=== PATIENT | female | born 1960 | race Caucasian/White ===

== ENCOUNTER 2016-12-01 13:00 | Emergency (ER) | payer OTHER ==
--- NOTE | 2016-12-01 13:24 | PDOC ---
History of Present Illness - General Chief Complaint: Injury Stated Complaint: RT KNEE PAIN Time Seen by Provider: 12/01/16 13:12 History Source: Patient Exam Limitations: No Limitations - History of Present Illness Initial Comments: 12/01/16 13:28 This is a 56-year-old female with a significant medical history of CKD Stage 5 ( no HD), Iron Deficiency, Severe Anemia (Recurrent visits for anemia), CAD (s/p CABG) who presents to the ER s/p knee injury Pt was walking on the street, lifted her right leg to go up a curb, slipped and fell backwards Pt fell backwards onto her buttocks No head trauma No LOC No amnesia Pt was able to get up and states she had difficulty walking Pain is 6/10 Describes pain as tightness Patient denies fever, chills, cough, dizziness, SOB, CP, AP, N/V/D, hematochezia , melena, hematuria, dysuria. PCP: Dr. Kay Mclaughlin Nephrology: Dr. Simone Pringle PMH: CAD, HTN, HLD, COPD, GERD, Renal Insufficiency, ANemia, Anxiety PSH: CABG Meds: please see MAR ALL: Amoxicillin, Erythromycin, PCN Social GENERAL/CONSTITUTIONAL: No: fever, chills, weakness, loss of appetite. HEAD, EYES, EARS, NOSE AND THROAT: No: change in vision, ear pain, discharge, sore throat, throat swelling. CARDIOVASCULAR: No: chest pain, lightheadedness, palpitations, syncope RESPIRATORY: No: cough, shortness of breath, wheezing, hemoptysis, stridor. GASTROINTESTINAL: No: nausea, vomiting, diarrhea, abdominal pain GENITOURINARY: No: dysuria, hematuria, frequency, urgency, flank pain. MUSCULOSKELETAL: Yes: right knee pain No: back pain SKIN AND BREASTS: No: lesions, pallor, rash or easy bruising. NEUROLOGIC: No: headache, vertigo, paresthesias, weakness ENDOCRINE: No: unexplained weight gain or loss HEMATOLOGIC/LYMPHATIC: No: anemia, easy bleeding, swelling nodes. GENERAL: The patient is in no acute distress, overall ill appearing HEAD: Normal with no signs of trauma. EYES: PERRLA, EOMI, sclera anicteric, conjunctiva clear. ENT: Ears normal, nares patent, oropharynx clear without exudates. Moist mucous membranes. NECK: Normal range of motion, supple without lymphadenopathy, JVD, or masses. LUNGS: Breath sounds equal, clear to auscultation bilaterally. No wheezes, and no crackles. HEART:Regular rate and rhythm, normal S1 and S2 without murmur, rub or gallop. ABDOMEN: Soft, nontender, normoactive bowel sounds. EXTREMITIES: (+) Right knee pain and swelling. No tenderness of the tibial area , stable anterior drawer and posterior drawer. Range of motion limited due to pain. NEUROLOGICAL: Cranial nerves II through XII grossly intact. Normal speech. No focal neurological deficits. MUSCULOSKELETAL: Back non-tender to palpation, no CVA tenderness SKIN: Warm, Dry, normal turgor, no rashes or lesions noted. Past History - Past Medical History Allergies/Adverse Reactions: Allergies Allergy/AdvReac Type Severity Reaction Status Date / Time amoxicillin Allergy Itching Verified 12/01/16 13:12 erythromycin base Allergy Itching Verified 12/01/16 13:12 [Erythromycin Base] Penicillins Allergy Itching Verified 12/01/16 13:12 Home Medications: Ambulatory Orders Metoprolol Succinate [Toprol XL -] 25 mg PO HS 04/22/13 Sodium Bicarbonate - 1,300 mg PO BID #20 tablet 01/15/15 Rosuvastatin [Crestor -] 20 mg PO HS 06/16/15 Ferrous Sulfate 325 mg PO BID 09/02/15 Pantoprazole Sodium [Protonix] 40 mg PO DAILY 11/16/15 Calcium Acetate [Phoslo -] 667 mg PO TIDCM 09/13/16 Darbepoetin Eulalio in Polysorbat [Aranesp] 60 mcg SQ WEEKLY 09/13/16 Acetaminophen W/ Codeine #3 [Tylenol # 3 -] 1 tab PO TID PRN #15 tablet MDD 3 Anemia: Yes Asthma: No Cancer: No Cardiac Disorders: Yes (TRIPLE BYPASS 2005,[place]) CVA: No COPD: No CHF: No Dementia: No Diabetes: No GI Disorders: No Disorders: Yes (NEPHROSIS. Kidney disease, not on dialysis) HTN: Yes Hypercholesterolemia: Yes Liver Disease: No Seizures: No Thyroid Disease: No - Surgical History Abdominal Surgery: No Appendectomy: No Cardiac Surgery: Yes (triple by pass 2005) Cholecystectomy: Yes (CABG) Lung Surgery: No Neurologic Surgery: No Orthopedic Surgery: No - Psycho/Social/Smoking Cessation Hx Anxiety: Yes Suicidal Ideation: No Smoking Status: No Smoking History: Never smoked Have you smoked in the past 12 months: No Number of Cigarettes Smoked Daily: 0 Cigars Per Day: 0 'Breaking Loose' booklet given: 02/14/16 Hx Alcohol Use: Yes (occasionally) Drug/Substance Use Hx: No Substance Use Type: None Hx Substance Use Treatment: No ED Treatment Course - RADIOLOGY Radiology Studies Ordered: Category Date Time Status KNEE 3 POS-RIGHT [RAD] Stat Radiology 12/01/16 13:23 Ordered Medical Decision Making - Medical Decision Making 12/01/16 14:00 Will do xray knee Pt refusing lab tests (I would like to do lab tests because pt BP slightly low, she has a history of severe anemia, and her last set of labs were done 1 month ago) Pt refusing to stay in the hospital (I have explained that I am not sure that she would even need to stay in the hospital) Pt would like to hold on getting pain meds until her xray is done Will re assess 12/01/16 16:06 Xray negative for acute fracture or dislocation Knee israel wrapped Follow up with orthopedics return to the ER with any other concerns or complaints Clinical Impression: knee pain *DC/Admit/Observation/Transfer Diagnosis at time of Disposition: Knee pain, right Qualifiers: Chronicity: acute Qualified Code(s): M25.561 - Pain in right knee - Discharge Dispostion Disposition: HOME Condition at time of disposition: Stable Admit: No - Prescriptions Prescriptions: Acetaminophen W/ Codeine #3 [Tylenol # 3 -] 1 tab PO TID PRN #15 tablet MDD 3 PRN Reason: knee pain - Referrals Referrals: Mayank Garcia MD [Staff Physician] - - Patient Instructions Printed Discharge Instructions: DI for Knee Sprain, DI for Knee Pain Additional Instructions: Jeny Please avoid any more trauma to your knee Please ice elevate and wrap your knee Please use a cane as needed to help you get around Please use medications as needed for pain Please follow up with the orthopedic doctors Return to the ER for any new complaints
[2016-12-01 13:34] VITALS: BP 98/50; PULSE 87; TEMP 98.1; BMI 21.9
== END 2016-12-01 16:15 | disposition home or self-care (01) ==
LOC: FER 13:00
DX: M25.561 Pain in right knee (principal); W10.1XXA Fall (on)(from) sidewalk curb, initial encounter; Y93.89 Activity, other specified; Y92.410 Unspecified street and highway as the place of occurrence of the external cause; I13.11 Hypertensive heart and chronic kidney disease without heart failure, with stage 5 chronic kidney disease, or end stage renal disease; N18.5 Chronic kidney disease, stage 5; Z95.1 Presence of aortocoronary bypass graft; E78.00 Pure hypercholesterolemia, unspecified
CPT/HCPCS: 73562-TC-RT; 99282-25

== ENCOUNTER 2016-12-22 10:28 | Observation (INO) | payer OTHER ==
[2016-12-22 11:11] LABS: MCH 25.1 pg (25.7-33.7); MCHC 30.3 g/dl (32.0-36.0); MEAN CELL VOLUME 82.8 fl (80-96); MEAN PLT VOLUME 7.1 fl (7.5-11.1); PLATELET COUNT 457 K/MM3 (134-434); RDW 17.7 % (11.6-15.6); WHITE BLOOD COUNT 9.9 K/mm3 (4.0-10.0)
--- NOTE | 2016-12-22 11:22 | PDOC ---
History of Present Illness - General Chief Complaint: Revisit, Lab Variance Stated Complaint: LOW H/H Time Seen by Provider: 12/22/16 10:35 - History of Present Illness Initial Comments: 12/22/16 11:23 56-year-old female with a past medical history of stage 4 to 5 CKD, anemia, requiring transfusions every 6-8 weeks, CABG, hypertension, hyperlipidemia, Her anemia is a mixed picture of CKD anemia, and iron deficiency anemia from chronic low-grade GI blood loss She has refused colonoscopy, and although dialysis has been discussed with her, at this time she has not wanted to start dialysis either Patient has been in her usual state of health, and had blood work done She was called today that her hemoglobin was 5.8, and told to come to the emergency department because she needs a transfusion She denies any chest pain or dyspnea on exertion She denies any change in her chronic lower extremity edema She is complaining of some knee pain after a fall, but she was seen in the emergency department for this, and did have x-rays She denies any bright red blood in her stool, or black tarry stool She denies any recent intercurrent illnesses-she denies any fevers or chills, vomiting or diarrhea, chest pain or abdominal pain She states that clinically, she would not have known that her blood counts were quite so low, but she does not feel any differently than she did 2-3 weeks ago She denies any other complaints at this time, and the remainder of the review of systems is negative Past History - Past Medical History Allergies/Adverse Reactions: Allergies Allergy/AdvReac Type Severity Reaction Status Date / Time amoxicillin Allergy Itching Verified 12/22/16 10:31 erythromycin base Allergy Itching Verified 12/22/16 10:31 [Erythromycin Base] Penicillins Allergy Itching Verified 12/22/16 10:31 Home Medications: Ambulatory Orders Metoprolol Succinate [Toprol XL -] 25 mg PO HS 04/22/13 Sodium Bicarbonate - 1,300 mg PO BID #20 tablet 01/15/15 Rosuvastatin [Crestor -] 20 mg PO HS 06/16/15 Ferrous Sulfate 325 mg PO BID 09/02/15 Pantoprazole Sodium [Protonix] 40 mg PO DAILY 11/16/15 Calcium Acetate [Phoslo -] 667 mg PO TIDCM 09/13/16 Darbepoetin Eulalio in Polysorbat [Aranesp] 60 mcg SQ WEEKLY 09/13/16 Acetaminophen W/ Codeine #3 [Tylenol # 3 -] 1 tab PO TID PRN #15 tablet MDD 3 Anemia: Yes Asthma: No Cancer: No Cardiac Disorders: Yes (TRIPLE BYPASS 2005,[place]) CVA: No COPD: No CHF: No Dementia: No Diabetes: No GI Disorders: No Disorders: Yes (NEPHROSIS. Kidney disease, not on dialysis) HTN: Yes Hypercholesterolemia: Yes Liver Disease: No Psychiatric Problems: Yes (ANXIETY) Seizures: No Thyroid Disease: No - Surgical History Abdominal Surgery: No Appendectomy: No Cardiac Surgery: Yes (triple by pass 2005) Cholecystectomy: Yes (CABG) Lung Surgery: No Neurologic Surgery: No Orthopedic Surgery: No - Psycho/Social/Smoking Cessation Hx Anxiety: Yes Suicidal Ideation: No Smoking Status: No Smoking History: Never smoked Have you smoked in the past 12 months: No Number of Cigarettes Smoked Daily: 0 Cigars Per Day: 0 Information on smoking cessation initiated: No 'Breaking Loose' booklet given: 02/14/16 Hx Alcohol Use: No Drug/Substance Use Hx: No Substance Use Type: None Hx Substance Use Treatment: No Review of Systems - Review of Systems Able to Perform ROS?: Yes Comments:: 12/22/16 11:25 . *Physical Exam - Vital Signs Last Vital Signs Temp Pulse Resp BP Pulse Ox 98 F 63 18 153/87 98 12/22/16 10:32 12/22/16 10:32 12/22/16 10:32 12/22/16 10:32 12/22/16 10:47 - Physical Exam Comments: 12/22/16 11:32 Physical exam Last Vital Signs Temp Pulse Resp BP Pulse Ox 98 F 63 18 153/87 98 12/22/16 10:32 12/22/16 10:32 12/22/16 10:32 12/22/16 10:32 12/22/16 10:47 GENERAL: The patient is awake, alert, and fully oriented, and in no apparent distress. HEAD: Normal with no signs of trauma. EYES: Conjunctiva pale ENT: Moist mucous membranes. NECK: Normal range of motion, supple LUNGS: Breath sounds equal, clear to auscultation bilaterally. No wheezes, and no crackles. HEART: Regular rate and rhythm, normal S1 and S2 without murmur, rub or gallop. ABDOMEN: Soft, nontender, normoactive bowel sounds. No guarding, no rebound. No masses appreciated. EXTREMITIES: 2+ pitting pedal edema, which patient states is chronic and unchanged NEUROLOGICAL: Cranial nerves II through XII grossly intact. Normal speech, normal gait. Grossly nonfocal neurologic exam PSYCH: Normal mood, normal affect. SKIN: Warm, Dry, ED Treatment Course - LABORATORY CBC & Chemistry Diagram: 12/22/16 11:00 12/22/16 11:00 - ADDITIONAL ORDERS Additional order review: 12/22/16 11:00 RBC 2.35 L MCV 82.8 MCHC 30.3 L RDW 17.7 H D MPV 7.1 L Medical Decision Making - Medical Decision Making 12/22/16 11:33 Patient with 2 potential sources of severe recurrent anemia-stage V CK D, and slow GI bleed, for which she has not had a colonoscopy or workup per her emissions testing and repair technician She has been requiring transfusions every 6-8 weeks, but is not had a transfusion for 12 weeks She was called today by her emissions testing and repair technician, and told that her hemoglobin was 5.8 and she needed to go to the hospital and have her transfusion 12/22/16 12:31 Laboratory Results - last 24 hr 12/22/16 12/22/16 12/22/16 11:00 11:00 11:31 WBC 9.9 RBC 2.35 L Hgb 5.9 L* Hct 19.4 L MCV 82.8 MCHC 30.3 L RDW 17.7 H D Plt Count 457 H D MPV 7.1 L Stool Occult Blood Trace Crossmatch See Detail 2Uof PRBCs ordered Will place in observation and transfuse 12/22/16 12:[address] Kay Mclaughlin-wants the patient admitted to the hospitalist service case discussed with hospitalist-Will place in observation for transfusion 12/22/16 12:52 EKG Sinus tachycardia 110 0 axis Normal AV and IV conduction time Normal QTC Nonspecific ST-T wave abnormality Chemistry machine down-CMP sent to [facility]-results still pending ADMITTING Case discussed in detail with admitting physician including history, physical exam and ancillary studies. Admitting physician has assumed care for the patient, will follow all pending diagnostics and will complete the evaluation and treatment. *DC/Admit/Observation/Transfer Diagnosis at time of Disposition: Severe anemia, ESRD (end stage renal disease) - Discharge Dispostion Disposition: AGAINST MEDICAL ADVICE Condition at time of disposition: Fair Admit: Yes
[2016-12-22] MEDS ORDERED: ONDANSETRON 4 MG/2 ML VIAL IVPB ONE (12:12)
[2016-12-22] MEDS ORDERED: ONDANSETRON 4 MG/2 ML VIAL ONE (12:15)
--- NOTE | 2016-12-22 12:49 | EKG ---
Test Reason : Blood Pressure : / mmHG Vent. Rate : 110 BPM Atrial Rate : 110 BPM P-R Int : 118 ms QRS Dur : 086 ms QT Int : 342 ms P-R-T Axes : 007 -06 060 degrees QTc Int : 462 ms POOR DATA QUALITY, INTERPRETATION MAY BE ADVERSELY AFFECTED SINUS TACHYCARDIA NONSPECIFIC T WAVE ABNORMALITY ABNORMAL ECG Confirmed by SISSY SINGLETON MD ([id number]) on 12/22/2016 12:48:31 PM Referred By: LISA Confirmed By:SISSY SINGLETON MD
[2016-12-22 13:30] LABS: TROPONIN I (DFP) 0.09 ng/ml (0.03-0.50)
[2016-12-22] MEDS ORDERED: ACETAMINOPHEN WITH CODEINE 300MG/30MG TABLET PO PRN (13:48)
--- NOTE | 2016-12-22 13:54 | HP ---
CHIEF COMPLAINT: fatigiue PCP: Eleazar carton machine operator: Dr Nichols HISTORY OF PRESENT ILLNESS: patient is a 56 -year-old female with a past medical history of stage V CK D, anemia ( multiple blood transfusions), CABG, hypertension, hyperlipidemia. Patient reports ongoing fatigue for the past week. was evaluated by her carton machine operator, Dr Nichols, blood work was completed and was referred to the emergency department for blood transfusion. ER course was notable for: (1)hgb 5.9 (2) creatine 7.7 BUN 80 (3) EKG sinus tachycardia, normal axis Recent Travel: none Social History: resides with Smoking:none Alcohol:one Drugs: none Family History: Allergies amoxicillin Allergy (Verified 12/22/16 10:31) Itching erythromycin base [Erythromycin Base] Allergy (Verified 12/22/16 10:31) Itching BECOMES VERY DIZZY Penicillins Allergy (Verified 12/22/16 10:31) Itching itchy HOME MEDICATIONS: Medication Instructions Recorded Metoprolol Succinate [Toprol XL -] 25 mg PO HS 04/22/13 Sodium Bicarbonate - 1,300 mg PO BID #20 tablet 01/15/15 Rosuvastatin [Crestor -] 20 mg PO HS 06/16/15 Ferrous Sulfate 325 mg PO BID 09/02/15 Pantoprazole Sodium [Protonix] 40 mg PO DAILY 11/16/15 Calcium Acetate [Phoslo -] 667 mg PO TIDCM 09/13/16 Darbepoetin Eulalio in Polysorbat 60 mcg SQ WEEKLY 09/13/16 [Aranesp] Acetaminophen W/ Codeine #3 1 tab PO TID PRN #15 tablet MDD 3 12/01/16 [Tylenol # 3 -] REVIEW OF SYSTEMS CONSTITUTIONAL: present: Generalized weakness, fatigue Absent: fever, chills, diaphoresis, , malaise, loss of appetite, weight change HEENT: Absent: rhinorrhea, nasal congestion, throat pain, throat swelling, difficulty swallowing, mouth swelling, ear pain, eye pain, visual changes CARDIOVASCULAR: Absent: chest pain, syncope, palpitations, irregular heart rate, lightheadedness , peripheral edema RESPIRATORY: Absent: cough, shortness of breath, dyspnea with exertion, orthopnea, wheezing, stridor, hemoptysis GASTROINTESTINAL: Absent: abdominal pain, abdominal distension, nausea, vomiting, diarrhea, constipation, melena, hematochezia GENITOURINARY: Absent: dysuria, frequency, urgency, hesitancy, hematuria, flank pain, genital pain MUSCULOSKELETAL: Absent: myalgia, arthralgia, joint swelling, back pain, neck pain SKIN: Absent: rash, itching, pallor HEMATOLOGIC/IMMUNOLOGIC: Absent: easy bleeding, easy bruising, lymphadenopathy, frequent infections ENDOCRINE: Absent: unexplained weight gain, unexplained weight loss, heat intolerance, cold intolerance NEUROLOGIC: Absent: headache, focal weakness or paresthesias, dizziness, unsteady gait, seizure, mental status changes, bladder or bowel incontinence PSYCHIATRIC: Absent: anxiety, depression, suicidal or homicidal ideation, hallucinations. PHYSICAL EXAMINATION GENERAL: Awake, alert, and fully oriented, in no acute distress. HEAD: Normal with no signs of trauma. EYES: Pupils equal, round and reactive to light, extraocular movements intact, sclera anicteric, pale conjunctiva, No lid lag. EARS, NOSE, THROAT: Ears normal, nares patent, oropharynx clear without exudates. pale mucous membranes. NECK: Normal range of motion, supple without lymphadenopathy, JVD, or masses. LUNGS: Breath sounds equal, clear to auscultation bilaterally. No wheezes, and no crackles. No accessory muscle use. HEART: Regular rate and rhythm, normal S1 and S2 without murmur, rub or gallop. ABDOMEN: Soft, nontender, not distended, normoactive bowel sounds, no guarding, no rebound, no masses. No hepatomegaly or splenomegaly. MUSCULOSKELETAL: Normal range of motion at all joints. No bony deformities or tenderness. No CVA tenderness. UPPER EXTREMITIES: 2+ pulses, warm, well-perfused. No cyanosis. No clubbing. Cap refill <2 seconds. No peripheral edema. LOWER EXTREMITIES: 2+ pulses, warm, well-perfused. No calf tenderness. No peripheral edema. NEUROLOGICAL: Cranial nerves II-XII intact. Normal speech. Normal gait. PSYCHIATRIC: Cooperative. Good eye contact. Appropriate mood and affect. SKIN: Warm, dry, normal turgor, no rashes or lesions noted. ASSESSMENT/PLAN: 1) heme: normocytic anemia - Hemoglobin 5.9, baseline 9,no active bleeding noted - known to be stool guaiac positive in the past has declined colonoscopy/EGD, continue to decline GI consult - transfuse 2 unit PRBC repeat in a.m. would prefer hgb 9 due to pmh of CAD and cardiomegly noted on past xray, lasix 40mg ordered between units 2)nephrology CKD V - Continues to decline hemodialysis - Continue PhosLo and sodium bicarbonate - case discussed with Dr Nichols (nephrology) creatine is at baseline 3) card Hypertension - continue Toprol B/P at goal CAD - continue Crestor 4) ms - Reports twisting right knee walking on ice last year, currently under the treatment of Dr. Garcia orthopedist - Continue Tylenol with Codeine when necessary for for pain - Scheduled outpatient MRI of right knee for 12/25/2016 at 11:30 AM F/E/N - Renal diet ppx - protonix - scd/lakeisha dispo: requires 24-hour observation Visit type - Emergency Visit Emergency Visit: Yes ED Registration Date: 12/22/16 Care time: The patient presented to the Emergency Department on the above date and was hospitalized for further evaluation of their emergent condition. - New Patient This patient is new to me today: Yes Date on this admission: 12/22/16 - Critical Care Critical Care patient: No
[2016-12-22 13:56] LABS: ALBUMIN 2.9 g/dl (3.4-5.0); BILIRUBIN,TOTAL 0.3 mg/dL (0.2-1.0); CALCIUM 9.5 mg/dL (8.5-10.1); TOT PROT 5.8 g/dl (6.4-8.2)
[2016-12-22 14:04] LABS: CREATININE 7.7 mg/dL (0.55-1.02)
[2016-12-22 14:10] VITALS: BMI 21.4
[2016-12-22] MEDS ORDERED: FUROSEMIDE 40 MG/4 ML INJECTABLE VIAL IVPUSH ONE (14:26)
[2016-12-22] MEDS ORDERED: MAG HYDROX/AL HYDROX/SIMETH 30 ML UNIT-DOSE CUP PO PRN (16:53)
[2016-12-22] MEDS ORDERED: CALCIUM ACETATE 667 MG CAPSULE (FP) PO SCH (17:30)
[2016-12-22] MEDS ORDERED: ROSUVASTATIN CA 20 MG TABLET (FP) PO ONE (22:00)
[2016-12-22] MEDS ORDERED: FERROUS SO4 325 MG TABLET (FP) PO SCH (22:00)
[2016-12-22] MEDS ORDERED: SODIUM BICARBONATE 650 MG TABLET PO SCH (22:00)
[2016-12-22 22:36] VITALS: BP 133/75; PULSE 113; TEMP 98.8
[2016-12-23] MEDS ORDERED: ROSUVASTATIN CA 10 MG TABLET (FP) PO SCH (22:00)
== END 2016-12-22 22:00 | disposition left against medical advice (07) ==
LOC: FER 10:28 → UNDOADMOB 12:56 → JERBED 12:56 → FM/S 13:24
PROVIDERS: ADMIT Internal Medicine; ATTEND Nurse Practitioner Acute Care
PROC: 30233N1 Transfusion of Nonautologous Red Blood Cells into Peripheral Vein, Percutaneous Approach (ICD-10-PCS; principal; 2016-12-22)
DX: D63.1 Anemia in chronic kidney disease (principal); I12.0 Hypertensive chronic kidney disease with stage 5 chronic kidney disease or end stage renal disease; N18.5 Chronic kidney disease, stage 5; I25.10 Atherosclerotic heart disease of native coronary artery without angina pectoris
CPT/HCPCS: 36430; P9021; 36415; 71010-TC; 80053; 82272; 82550; 84484; 85027; 86850; 86900; 86901; 86922; 93005; 99285-25; G0378; P9038; P9058

== ENCOUNTER 2017-05-26 11:07 | Day surgery (SDC) | payer OTHER ==
[2017-05-26] MEDS ORDERED: IRON SUCROSE INJECTION 100 MG in SODIUM CHLORIDE 100 ML IVPB ONE (12:00)
[2017-05-26 12:43] VITALS: TEMP 98.9
--- NOTE | 2017-05-26 13:13 | CONSULT ---
Consult Consult Specialty:: Nephrology ( Drs. Curtis/ Simone) Reason for Consultation:: Advanced CKD - History of Present Illness Chief Complaint: The patient is 56 y/o WF, admitted with profound Anemia for Iron infusion. The patient has ESRD, and had been refusing dialysis for a long time. Her last documented Hgb was 5.9 gm/dL., and her lasr dicumented GFR was 5 ml/min/1.73m2. H/o HTN, Coronary artery disease, anemia History of Present Illness: Patient with ESRD, CAD, s/p CABG, s/p Multiple transfusions for refractory Anemia, admitted for IV Iron Infusion. The patient had been refusing Renal replacement therapy, even at this low renal function. The patient is weak, tired, uremic. Reports making some urine. with her. - History Source History Provided By: Patient, Family Member Limitations to Obtaining History: No Limitations - Past Medical History Cardio/Vascular: Yes: CAD, HTN, Hyperlipdemia Pulmonary: Yes: COPD Gastrointestinal: Yes: GERD (on a PPI ) Renal/: Yes: Renal Failure, Renal Inusuff (Nephrotic syndrome as a child, Ischemic nephropathy). 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 History of Recent Travel: No Home Medications - Allergies Allergies/Adverse Reactions: Allergies Allergy/AdvReac Type Severity Reaction Status Date / Time amoxicillin Allergy Itching Verified 12/22/16 10:31 erythromycin base Allergy Itching Verified 12/22/16 10:31 [Erythromycin Base] Penicillins Allergy Itching Verified 12/22/16 10:31 - Home Medications Home Medications: Ambulatory Orders Metoprolol Succinate [Toprol XL -] 25 mg PO HS 04/22/13 Sodium Bicarbonate - 1,300 mg PO BID #20 tablet 01/15/15 Rosuvastatin [Crestor -] 20 mg PO HS 06/16/15 Ferrous Sulfate 325 mg PO BID 09/02/15 Pantoprazole Sodium [Protonix] 40 mg PO DAILY 11/16/15 Calcium Acetate [Phoslo -] 667 mg PO TIDCM 09/13/16 Darbepoetin Eulalio in Polysorbat [Aranesp] 60 mcg SQ WEEKLY 09/13/16 Acetaminophen W/ Codeine #3 [Tylenol # 3 -] 1 tab PO TID PRN #15 tablet MDD 3 Review of Systems - Review of Systems Constitutional: reports: Chills, Lethargy, Loss of Appetite, Weakness Cardiovascular: reports: Shortness of Breath. denies: Chest Pain Genitourinary: denies: Burning Musculoskeletal: reports: No Symptoms Neurological: reports: Confusion Physical Exam Vital Signs: Vital Signs Temperature 98.9 F 05/26/17 12:53 Pulse Rate 105 H 05/26/17 12:53 Respiratory Rate 22 05/26/17 12:53 Blood Pressure 131/76 05/26/17 12:53 O2 Sat by Pulse Oximetry (%) Constitutional: Yes: Anxious, Mild Distress, Pallor HENT: Yes: Atraumatic Neck: Yes: Trachea Midline Cardiovascular: Yes: S1, S2 Respiratory: Yes: CTA Bilaterally, Poor Air Entry. No: Rales, Rhonchi Gastrointestinal: Yes: Normal Bowel Sounds, Soft Edema: Yes Edema: LLE: Trace, RLE: Trace Neurological: Yes: Alert Problem List - Problems (1) CAD (coronary artery disease) Code(s): I25.10 - ATHSCL HEART DISEASE OF [place] CORONARY ARTERY W/O ANG PCTRS (2) Anemia Code(s): D64.9 - ANEMIA, UNSPECIFIED Qualifiers: Anemia type: unspecified type Qualified Code(s): D64.9 - Anemia, unspecified (3) Chronic kidney disease (CKD) Code(s): N18.9 - CHRONIC KIDNEY DISEASE, UNSPECIFIED (4) ESRD (end stage renal disease) Code(s): N18.6 - END STAGE RENAL DISEASE (5) Hypertension Code(s): I10 - ESSENTIAL (PRIMARY) HYPERTENSION (6) Uremia Code(s): N19 - UNSPECIFIED KIDNEY FAILURE Assessment/Plan 56 y/o female with advanced Renal failure, admitted for IV Iron infusion. Denies any chest pain.Has advanced ESRD, with uremic symptoms The patient should be started on some form of DRIVING TEACHER nu. Had lengthey discussion with her and her husbnd. The patient's clinical status might deteriorate to a point of imcompatibility with if, if she continues to decline DRIVING TEACHER. They are going to "think about it over the weekend". Will call me next week about their decision. Thanks again. Ursula Curtis MD
[2017-05-26 14:13] VITALS: BP 133/76; PULSE 95
== END 2017-05-26 14:11 | disposition home or self-care (01) ==
LOC: J7W 11:07 → JINFUSION 11:07
PROVIDERS: ATTEND Internal Medicine Nephrology
PROC: 3E033GC Introduction of Other Therapeutic Substance into Peripheral Vein, Percutaneous Approach (ICD-10-PCS; principal; 2017-05-26)
DX: D50.9 Iron deficiency anemia, unspecified (principal)
CPT/HCPCS: 96365; J1756

== ENCOUNTER 2018-07-24 12:05 | Day surgery (SDC) | payer OTHER ==
[2018-07-23 14:58] VITALS: BMI 22.2
[~2018-07-24 12:05] MED LIST: HEPARIN NA (PORCINE) 5,000 UNITS/ML 1ML VIAL SQ ONE
[2018-07-24] MEDS ORDERED: BUPIVACAINE HCL/PF 0.5% (5MG/ML) 10 ML VIAL ONE (12:44)
[2018-07-24] MEDS ORDERED: DEXAMETHASONE SOD PHOSPHATE/PF 10 MG/ML SDV ONE (12:44)
[2018-07-24] MEDS ORDERED: MIDAZOLAM HCL 2 MG/2 ML SINGLE DOSE VIAL ONE ×3 (12:46→13:50)
[2018-07-24] MEDS ORDERED: ONDANSETRON 4 MG/2 ML VIAL IVPUSH PRN (12:55)
--- NOTE | 2018-07-24 13:06 | HP ---
History & Physical Update - History History: No Change - Physical Physical: No Change - Assessment Assessment: No Change - Plan Plan: No Change (no change since visit on 07/09/18)
[2018-07-24] MEDS ORDERED: LIDOCAINE HCL 2% (20ML MULTI-DOSE VIAL) NR ONE (13:17)
[2018-07-24] MEDS ORDERED: HEPARIN NA (PORCINE) 5,000 UNITS/ML 1ML VIAL ONE (13:17)
[2018-07-24] MEDS ORDERED: PAPAVERINE HCL 30 MG/1 ML 10 ML VIAL NR ONE (13:17)
[2018-07-24] MEDS ORDERED: POVIDONE-IODINE OINTMENT 10% - 28.4 GM TUBE ONE (13:29)
[2018-07-24] MEDS ORDERED: HEPARIN NA (PORCINE) 5,000 UNITS/ML 1ML VIAL SQ ONE (14:02)
--- NOTE | 2018-07-24 15:09 | OP ---
Operative Note - Note: Operative Date: 07/24/18 Pre-Operative Diagnosis: ESRD Operation: Creation AV fistula left arm Findings: Small patent cephalic vein and brachial artery Post-Operative Diagnosis: Same as Pre-op Surgeon: Santos Woody [employer] Mgr: Galilea Melgar Anesthesiologist/GIS TECHNICIAN: Kelvin Weber Anesthesia: MAC
[2018-07-24 15:34] VITALS: TEMP 98.1
--- NOTE | 2018-07-24 16:29 | SURG ---
Surgery Prefitter Doors Note Prefitter Doors: Galilea Melgar PA-C Date of Service: 07/24/18 Diagnosis: ESRD Procedure: Creation AV fistula left arm I was present for the entirety of the operative procedure. For further detail, please refer to operative report. Visit type - Case Type Case Type: Scheduled - Emergency Emergency Visit: No - New patient This patient is new to me today: Yes Date on this admission: 07/24/18
[2018-07-24 18:17] VITALS: BP 136/80; PULSE 80
--- NOTE | 2018-08-07 13:55 | OP ---
DATE OF OPERATION: 07/24/2018 SURGEON: Santos Woody MD PROCEDURE: Creation of arteriovenous fistula, left arm. PREOPERATIVE DIAGNOSIS: Renal failure. POSTOPERATIVE DIAGNOSIS: Renal failure. ANESTHESIA: MAC. ANESTHESIOLOGIST: Kelvin Weber MD INSULATION WORKER APPRENTICE: ANATOLY Melgar OPERATIVE FINDINGS: The brachial artery and cephalic vein were patent, with diameters of approximately 2.5 mm. OPERATIVE PROCEDURE: Following routine patient identification with side and site verification, IV sedation was established. The left arm was prepped with ChloraPrep. Timeout was performed. Lidocaine 1% was infiltrated over the cephalic vein in the antecubital space. Skin incision was made and was carried down through subcutaneous tissues using cautery for hemostasis. The vein was mobilized and ligated distally. It was incised and distended with heparin and papaverine solution. No. 5 and No. 8 feeding tubes were passed proximally without resistance, and the vein was filled with heparin solution, was reoccluded. The artery was then exposed above the elbow using a separate incision. The artery was encircled proximally and distally with Vesseloops, and any side branches were ligated with silk ties and divided. The vein was exposed further proximally by extension of the incision and freed. The vein was then passed through a short subcutaneous tunnel to lie next to the artery. The artery was occluded with Vesseloops and opened on the exposed surface with a 6- mm arteriotomy. The end of the vein was spatulated and anastomosed to the side of the artery with running suture of 6-0 Prolene. Prior to completion of the suture line, the artery was allowed to backbleed and flush. The vein was flushed with heparin and was reoccluded. The suture line was completed and all vessels were released. There was flow through the anastomosis with a thrill in the vein. Bleeding from the suture line was controlled with Surgicel. When hemostasis was achieved, the wounds were irrigated and closed with interrupted suture of 3-0 Vicryl in subcutaneous tissues and skin cornelia. Sterile dressings were applied, and the patient was taken to recovery room in stable condition. Iva [id number] MTDD
== END 2018-07-24 17:10 | disposition home or self-care (01) ==
LOC: JASU-SURG 12:05
PROVIDERS: ATTEND Surgery
PROC: 03180ZD Bypass Left Brachial Artery to Upper Arm Vein, Open Approach (ICD-10-PCS; principal; 2018-07-24 13:00)
DX: I12.0 Hypertensive chronic kidney disease with stage 5 chronic kidney disease or end stage renal disease (principal)
CPT/HCPCS: 36415; 84132; 94760; J1644

== ENCOUNTER 2019-07-16 15:46 | Emergency (ER) | payer OTHER ==
[2019-07-16 15:53] VITALS: BP 153/89; PULSE 76; TEMP 98.7; BMI 21.4
== END 2019-07-16 16:51 | disposition left against medical advice (07) ==
LOC: JER 15:46
DX: Z53.21 Procedure and treatment not carried out due to patient leaving prior to being seen by health care provider (principal)
CPT/HCPCS: 99281-25

== ENCOUNTER 2019-07-22 21:50 | Inpatient (IN) | payer OTHER ==
--- NOTE | 2019-07-22 22:11 | PDOC ---
History of Present Illness - History of Present Illness Initial Comments: 59 year old female with PMH of HTN and ESRD presenting with tachycardia and fever to 100.8 during dialysis earlier today 10 hours after portacath placement. Dr. Torres called us and informed us that the patient's portacath on the left upper chest was placed a few days prior for a clotted left AVF and is also now non-functioning so a right chest portacath was placed. She dos have nausea/ vomitign ater every dialysis session and admits to that this time as well. Denies diarrhea, abdominal pain, or other symptoms. 07/23/19 05:21 <Herb Gill - Last Filed: 07/23/19 05:21> <Navdeep Lea - Last Filed: 07/23/19 06:18> - General Chief Complaint: Tachycardia Stated Complaint: HYPERTENTION Time Seen by Provider: 07/22/19 22:11 Past History - Past Medical History Anemia: Yes Asthma: No Cancer: No Cardiac Disorders: Yes (TRIPLE [place]PASS 2005,[place]) CVA: No COPD: No CHF: No Dementia: No Diabetes: No Dialysis: Yes GI Disorders: Yes (acid reflux) Disorders: Yes (NEPHROSIS. Kidney disease, not on dialysis) HTN: Yes Hypercholesterolemia: Yes Liver Disease: No Psychiatric Problems: Yes (ANXIETY) Seizures: No Thyroid Disease: No - Surgical History Abdominal Surgery: No Appendectomy: No Cardiac Surgery: Yes (triple by pass 2005) Cholecystectomy: Yes (CABG) Lung Surgery: No Neurologic Surgery: No Orthopedic Surgery: No - Suicide/Smoking/Psychosocial Hx Smoking Status: No Smoking History: Never smoked Have you smoked in the past 12 months: No Number of Cigarettes Smoked Daily: 0 Cigars Per Day: 0 'Breaking Loose' booklet given: 02/14/16 Hx Alcohol Use: No Drug/Substance Use Hx: No Substance Use Type: Alcohol Hx Substance Use Treatment: No <Herb Gill - Last Filed: 07/23/19 05:21> <Navdeep Lea - Last Filed: 07/23/19 06:18> - Past Medical History Allergies/Adverse Reactions: Allergies Allergy/AdvReac Type Severity Reaction Status Date / Time amoxicillin Allergy Itching Verified 07/22/19 22:00 erythromycin base Allergy Itching Verified 07/22/19 22:00 [Erythromycin Base] Penicillins Allergy Itching Verified 07/22/19 22:00 Home Medications: Ambulatory Orders Metoprolol Succinate [Toprol XL -] 25 mg PO DAILY 04/22/13 Albuterol Sulfate Inhaler - [Ventolin HFA Inhaler -] 2 inh PO PRN PRN 06/06/18 Cinacalcet HCl [Sensipar] 60 mg PO DAILY 06/06/18 Calcitriol 0.5 mcg PO DAILY 07/23/19 Ketorolac 0.5% Eye Drop 1 drop OP QID 07/23/19 Prednisolone 1% Ophthalmic [Pred Forte 1% -] 1 drop OP BID 07/23/19 Ranitidine [Zantac -] 150 mg PO DAILY 07/23/19 Rosuvastatin Calcium [Crestor] 20 mg PO DAILY 07/23/19 Review of Systems - Review of Systems Constitutional: No: Chills, Diaphoresis, Fever, Loss of Appetite HEENTM: No: Eye Pain, Blurred Vision, Tearing Respiratory: No: Cough, Orthopnea, Shortness of Breath Cardiac (ROS): No: Chest Pain, Edema, Irregular Heart Rate ABD/GI: Yes: Nausea, Vomiting. No: Diarrhea : No: Burning, Dysuria, Discharge Musculoskeletal: No: Back Pain, Joint Pain Integumentary: No: Lesions, Lumps, Pallor Neurological: No: Headache, Numbness, Paresthesia, Tingling Psychiatric: Yes: Anxiety. No: Depression Hematologic/Lymphatic: No: Anemia, Blood Clots, Easy Bleeding <Herb Gill - Last Filed: 07/23/19 05:21> *Physical Exam - Vital Signs Last Vital Signs Temp Pulse Resp BP Pulse Ox 98.3 F 135 H 20 147/94 96 07/22/19 22:00 07/22/19 22:00 07/22/19 22:00 07/22/19 22:00 07/22/19 22:00 - Physical Exam General Appearance: Yes: Nourished, Appropriately Dressed, Apparent Distress, Mild Distress (occasionally becomign very anxious and worried) HEENT: positive: EOMI, CURTIS, Normal ENT Inspection, Normal Voice Neck: positive: Trachea midline, Normal Thyroid, Supple. negative: Tender, Rigid Respiratory/Chest: positive: Lungs Clear, Normal Breath Sounds, Respiratory Distress, Other (left sided portacath entry site CDI (portacath removed) and right sided portacath site (portacath in pklce) CDI. left bidcep AVF CDI. ). negative: Chest Tender, Accessory Muscle Use Cardiovascular: positive: Regular Rhythm, Tachycardia. negative: Regular Rate Gastrointestinal/Abdominal: positive: Normal Bowel Sounds, Flat, Soft. negative : Tender Lymphatic: negative: Tenderness Musculoskeletal: positive: Normal Inspection. negative: Decreased Range of Motion Extremity: positive: Normal Capillary Refill, Normal Inspection, Normal Range of Motion. negative: Tender Integumentary: positive: Normal Color, Dry, Warm Neurologic: positive: Fully Oriented, Alert, Motor Strength 5/5. negative: Normal Mood/Affect (very easily bursts into tears and very anxious in gerneral) , Normal Response <Herb Gill - Last Filed: 07/23/19 05:21> - Vital Signs Last Vital Signs Temp Pulse Resp BP Pulse Ox 98.3 F 135 H 20 147/94 96 07/22/19 22:00 07/22/19 22:00 07/22/19 22:00 07/22/19 22:00 07/22/19 22:00 <Navdeep Lea - Last Filed: 07/23/19 06:18> ED Treatment Course - LABORATORY CBC & Chemistry Diagram: 07/23/19 00:00 07/23/19 00:00 <Herb Gill - Last Filed: 07/23/19 05:21> - LABORATORY CBC & Chemistry Diagram: 07/23/19 00:00 07/23/19 00:00 - ADDITIONAL ORDERS Additional order review: Laboratory Results 07/23/19 07/23/19 07/23/19 00:00 00:00 00:00 PT with INR 14.30 H INR 1.21 H PTT (Actin FS) VBG pH 7.39 POC VBG pCO2 40.0 POC VBG pO2 < 49 H VBG HCO3 23.6 VBG O2 Sat (Brian) 76.8 VBG Base Excess -0.8 Sodium Potassium Chloride Carbon Dioxide Anion Gap BUN Creatinine Est GFR (CKD-EPI)AfAm Est GFR (CKD-EPI)NonAf Random Glucose Lactic Acid 0.8 Calcium Total Bilirubin AST ALT Alkaline Phosphatase Total Protein Albumin 07/23/19 07/23/19 00:00 00:00 PT with INR INR PTT (Actin FS) 29.4 VBG pH POC VBG pCO2 POC VBG pO2 VBG HCO3 VBG O2 Sat (Brian) VBG Base Excess Sodium 137 Potassium 5.1 Chloride 102 Carbon Dioxide 23 Anion Gap 12 BUN 57.9 H Creatinine 7.0 H Est GFR (CKD-EPI)AfAm 6.84 Est GFR (CKD-EPI)NonAf 5.90 Random Glucose 95 Lactic Acid Calcium 9.4 Total Bilirubin 0.6 AST 8 L ALT 8 L Alkaline Phosphatase 180 H Total Protein 6.4 Albumin 3.3 L 07/23/19 00:00 RBC 3.62 MCV 90.2 MCHC 32.0 RDW 15.2 MPV 8.7 Neutrophils % 76.2 Lymphocytes % 13.8 Monocytes % 9.5 Eosinophils % 0.0 Basophils % 0.5 - Medications Given in the ED: ED Medications Discontinued Medications Generic Name Dose Route Start Last Admin Trade Name Freq PRN Reason Stop Dose Admin Vancomycin HCl 1,500 mg/ 500 mls @ 250 mls/hr 07/23/19 02:24 07/23/19 04:07 Dextrose IVPB 07/23/19 04:23 250 mls/hr ONCE ONE Administration <Navdeep Lea - Last Filed: 07/23/19 06:18> Medical Decision Making - Medical Decision Making 59 year old female with PMH of HTN, anxiety, and ESRD presenting to the ED after a fever and tachycardia noticed at dialysis 10 hours s/p right sided portacath placement. Patient afebrile here but remained tachcyardic throughout stay. LAbs WNL. Discussed patient with Dr. Torres and he will evaluate and dialyze tomorrow AM. Unclear reason for her tachycardia but patient does appear very anxious, However, given her immunocompromised ESRD status, patient will be admitted for further infectious workup with blood cultures pending and s/p one dose of vancomycin. 07/23/19 05:42 <Herb Gill - Last Filed: 07/23/19 05:21> *DC/Admit/Observation/Transfer - Discharge Dispostion Decision to Admit order: Yes <Herb Gill - Last Filed: 07/23/19 05:21> - Attestations Physician Attestion: 07/23/19 06:18 I have reviewed the plan as documented and agree with current plan as documented. Electronically co-signed by Navdeep Lea MD <Navdeep Lea - Last Filed: 07/23/19 06:18> Diagnosis at time of Disposition: Tachycardia - Discharge Dispostion Condition at time of disposition: Stable
--- NOTE | 2019-07-22 23:23 | PDOC ---
Documentation entered by Jim Espinoza SCRIBE, acting as scribe for Navdeep Lea MD. Navdeep Lea MD: This documentation has been prepared by the Alexis louise Daniel, SCRIBE, under my direction and personally reviewed by me in its entirety. I confirm that the documentation accurately reflects all work, treatment, procedures, and medical decision making performed by me. Attending Attestation - Resident Resident Name: Herb Gill - ED Attending Attestation I have performed the following: I have examined & evaluated the patient, The case was reviewed & discussed with the resident, I agree w/resident's findings & plan, Exceptions are as noted - HPI HPI: 07/22/19 22:50 The patient is a 59 year old female with a past medical history of CKD here today for evaluation of tachycardia and fever. The patient reports that she had a permacath placed today by Dr. Woody after her fistula clotted. She reports that she became very anxious today while at dialysis and was told that her heart rate was 138 and her temperature was 100.5. She also notes some nausea and vomiting but states that this is normal for her when she gets anxious. She was given tylenol at the dialysis center. Patient denies headache, lightheadedness. Denies chills. Denies chest pain, shortness of breath. Denies diarrhea, abdominal pain. Denies vision changes, weakness. Allergies: amoxicillin, erythromycin base, penicillins PCP: Marry Gan Wrap Yarn Sorter: Vanessa Torres 07/22/19 23:14 - Physicial Exam PE: 07/22/19 22:50 Pt anxious appearing but speaking in full sentences, comfortable when observed from a distance. rrr s1 s2 no mrg ctab Permacath site in R chest wall appears clean with no appreciable fluctuance or induration, no expressible purulence, no surrounding erythema, and clean gauze. Prior permacath site in L chest wall visible clean, no appreciable flutuance or induration, no expressible purulence, no surrounding erythema or warmth, clean gauze. 07/22/19 23:14 - Medical Decision Making 07/22/19 23:18 Sent from dialysis for tachycardia , fever concern for infection labs blood cx cxr ua/ucx (makes urine) admit
[2019-07-23 00:45] LABS: INR 1.21 (0.83-1.09); PROTHROMBIN TIME (PATIENT) 14.3 SEC (9.7-13.0)
[2019-07-23 00:49] LABS: VENOUS PH 7.39 (7.31-7.41); VENOUS PO2 < 49 mmHg (28-48)
[2019-07-23 00:51] LABS: ALBUMIN 3.3 g/dl (3.4-5.0); BILIRUBIN,TOTAL 0.6 mg/dL (0.2-1); BLOOD UREA NITROGEN 57.9 mg/dL (7-18); CALCIUM 9.4 mg/dL (8.5-10.1); POTASSIUM 5.1 mmol/L (3.5-5.1); TOT PROT 6.4 g/dl (6.4-8.2)
[2019-07-23 00:56] LABS: BASO % 0.5 % (0-2.0); HEMATOCRIT 32.6 % (32.4-45.2); HEMOGLOBIN 10.4 GM/dL (10.7-15.3); LYMPH % 13.8 % (8-40); MCH 28.8 pg (25.7-33.7); MEAN CELL VOLUME 90.2 fl (80-96); MEAN PLT VOLUME 8.7 fl (7.5-11.1); MONO % 9.5 % (3.8-10.2); NEUT % 76.2 % (42.8-82.8); PLATELET COUNT 140 K/MM3 (134-434); RBC 3.62 M/mm3 (3.60-5.2); RDW 15.2 % (11.6-15.6); WHITE BLOOD COUNT 9.8 K/mm3 (4.0-10.0)
[2019-07-23] MEDS ORDERED: VANCOMYCIN HCL 1,500 MG in DEXTROSE 5%-WATER - 500 ML IVPB ONE (02:24)
[2019-07-23] MEDS ORDERED: ACETAMINOPHEN 325 MG TABLET (FP) PO PRN ×2 (03:21→03:29)
[2019-07-23] MEDS ORDERED: oxyCODONE HCL 5 MG TABLET PO PRN (03:29)
--- NOTE | 2019-07-23 03:34 | HP ---
CHIEF COMPLAINT: Tachycardia PCP: HISTORY OF PRESENT ILLNESS: 59 year old female with a past medical history of Anemia, Triple by pass 2005/[place] , ESRD on HD, Acid reflux, HTN, HLD, Anxiety arrived to ED for evaluation of tachycardia and fever. The patient reports that she had a Permacath placed today by Dr. Woody after her fistula clotted. She reports that she became very anxious today while at dialysis heart rate was 138 and her temperature was 100.5, also complains of nausea, received tylenol at the dialysis center. Permacath site in R chest wall appears clean with no appreciable fluctuance or induration, no surrounding erythema, and clean gauze. Prior permacath site in L chest wall visible clean, no erythema or warmth, clean gauze. Patient denies headache, lightheadedness. Denies chills. Denies chest pain, shortness of breath. Denies diarrhea, abdominal pain. Denies vision changes, weakness. ER course was notable for: member noted tachycardia 135, afebrile--> recent permacath placed given Vanco x1 in ED follow up blood, urine culture Recent Travel:no PAST MEDICAL HISTORY: Anemia, Triple by pass 2005/[place], ESRD on HD, Acid reflux, HTN, HLD, Anxiety PAST SURGICAL HISTORY: CABG, Triple by pass 2005, cataract Social History: Smoking:no Alcohol:no Drugs: no Family History: Mother: DM, Father: colon Ca Allergies: amoxicillin Allergy (Verified 07/22/19 22:00) Itching erythromycin base [Erythromycin Base] Allergy (Verified 07/22/19 22:00) Itching BECOMES VERY DIZZY Penicillins Allergy (Verified 07/22/19 22:00) Itching itchy HOME MEDICATIONS: Home Medications Medication Instructions Recorded Metoprolol Succinate [Toprol XL -] 25 mg PO DAILY 04/22/13 Rosuvastatin [Crestor -] 20 mg PO HS 06/16/15 Albuterol Sulfate Inhaler - 2 inh PO PRN PRN 06/06/18 [Ventolin HFA Inhaler -] Cinacalcet HCl [Sensipar] 30 mg PO DAILY 06/06/18 Febuxostat [Uloric] 40 mg PO UTDICT 06/06/18 Calcium Carbonate/Simethicone 1 each PO PRN PRN 07/23/18 [[place] Heartburn+Gas] Oxycodone HCl/Acetaminophen 1 tab PO Q4H PRN #20 tablet MDD 6 07/24/18 [Percocet 5-325 mg Tablet] REVIEW OF SYSTEMS CONSTITUTIONAL: +fever, anxious HEENT: Absent: rhinorrhea, throat pain, mouth swelling, ear pain, eye pain, visual changes CARDIOVASCULAR: + tachycardia Absent: chest pain, syncope,peripheral edema RESPIRATORY: Absent: cough, shortness of breath, dyspnea with exertion, orthopnea, wheezing GASTROINTESTINAL: + Nausea Absent: abdominal pain, abdominal distension, diarrhea, constipation Absent: dysuria, frequency, urgency, hesitancy, hematuria, flank pain, genital pain MUSCULOSKELETAL: Absent: myalgia, arthralgia, joint swelling, back pain, neck pain SKIN: Absent: rash, itching, pallor NEUROLOGIC: Absent: headache, focal weakness or paresthesias, dizziness, unsteady gait, seizure, mental status changes, bladder or bowel incontinence PSYCHIATRIC: + anxious PHYSICAL EXAMINATION Vital Signs - 24 hr 07/22/19 22:00 Temperature 98.3 F Pulse Rate 135 H Respiratory 20 Rate Blood Pressure 147/94 O2 Sat by Pulse 96 Oximetry (%) GENERAL: Awake, alert, NAD LUNGS: Breath sounds equal, clear to auscultation bilaterally. No wheezes Chest/ HEART: Permacath site in R chest wall appears clean; Regular rate and rhythm, normal S1 and S2 without murmur ABDOMEN: Soft, nontender, not distended, normoactive bowel sounds, no guarding, no rebound, no masses MUSCULOSKELETAL: Normal range of motion at all joints. No bony deformities or tenderness. No CVA tenderness. NEUROLOGICAL: Cranial nerves II-XII intact. Normal speech PSYCHIATRIC: Cooperative. Good eye contact SKIN: Warm, dry, normal turgor Laboratory Results - last 24 hr 07/23/19 07/23/19 07/23/19 00:00 00:00 00:00 WBC 9.8 RBC 3.62 Hgb 10.4 L Hct 32.6 MCV 90.2 MCH 28.8 MCHC 32.0 RDW 15.2 Plt Count 140 D MPV 8.7 Absolute Neuts (auto) 7.5 Neutrophils % 76.2 Lymphocytes % 13.8 Monocytes % 9.5 Eosinophils % 0.0 Basophils % 0.5 Nucleated RBC % 0 PT with INR INR PTT (Actin FS) 29.4 VBG pH POC VBG pCO2 POC VBG pO2 VBG HCO3 VBG O2 Sat (Brian) VBG Base Excess Sodium 137 Potassium 5.1 Chloride 102 Carbon Dioxide 23 Anion Gap 12 BUN 57.9 H Creatinine 7.0 H Est GFR (CKD-EPI)AfAm 6.84 Est GFR (CKD-EPI)NonAf 5.90 Random Glucose 95 Lactic Acid Calcium 9.4 Total Bilirubin 0.6 AST 8 L ALT 8 L Alkaline Phosphatase 180 H Total Protein 6.4 Albumin 3.3 L 07/23/19 07/23/19 07/23/19 00:00 00:00 00:00 WBC RBC Hgb Hct MCV MCH MCHC RDW Plt Count MPV Absolute Neuts (auto) Neutrophils % Lymphocytes % Monocytes % Eosinophils % Basophils % Nucleated RBC % PT with INR 14.30 H INR 1.21 H PTT (Actin FS) VBG pH 7.39 POC VBG pCO2 40.0 POC VBG pO2 < 49 H VBG HCO3 23.6 VBG O2 Sat (Brian) 76.8 VBG Base Excess -0.8 Sodium Potassium Chloride Carbon Dioxide Anion Gap BUN Creatinine Est GFR (CKD-EPI)AfAm Est GFR (CKD-EPI)NonAf Random Glucose Lactic Acid 0.8 Calcium Total Bilirubin AST ALT Alkaline Phosphatase Total Protein Albumin ASSESSMENT/PLAN: 59 year old female with a past medical history of Anemia, Triple by pass 2005/ , ESRD on HD, Acid reflux, HTN, HLD, GOUT, Anxiety arrived to ED for evaluation of tachycardia and fever. The patient reports that she had a Permacath placed today by Dr. Woody after her fistula clotted. She reports that she became very anxious today while at dialysis heart rate was 138 and her temperature was 100.5, also complains of nausea, received tylenol at the dialysis center. # Tachycardia # ESRD on HD # s/p right chest permacath placement - follow up nephro in Am - [facility] dialysis [facility] for acute bleeding/ drainage - conitnue with Cinacalcet HCl30 mg PO DAILY - follow up urine, blood cx - tylenol for fever/pain #HTN/HLD - continue wiht Metoprolol Succinate 25 mg PO DAILY - continue with Rosuvastatin 20 mg PO HS - monitor BP closely # Anemia monitor h/h # GOUT - continue with Febuxostat 40 mg PO Problem List - Problem (1) Sinus tachycardia Code(s): R00.0 - TACHYCARDIA, UNSPECIFIED (2) ESRD (end stage renal disease) Code(s): N18.6 - END STAGE RENAL DISEASE (3) Gout Code(s): M10.9 - GOUT, UNSPECIFIED (4) Anemia Code(s): D64.9 - ANEMIA, UNSPECIFIED Qualifiers: Anemia type: due to chronic kidney disease Chronic kidney disease stage: on chronic dialysis Qualified Code(s): N18.6 - End stage renal disease; D63.1 - Anemia in chronic kidney disease; Z99.2 - Dependence on renal dialysis (5) Hyperlipidemia Code(s): E78.5 - HYPERLIPIDEMIA, UNSPECIFIED Qualifiers: Hyperlipidemia type: pure hypercholesterolemia Qualified Code(s): E78.00 - Pure hypercholesterolemia, unspecified; E78.0 - Pure hypercholesterolemia (6) Hypertension Code(s): I10 - ESSENTIAL (PRIMARY) HYPERTENSION Visit type - Emergency Visit Emergency Visit: Yes ED Registration Date: 07/23/19 Care time: The patient presented to the Emergency Department on the above date and was hospitalized for further evaluation of their emergent condition. - New Patient This patient is new to me today: Yes Date on this admission: 07/23/19 - Critical Care Critical Care patient: No
[2019-07-23 06:46] LABS: HEMATOCRIT 28.8 % (32.4-45.2); HEMOGLOBIN 9.4 GM/dL (10.7-15.3); MCH 29.1 pg (25.7-33.7); MCHC 32.7 g/dl (32.0-36.0); MEAN CELL VOLUME 89.2 fl (80-96); MEAN PLT VOLUME 8.6 fl (7.5-11.1); PLATELET COUNT 131 K/MM3 (134-434); RBC 3.23 M/mm3 (3.60-5.2); RDW 15.4 % (11.6-15.6); WHITE BLOOD COUNT 7.9 K/mm3 (4.0-10.0)
[2019-07-23 07:06] LABS: BLOOD UREA NITROGEN 61.9 mg/dL (7-18); POTASSIUM 5.1 mmol/L (3.5-5.1)
[2019-07-23 08:12] LABS: CREATININE 7.4 mg/dL (0.55-1.3)
[2019-07-23] MEDS ORDERED: PT OWN MED DRAWER 7, Y5N ONE (09:11)
[2019-07-23] MEDS: FEBUXOSTAT 40 MG TAB PO SCH (09:34)
[2019-07-23] MEDS: metoPROLOL SUCCINATE 25 MG TAB.SR.24H (FP) PO SCH (09:34)
[2019-07-23] MEDS ORDERED: CINACALCET HCL 30 MG TAB (FP) PO SCH ×2 (10:00→13:50)
--- NOTE | 2019-07-23 10:12 | PN ---
Progress Note (short form) - Note Progress Note: feeling [facility] SOB Vital Signs - 24 hr 07/22/19 07/23/19 22:00 07:21 Temperature 98.3 F 98.2 F Pulse Rate 135 H Pulse Rate [ 112 H Left Radial] Respiratory 20 18 Rate Blood Pressure 147/94 Blood Pressure 126/81 [Right Arm] O2 Sat by Pulse 96 97 Oximetry (%) Current Medications Generic Name Dose Route Start Last Admin Trade Name Freq PRN Reason Stop Dose Admin Acetaminophen 325 mg 07/23/19 03:29 Tylenol - PO 07/26/19 03:28 Q4H PRN PAIN LEVEL 1-5 Acetaminophen 650 mg 07/23/19 03:21 Tylenol - PO Q6H PRN PAIN OR FEVER Cinacalcet 30 mg 07/23/19 10:00 07/23/19 09:34 Sensipar - PO 30 mg DAILY YOHANA Administration Febuxostat 40 mg 07/23/19 10:00 07/23/19 09:34 Uloric - PO Not Given DAILY YOHANA Metoprolol Succinate 25 mg 07/23/19 10:00 07/23/19 09:34 Toprol Xl - PO 25 mg DAILY YOHANA Administration Oxycodone HCl 5 mg 07/23/19 03:29 Roxicodone - PO Q4H PRN PAIN LEVEL 1-5 Rosuvastatin Calcium 20 mg 07/23/19 22:00 Crestor - PO HS YOHANA Laboratory Results - last 24 hr 07/23/19 07/23/19 07/23/19 00:00 00:00 00:00 WBC 9.8 RBC 3.62 Hgb 10.4 L Hct 32.6 MCV 90.2 MCH 28.8 MCHC 32.0 RDW 15.2 Plt Count 140 D MPV 8.7 Absolute Neuts (auto) 7.5 Neutrophils % 76.2 Lymphocytes % 13.8 Monocytes % 9.5 Eosinophils % 0.0 Basophils % 0.5 Nucleated RBC % 0 PT with INR INR PTT (Actin FS) 29.4 VBG pH POC VBG pCO2 POC VBG pO2 VBG HCO3 VBG O2 Sat (Brian) VBG Base Excess Sodium 137 Potassium 5.1 Chloride 102 Carbon Dioxide 23 Anion Gap 12 BUN 57.9 H Creatinine 7.0 H Est GFR (CKD-EPI)AfAm 6.84 Est GFR (CKD-EPI)NonAf 5.90 Random Glucose 95 Lactic Acid Calcium 9.4 Total Bilirubin 0.6 AST 8 L ALT 8 L Alkaline Phosphatase 180 H Troponin I Total Protein 6.4 Albumin 3.3 L 07/23/19 07/23/19 07/23/19 00:00 00:00 00:00 WBC RBC Hgb Hct MCV MCH MCHC RDW Plt Count MPV Absolute Neuts (auto) Neutrophils % Lymphocytes % Monocytes % Eosinophils % Basophils % Nucleated RBC % PT with INR 14.30 H INR 1.21 H PTT (Actin FS) VBG pH 7.39 POC VBG pCO2 40.0 POC VBG pO2 < 49 H VBG HCO3 23.6 VBG O2 Sat (Brian) 76.8 VBG Base Excess -0.8 Sodium Potassium Chloride Carbon Dioxide Anion Gap BUN Creatinine Est GFR (CKD-EPI)AfAm Est GFR (CKD-EPI)NonAf Random Glucose Lactic Acid 0.8 Calcium Total Bilirubin AST ALT Alkaline Phosphatase Troponin I Total Protein Albumin 07/23/19 07/23/19 06:05 06:05 WBC 7.9 RBC 3.23 L Hgb 9.4 L Hct 28.8 L MCV 89.2 MCH 29.1 MCHC 32.7 RDW 15.4 Plt Count 131 L MPV 8.6 Absolute Neuts (auto) Neutrophils % Lymphocytes % Monocytes % Eosinophils % Basophils % Nucleated RBC % PT with INR INR PTT (Actin FS) VBG pH POC VBG pCO2 POC VBG pO2 VBG HCO3 VBG O2 Sat (Brian) VBG Base Excess Sodium 138 Potassium 5.1 Chloride 104 Carbon Dioxide 24 Anion Gap 10 BUN 61.9 H Creatinine 7.4 H* Est GFR (CKD-EPI)AfAm 6.40 Est GFR (CKD-EPI)NonAf 5.52 Random Glucose 107 H Lactic Acid Calcium 9.0 Total Bilirubin AST ALT Alkaline Phosphatase Troponin I 0.03 Total Protein Albumin S1` S2 RRR Lungs clear Abd-soft, NT no edema rt chest wall permcath+-- no signs of infection PLAN Psych eval continue with meds OOB Cardiology eval for tachycardia Renal and vascular eval Problem List - Problems (1) Tachycardia Code(s): R00.0 - TACHYCARDIA, UNSPECIFIED (2) Anemia Code(s): D64.9 - ANEMIA, UNSPECIFIED Qualifiers: Anemia type: due to chronic kidney disease Chronic kidney disease stage: on chronic dialysis Qualified Code(s): N18.6 - End stage renal disease; D63.1 - Anemia in chronic kidney disease; Z99.2 - Dependence on renal dialysis (3) CAD (coronary artery disease) Code(s): I25.10 - ATHSCL HEART DISEASE OF [place] CORONARY ARTERY W/O ANG PCTRS Qualifiers: Coronary Disease-Associated Artery/Lesion type: [place] artery [place] vs. transplanted heart: [place] heart Associated angina: without angina Qualified Code(s): I25.10 - Atherosclerotic heart disease of [place] coronary artery without angina pectoris (4) Dialysis catheter clot or failure Code(s): [id number] - (5) ESRD (end stage renal disease) Code(s): N18.6 - END STAGE RENAL DISEASE
--- NOTE | 2019-07-23 10:55 | EKG ---
Test Reason : Blood Pressure : / mmHG Vent. Rate : 123 BPM Atrial Rate : 123 BPM P-R Int : 150 ms QRS Dur : 088 ms QT Int : 324 ms P-R-T Axes : 022 -26 051 degrees QTc Int : 463 ms SINUS TACHYCARDIA OTHERWISE NORMAL ECG WHEN COMPARED WITH ECG OF 07-JUN-2018 14:32, MINIMAL CRITERIA FOR INFERIOR INFARCT ARE NO LONGER PRESENT Confirmed by AGUEDA ENCINAS, DIOR ([id number] on 07/23/2019 10:54:36 AM Referred By: Confirmed By:DIOR ROMEO MD
[2019-07-23] MEDS ORDERED: SODIUM CHLORIDE 250 ML IV PRN (13:39)
--- NOTE | 2019-07-23 13:39 | CONSULT ---
Consult Consult Specialty:: Nephrology Reason for Consultation:: ESRD - History of Present Illness Chief Complaint: sent in for fever History of Present Illness: Pt is a 59 year old female with pmhx of esrd, cad, anxiety and anemia who was sent in for fever and tachycardia. She had a permacath placed yesterday morning. She went to HD later in the day and was found to be tachycardic. She also had a fever of 100.8. She was sent in for evaluation. She is awake and alert. She denies chills. She says that she feels normal but is anxious. She has blood culutres done for low grad fever in HD that are negative to date. She denies dysuria. She denies cough. She denies shortness of breath. Her access recently clotted and she is on her second permacath in the last week. - History Source History Provided By: Patient, Medical Record - Past Medical History Cardio/Vascular: Yes: CAD, HTN, Hyperlipdemia Pulmonary: Yes: COPD Gastrointestinal: Yes: GERD (on a PPI ) Renal/: Yes: Renal Failure, Renal Inusuff (Nephrotic syndrome as a child, Ischemic nephropathy), Hemodialysis. 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 History of Recent Travel: No Home Medications - Allergies Allergies/Adverse Reactions: Allergies Allergy/AdvReac Type Severity Reaction Status Date / Time amoxicillin Allergy Itching Verified 07/22/19 22:00 erythromycin base Allergy Itching Verified 07/22/19 22:00 [Erythromycin Base] Penicillins Allergy Itching Verified 07/22/19 22:00 - Home Medications Home Medications: Ambulatory Orders Metoprolol Succinate [Toprol XL -] 25 mg PO DAILY 04/22/13 Albuterol Sulfate Inhaler - [Ventolin HFA Inhaler -] 2 inh PO PRN PRN 06/06/18 Cinacalcet HCl [Sensipar] 60 mg PO DAILY 07/12/18 Calcitriol 0.5 mcg PO DAILY 07/23/19 Ketorolac 0.5% Eye Drop 1 drop OP QID 07/23/19 Prednisolone 1% Ophthalmic [Pred Forte 1% -] 1 drop OP BID 07/23/19 Ranitidine [Zantac -] 150 mg PO DAILY 07/23/19 Rosuvastatin Calcium [Crestor] 20 mg PO DAILY 07/23/19 Family Disease History - Family Disease History Family History: Denies Review of Systems - Review of Systems Constitutional: reports: No Symptoms. denies: Chills Eyes: reports: No Symptoms HENT: reports: No Symptoms Neck: reports: No Symptoms Cardiovascular: denies: Chest Pain, Edema, Palpitations, Shortness of Breath Respiratory: reports: No Symptoms. denies: Cough, SOB Gastrointestinal: reports: No Symptoms Genitourinary: reports: No Symptoms Musculoskeletal: reports: No Symptoms Neurological: reports: No Symptoms Endocrine: reports: No Symptoms Psychiatric: reports: Anxiety Physical Exam Vital Signs: Vital Signs Temperature 98.2 F 07/23/19 07:21 Pulse Rate 112 H 07/23/19 07:21 Respiratory Rate 18 07/23/19 07:21 Blood Pressure 126/81 07/23/19 07:21 O2 Sat by Pulse Oximetry (%) 97 07/23/19 11:37 Constitutional: Yes: Calm Eyes: Yes: Conjunctiva Clear HENT: Yes: Atraumatic Neck: Yes: Supple Cardiovascular: Yes: S1, S2 Respiratory: Yes: CTA Bilaterally Gastrointestinal: Yes: Soft Musculoskeletal: Yes: WNL Edema: Yes Edema: LLE: Trace, RLE: Trace Neurological: Yes: Oriented Psychiatric: Yes: Oriented Labs: CBC, BMP 07/23/19 06:05 07/23/19 06:05 Imaging - Results Chest X-ray: Report Reviewed Problem List - Problems (1) Tachycardia Code(s): R00.0 - TACHYCARDIA, UNSPECIFIED (2) ESRD (end stage renal disease) Code(s): N18.6 - END STAGE RENAL DISEASE Assessment/Plan Current Medications Generic Name Dose Route Start Last Admin Trade Name Freq PRN Reason Stop Dose Admin Acetaminophen 325 mg 07/23/19 03:29 Tylenol - PO 07/26/19 03:28 Q4H PRN PAIN LEVEL 1-5 Acetaminophen 650 mg 07/23/19 03:21 Tylenol - PO Q6H PRN PAIN OR FEVER Cinacalcet 30 mg 07/23/19 10:00 07/23/19 09:34 Sensipar - PO 30 mg DAILY YOHANA Administration Febuxostat 40 mg 07/23/19 10:00 07/23/19 09:34 Uloric - PO Not Given DAILY YOHANA Metoprolol Succinate 25 mg 07/23/19 10:00 07/23/19 09:34 Toprol Xl - PO 25 mg DAILY YOHANA Administration Oxycodone HCl 5 mg 07/23/19 03:29 Roxicodone - PO Q4H PRN PAIN LEVEL 1-5 Rosuvastatin Calcium 20 mg 07/23/19 22:00 Crestor - PO HS YOHANA Impression 1. ESRD 2. tachycardia 3. htn 4. cad 5. anxiety 6. tertiary hyperpara 7. fever Plan - HD today - follow cultures - cultures from HD negative - unclear if she has infection - cardiology evaluation for tachycardia - pulse and bp are improved - pt on 60 of sensipar - permacath 3 hrs, 2 k bath, 300 abf, weight 51, no heparin, hectorol 5 mcg
[2019-07-23 14:51] VITALS: BMI 22.0
[2019-07-23] MEDS ORDERED: ROSUVASTATIN CA 20 MG TABLET (FP) PO SCH (22:00)
--- NOTE | 2019-07-24 08:43 | CONSULT ---
Consult - text type - Consultation Consultation Note: Mrs. Atkinson has ESRD on HD. She had a new Permacath placed via right IJV on Sunday and went to dialysis. She was found to be tachycardic and was sent to ER. She remains with a mild tachycardia but other dsouza feels well. She had dialysis yesterday without incident. She has severe anxiety disorder but appears relaxed at this time. The catheter site is clean and dry. EKG shows sinus tachycardia. She will need new AV access creation when medically stable. I will follow in my office.
[2019-07-24] MEDS ORDERED: BACITRACIN 15 GM TUBE TOPICAL OINTMENT TP SCH (10:00)
--- NOTE | 2019-07-24 10:04 | DS ---
Physical Examination Vital Signs: Vital Signs Temperature 98.8 F 07/24/19 06:00 Pulse Rate 116 H 07/24/19 06:00 Respiratory Rate 22 H 07/24/19 06:00 Blood Pressure 120/94 07/24/19 06:00 O2 Sat by Pulse Oximetry (%) 95 07/23/19 21:00 Labs: CBC, BMP 07/23/19 06:05 07/23/19 06:05 Discharge Summary Reason For Visit: TACHYCARDIA Current Active Problems Gout (Acute) Tachycardia (Acute) Condition: Stable - Instructions - Home Medications Comprehensive Discharge Medication List: Ambulatory Orders Metoprolol Succinate [Toprol XL -] 25 mg PO DAILY 04/22/13 Albuterol Sulfate Inhaler - [Ventolin HFA Inhaler -] 2 inh PO PRN PRN 06/06/18 Cinacalcet HCl [Sensipar] 60 mg PO DAILY 06/06/18 Calcitriol 0.5 mcg PO DAILY 07/23/19 Ketorolac 0.5% Eye Drop 1 drop OP QID 07/23/19 Prednisolone 1% Ophthalmic [Pred Forte 1% -] 1 drop OP BID 07/23/19 Ranitidine [Zantac -] 150 mg PO DAILY 07/23/19 Rosuvastatin Calcium [Crestor] 20 mg PO DAILY 07/23/19
[2019-07-24] MEDS ORDERED: clonazePAM 0.5 MG TABLET PO PRN (10:07)
[2019-07-24] MEDS ORDERED: PT OWN MED DRAWER 7, Y5N ONE (10:28)
[2019-07-24] MEDS ORDERED: PANTOPRAZOLE 40 MG TABLET (FP) PO SCH (10:45)
[2019-07-24] MEDS: FEBUXOSTAT 40 MG TAB PO SCH (11:21)
[2019-07-24] MEDS: metoPROLOL SUCCINATE 25 MG TAB.SR.24H (FP) PO SCH (11:21)
--- NOTE | 2019-07-24 12:51 | PN ---
Progress Note, Physician History of Present Illness: Pt seen and examined at bedside. She is much calmer today. She is eager to go home. - Current Medication List Current Medications: Active Medications Acetaminophen (Tylenol -) 325 mg PO Q4H PRN PRN Reason: PAIN LEVEL 1-5 Stop: 07/26/19 03:28 Acetaminophen (Tylenol -) 650 mg PO Q6H PRN PRN Reason: PAIN OR FEVER Bacitracin (Bacitracin -) 1 applic TP DAILY [facility] Last Admin: 07/24/19 11:20 Dose: 1 applic Cinacalcet (Sensipar -) 60 mg PO DAILY [facility] Last Admin: 07/24/19 11:22 Dose: 60 mg Clonazepam (Klonopin -) 0.25 mg PO Q8H PRN PRN Reason: ANXIETY Last Admin: 07/24/19 11:19 Dose: 0.25 mg Febuxostat (Uloric -) 40 mg PO DAILY [facility] Last Admin: 07/24/19 11:21 Dose: Not Given Sodium Chloride (Normal Saline -) 250 mls @ 3,000 mls/hr IV PRN PRN PRN Reason: Hypotension during Dialysis Stop: 07/24/19 13:40 Metoprolol Succinate (Toprol Xl -) 25 mg PO DAILY [facility] Last Admin: 07/24/19 11:21 Dose: 25 mg Oxycodone HCl (Roxicodone -) 5 mg PO Q4H PRN PRN Reason: PAIN LEVEL 1-5 Pantoprazole Sodium (Protonix -) 40 mg PO DAILY [facility] Last Admin: 07/24/19 11:25 Dose: 40 mg Rosuvastatin Calcium (Crestor -) 20 mg PO HS [facility] Last Admin: 07/23/19 22:13 Dose: 20 mg - Objective Vital Signs: Vital Signs Temperature 98.8 F 07/24/19 06:00 Pulse Rate 116 H 07/24/19 06:00 Respiratory Rate 22 H 07/24/19 06:00 Blood Pressure 120/94 07/24/19 06:00 O2 Sat by Pulse Oximetry (%) 95 07/23/19 21:00 Constitutional: Yes: Calm Eyes: Yes: Conjunctiva Clear HENT: Yes: Atraumatic Neck: Yes: Supple Cardiovascular: Yes: S1, S2 Respiratory: Yes: CTA Bilaterally Gastrointestinal: Yes: Soft Genitourinary: Yes: WNL Musculoskeletal: Yes: WNL Edema: No Neurological: Yes: Oriented Psychiatric: Yes: Oriented Labs: CBC, BMP 07/23/19 06:05 07/23/19 06:05 INR, PTT INR 1.21 (0.83-1.09) H 07/23/19 00:00 Problem List - Problems (1) Tachycardia Code(s): R00.0 - TACHYCARDIA, UNSPECIFIED (2) ESRD (end stage renal disease) Code(s): N18.6 - END STAGE RENAL DISEASE Assessment/Plan Current Medications Generic Name Dose Route Start Last Admin Trade Name Freq PRN Reason Stop Dose Admin Acetaminophen 325 mg 07/23/19 03:29 Tylenol - PO 07/26/19 03:28 Q4H PRN PAIN LEVEL 1-5 Acetaminophen 650 mg 07/23/19 03:21 Tylenol - PO Q6H PRN PAIN OR FEVER Bacitracin 1 applic 07/24/19 10:00 07/24/19 11:20 Bacitracin - TP 1 applic DAILY YOHANA Administration Cinacalcet 60 mg 07/23/19 13:50 07/24/19 11:22 Sensipar - PO 60 mg DAILY YOHANA Administration Clonazepam 0.25 mg 07/24/19 10:07 07/24/19 11:19 Klonopin - PO 0.25 mg Q8H PRN Administration ANXIETY Febuxostat 40 mg 07/23/19 10:00 07/24/19 11:21 Uloric - PO Not Given DAILY YOHANA Sodium Chloride 250 mls @ 3,000 mls/hr 07/23/19 13:39 Normal Saline - IV 07/24/19 13:40 PRN PRN Hypotension during Dialysis Metoprolol Succinate 25 mg 07/23/19 10:00 07/24/19 11:21 Toprol Xl - PO 25 mg DAILY YOHANA Administration Oxycodone HCl 5 mg 07/23/19 03:29 Roxicodone - PO Q4H PRN PAIN LEVEL 1-5 Pantoprazole Sodium 40 mg 07/24/19 10:45 07/24/19 11:25 Protonix - PO 40 mg DAILY YOHANA Administration Rosuvastatin Calcium 20 mg 07/23/19 22:00 07/23/19 22:13 Crestor - PO 20 mg HS YOHANA Administration Microbiology 07/23/19 00:00 Blood - Peripheral Venous Blood Culture - Preliminary NO GROWTH OBTAINED AFTER 24 HOURS, INCUBATION TO CONTINUE FOR 4 DAYS. 07/23/19 00:00 Blood - Peripheral Venous Blood Culture - Preliminary NO GROWTH OBTAINED AFTER 24 HOURS, INCUBATION TO CONTINUE FOR 4 DAYS. Impression 1. ESRD 2. tachycardia 3. htn 4. cad 5. anxiety 6. tertiary hyperpara 7. fever Plan - pt tolerated HD yesterday - she does get very anxious at times - vascular input appreciated - cardio input pending - pt does not have fevers or chills, cultures negative so far - permacath 3 hrs, 2 k bath, 300 abf, weight 51, no heparin, hectorol 5 mcg
--- NOTE | 2019-07-24 13:41 | CON.PSY ---
Psychiatry Consult Chief Complaint: 59 Dhara old female wirh ESRD and on Dialysis seen for Psych eval for anxiety frpom chronic medical conditions. Symptoms: reports: Anxiety - Previous Psychiatric Treatment Outpatient: None Inpatient: None - Previous Substance Abuse Treatment Outpatient: None Inpatient: None - Current Medications Current Medications: Active Medications Acetaminophen (Tylenol -) 325 mg PO Q4H PRN PRN Reason: PAIN LEVEL 1-5 Stop: 07/26/19 03:28 Acetaminophen (Tylenol -) 650 mg PO Q6H PRN PRN Reason: PAIN OR FEVER Bacitracin (Bacitracin -) 1 applic TP DAILY [facility] Last Admin: 07/24/19 11:20 Dose: 1 applic Cinacalcet (Sensipar -) 60 mg PO DAILY [facility] Last Admin: 07/24/19 11:22 Dose: 60 mg Clonazepam (Klonopin -) 0.25 mg PO Q8H PRN PRN Reason: ANXIETY Last Admin: 07/24/19 11:19 Dose: 0.25 mg Febuxostat (Uloric -) 40 mg PO DAILY [facility] Last Admin: 07/24/19 11:21 Dose: Not Given Sodium Chloride (Normal Saline -) 250 mls @ 3,000 mls/hr IV PRN PRN PRN Reason: Hypotension during Dialysis Stop: 07/24/19 13:40 Metoprolol Succinate (Toprol Xl -) 25 mg PO DAILY [facility] Last Admin: 07/24/19 11:21 Dose: 25 mg Oxycodone HCl (Roxicodone -) 5 mg PO Q4H PRN PRN Reason: PAIN LEVEL 1-5 Pantoprazole Sodium (Protonix -) 40 mg PO DAILY [facility] Last Admin: 07/24/19 11:25 Dose: 40 mg Rosuvastatin Calcium (Crestor -) 20 mg PO HS [facility] Last Admin: 07/23/19 22:13 Dose: 20 mg - Allergies Allergies: Allergies Allergy/AdvReac Type Severity Reaction Status Date / Time amoxicillin Allergy Itching Verified 07/22/19 22:00 erythromycin base Allergy Itching Verified 07/22/19 22:00 [Erythromycin Base] Penicillins Allergy Itching Verified 07/22/19 22:00 - Current Living Status Usual Living Arrangement: Alone - Current Mental Status Evaluation Appearance: Well Groomed Attitude: Cooperative - Affect Affect: Constrictive Appropriateness: Appropriate to Content - Mood Mood: Anxious - Speech/Language Expressive: Coherent - Psychomotor Activity Psychomotor Activity: Slowed - Thought Process Thought Process: Intact - Thought Content Hallucinations: Absent Delusions: Absent - Self Perception Self Perception: No Impairment - Cognition Attention: Alert Orientation: Time Memory, Immediate Recall: Intact Memory, Short Term: 3/3 Memory, Remote with Promptin/3 - Concentration Serial Sevens Intact: Yes Simple Calculations Intact: Yes - Abstraction Proverb Interpretation: Intact Judgement: Intact - Insight Insight: Intact - Impulse Control Impulse Control: Good Control - Suicidal Ideation Suicidal Ideation: No - Homicidal Ideation Homicidal Ideation: No Assessment/Plan 1) Buspar 10 mg po0 bid for anxiety
[2019-07-24 14:45] VITALS: BP 118/76; PULSE 106; TEMP 97.9
[2019-07-24] MEDS ORDERED: busPIRone HCL 10 MG TABLET (FP) PO SCH (22:00)
== END 2019-07-24 15:12 | disposition home or self-care (01) | DRG 308 ==
LOC: JER 21:50 → JERBED 07-23 02:10 → J4W 07-23 14:14
PROVIDERS: ADMIT Internal Medicine; ATTEND Internal Medicine
PROC: 5A1D70Z Performance of Urinary Filtration, Intermittent, Less than 6 Hours Per Day (ICD-10-PCS; principal; 2019-07-23)
DX: R00.0 Tachycardia, unspecified (principal); N18.6 End stage renal disease; I12.0 Hypertensive chronic kidney disease with stage 5 chronic kidney disease or end stage renal disease; Z99.2 Dependence on renal dialysis; R50.9 Fever, unspecified; F41.9 Anxiety disorder, unspecified; Z88.0 Allergy status to penicillin; D64.9 Anemia, unspecified; I25.2 Old myocardial infarction; E78.5 Hyperlipidemia, unspecified; K21.9 Gastro-esophageal reflux disease without esophagitis; M10.9 Gout, unspecified; I25.10 Atherosclerotic heart disease of native coronary artery without angina pectoris; Z95.1 Presence of aortocoronary bypass graft
CPT/HCPCS: 36415; 71045-TC-FY; 80048; 80053; 82803; 83605; 84484; 85025; 85027; 85610; 85730; 86803; 87040; 87340; 93005; 93010; 99285-25

== ENCOUNTER 2019-09-17 11:28 | Inpatient (IN) | payer OTHER ==
[2019-09-17 13:40] LABS: BASO % 0.9 % (0-2.0); EOS % 0.1 % (0-4.5); HEMATOCRIT 37.3 % (32.4-45.2); HEMOGLOBIN 11.7 GM/dL (10.7-15.3); LYMPH % 5.9 % (8-40); MCHC 31.4 g/dl (32.0-36.0); MEAN CELL VOLUME 92.5 fl (80-96); MEAN PLT VOLUME 7.5 fl (7.5-11.1); MONO % 3.4 % (3.8-10.2); NEUT % 89.7 % (42.8-82.8); PLATELET COUNT 153 K/MM3 (134-434); RBC 4.03 M/mm3 (3.60-5.2); RDW 18.7 % (11.6-15.6); WHITE BLOOD COUNT 12.4 K/mm3 (4.0-10.0)
[2019-09-17 14:41] LABS: ALBUMIN 3.5 g/dl (3.4-5.0); BILIRUBIN,TOTAL 0.5 mg/dL (0.2-1); BLOOD UREA NITROGEN 31.9 mg/dL (7-18); CALCIUM 9.7 mg/dL (8.5-10.1); CREATININE 5.9 mg/dL (0.55-1.3); MAGNESIUM 2.1 mg/dL (1.8-2.4); PHOSPHOROUS 4.5 mg/dL (2.5-4.9); POTASSIUM 5.7 mmol/L (3.5-5.1); TOT PROT 6.4 g/dl (6.4-8.2)
--- NOTE | 2019-09-17 15:14 | EKG ---
Test Reason : Blood Pressure : / mmHG Vent. Rate : 091 BPM Atrial Rate : 091 BPM P-R Int : 166 ms QRS Dur : 092 ms QT Int : 368 ms P-R-T Axes : 034 007 066 degrees QTc Int : 452 ms NORMAL SINUS RHYTHM NORMAL ECG WHEN COMPARED WITH ECG OF 22-JUL-2019 22:43, NO SIGNIFICANT CHANGE WAS FOUND Confirmed by DIOR ROMEO MD ([id number]) on 09/17/2019 3:13:35 PM Referred By: Confirmed By:DIOR ROMEO MD
--- NOTE | 2019-09-17 15:35 | PDOC ---
Documentation entered by Krystal Feliciano SCRIBE, acting as scribe for Terry Sandy MD. Terry Sandy MD: This documentation has been prepared by the Braden louise Sammi, SCRIBE, under my direction and personally reviewed by me in its entirety. I confirm that the documentation accurately reflects all work, treatment, procedures, and medical decision making performed by me. History of Present Illness - General Chief Complaint: Altered Mental Status Stated Complaint: AMS Time Seen by Provider: 09/17/19 12:14 - History of Present Illness Initial Comments: 09/17/19 13:07 The patient is a 59 year old female who presents to the emergency department for evaluation of altered mental status. The patient states she can not recall the events leading to her arrival to the ED. at bedside states he was picking up his from the hair salon and noticed she wasn't responding appropriately. He notes while he was driving the patient was making a grimase, moaning, and urinated on herself. reports he started "pumping her chest " while driving to the local FD where the patient came out of the episode and was transported to the ED. notes mild blood to the patient's mouth during episode. PMH: HTN, high cholesterol, cabg (~12 yrs), nephrosis (dialysis MWF) PCP: Jovanny Gan Nephro: Melissa 09/17/19 15:26 Past History - Past Medical History Allergies/Adverse Reactions: Allergies Allergy/AdvReac Type Severity Reaction Status Date / Time amoxicillin Allergy Itching Verified 07/22/19 22:00 erythromycin base Allergy Itching Verified 07/22/19 22:00 [Erythromycin Base] Penicillins Allergy Itching Verified 07/22/19 22:00 Home Medications: Ambulatory Orders Metoprolol Succinate [Toprol XL -] 25 mg PO DAILY 04/22/13 Albuterol Sulfate Inhaler - [Ventolin HFA Inhaler -] 2 inh PO PRN PRN 06/06/18 Cinacalcet HCl [Sensipar] 60 mg PO DAILY 06/06/18 Calcitriol 0.5 mcg PO DAILY 07/23/19 Ketorolac 0.5% Eye Drop 1 drop OP QID 07/23/19 Prednisolone 1% Ophthalmic [Pred Forte 1% -] 1 drop OP BID 07/23/19 Rosuvastatin Calcium [Crestor] 20 mg PO DAILY 07/23/19 Buspirone HCl [Buspar -] 10 mg PO BID #60 tablet 07/24/19 Pantoprazole Sodium [Protonix -] 40 mg PO DAILY #30 tablet.ec 07/24/19 Anemia: Yes Asthma: No Cancer: No Cardiac Disorders: Yes (TRIPLE BYPASS 2005,[place],CAD) CVA: No COPD: No CHF: No Dementia: No Diabetes: No Dialysis: Yes GI Disorders: Yes (acid reflux) Disorders: Yes (ESRD,HD) HTN: Yes Hypercholesterolemia: Yes Liver Disease: No Psychiatric Problems: Yes (Anxiety) Seizures: No Thyroid Disease: No - Surgical History Abdominal Surgery: No Appendectomy: No Cardiac Surgery: Yes (triple by pass 2005) Cholecystectomy: Yes (CABG) Lung Surgery: No Neurologic Surgery: No Orthopedic Surgery: No - Psycho Social/Smoking Cessation Hx Smoking Status: No Smoking History: Never smoked Have you smoked in the past 12 months: No Number of Cigarettes Smoked Daily: 0 Cigars Per Day: 0 'Breaking Loose' booklet given: 02/14/16 Hx Alcohol Use: No Drug/Substance Use Hx: No Substance Use Type: None Hx Substance Use Treatment: No Review of Systems - Review of Systems Able to Perform ROS?: No (altered mental status) *Physical Exam - Vital Signs Last Vital Signs Temp Pulse Resp BP Pulse Ox 97 F L 83 20 166/100 94 L 09/17/19 11:58 09/17/19 11:58 09/17/19 11:58 09/17/19 11:58 09/17/19 12:00 - Physical Exam Comments: 09/17/19 13:18 CONSTITUTIONAL: Well-appearing; well-nourished; in no apparent distress HEAD: Normocephalic; atraumatic EYES: PERRL; EOM intact ENMT: +mild bruising left tongue +some coagulative blood in the mouth NECK: +right tunnel subclavian catheter. Supple; non-tender; no cervical lymphadenopathy CARD: Normal S1, S2; no murmurs, rubs, or gallops RESP: Normal chest excursion with respiration; breath sounds clear and equal bilaterally; no wheezes, rhonchi, or rales ABD: Soft, non-distended; non-tender; no palpable organomegaly, no palpable hernias EXT: Normal ROM in all four extremities; non-tender to palpation; distal pulses intact SKIN: Warm, dry, no rash NEURO: +bilateral lower extremity drift. Normal speech, cranial nerves II-XII intact, negative pronator drift, 5/5 motor x4, normal sensation to light touch in all 4 extremities, normal cerebellar exam , normal reflexes and tone ED Treatment Course - LABORATORY CBC & Chemistry Diagram: 09/17/19 13:00 09/17/19 13:00 - ADDITIONAL ORDERS Additional order review: Laboratory Results 09/17/19 13:00 Sodium 140 Potassium 5.7 H Chloride 108 H Carbon Dioxide 24 Anion Gap 8 BUN 31.9 H Creatinine 5.9 H Est GFR (CKD-EPI)AfAm 8.41 Est GFR (CKD-EPI)NonAf 7.26 Random Glucose 111 H Calcium 9.7 Phosphorus 4.5 Magnesium 2.1 Total Bilirubin 0.5 AST 20 ALT 12 L Alkaline Phosphatase 152 H Total Protein 6.4 Albumin 3.5 09/17/19 13:00 RBC 4.03 MCV 92.5 MCHC 31.4 L RDW 18.7 H MPV 7.5 D Neutrophils % 89.7 H Lymphocytes % 5.9 L D Monocytes % 3.4 L Eosinophils % 0.1 D Basophils % 0.9 - RADIOLOGY Radiology Studies Ordered: Category Date Time Status HEAD CT WITHOUT CONTRAST [CT] Stat CT Scan 09/17/19 13:07 Completed CHEST X-RAY PORTABLE* [RAD] Stat Radiology 09/17/19 13:07 Completed Medical Decision Making - Medical Decision Making 09/17/19 15:33 Patient is a frail-appearing 59-year-old female with multiple comorbidities who presents with signs and symptoms of a focal complex seizure with loss of bladder control and a postictal period. Upon evaluation, patient was noted to be awake and alert, oriented to self, place, year and month. Deformity of the left pupil is noted consistent with previous cataract surgery. No nystagmus is noted. Several ecchymoses are noted to the left side of the tongue with coagulated blood within the oropharynx. No other focal neurological deficits are identified. CT of head shows no evidence of acute intracranial pathology. EKG reveals hyperacute T waves consistent with potassium of 5.7. Dr. vasquez of renal has been consulted and evaluated the patient. Will admit patient for further evaluation of suspected seizure. Will place on seizure precautions. Discharge - Discharge Information Problems reviewed: Yes Clinical Impression/Diagnosis: Seizure, Hyperkalemia Chronic kidney disease (CKD) Qualifiers: Chronic kidney disease stage: stage 4 (severe) Qualified Code(s): N18.4 - Chronic kidney disease, stage 4 (severe) Condition: Fair - Admission Yes - Follow up/Referral Referrals: Marry Gan MD [Primary Care Provider] - - Patient Discharge Instructions - Post Discharge Activity
[2019-09-17] MEDS ORDERED: SODIUM CHLORIDE 250 ML IV PRN (17:31)
--- NOTE | 2019-09-17 17:33 | CONSULT ---
Consult Consult Specialty:: Nephrology Reason for Consultation:: ESRD - History of Present Illness Chief Complaint: seizure History of Present Illness: Pt is a 59 year old female with pmhx of esrd, htn, hld, cad and anxiety who presents to the ER after having seizure. She said she was very upset yesterday after her meeting with the state department and did not sleep last night. Her also says that she was very worked up since yesterday. She was not responding appropriately in the hair salon when he went to pick her up. In the car she began to make grimaces and urinated on herself. She is now awake and alert. She did bite her tongue. - History Source History Provided By: Patient, Medical Record - Past Medical History Cardio/Vascular: Yes: CAD, HTN, Hyperlipdemia Pulmonary: Yes: COPD Gastrointestinal: Yes: GERD (on a PPI ) Renal/: Yes: Renal Failure, Renal Inusuff (Nephrotic syndrome as a child, Ischemic nephropathy), Hemodialysis ...LMP: 01/07/09 Psych: Yes: Anxiety - Past Surgical History Past Surgical History: Yes: AV Fistula/Graft, CABG - Alcohol/Substance Use Hx Alcohol Use: No History of Substance Use: reports: None - Smoking History Smoking history: Never smoked Have you smoked in the past 12 months: No Aproximately how many cigarettes per day: 0 - Social History Usual Living Arrangement: Alone ADL: Independent 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 History of Recent Travel: No Home Medications - Allergies Allergies/Adverse Reactions: Allergies Allergy/AdvReac Type Severity Reaction Status Date / Time amoxicillin Allergy Itching Verified 07/22/19 22:00 erythromycin base Allergy Itching Verified 07/22/19 22:00 [Erythromycin Base] Penicillins Allergy Itching Verified 07/22/19 22:00 - Home Medications Home Medications: Ambulatory Orders Metoprolol Succinate [Toprol XL -] 25 mg PO DAILY 04/22/13 Albuterol Sulfate Inhaler - [Ventolin HFA Inhaler -] 2 inh PO PRN PRN 06/06/18 Cinacalcet HCl [Sensipar] 60 mg PO DAILY 06/06/18 Calcitriol 0.5 mcg PO DAILY 07/23/19 Ketorolac 0.5% Eye Drop 1 drop OP QID 07/23/19 Prednisolone 1% Ophthalmic [Pred Forte 1% -] 1 drop OP BID 07/23/19 Rosuvastatin Calcium [Crestor] 20 mg PO DAILY 07/23/19 Buspirone HCl [Buspar -] 10 mg PO BID #60 tablet 07/24/19 Pantoprazole Sodium [Protonix -] 40 mg PO DAILY #30 tablet.ec 07/24/19 Family Medical History Family History: Denies Review of Systems - Review of Systems Constitutional: reports: Malaise Eyes: reports: No Symptoms HENT: reports: No Symptoms Neck: reports: No Symptoms Cardiovascular: reports: No Symptoms Respiratory: reports: No Symptoms Gastrointestinal: reports: No Symptoms Genitourinary: reports: No Symptoms Musculoskeletal: reports: No Symptoms Integumentary: reports: No Symptoms Neurological: reports: Seizure Endocrine: reports: No Symptoms Hematology/Lymphatic: reports: No Symptoms Psychiatric: reports: No Symptoms Physical Exam Vital Signs: Vital Signs Temperature 98.2 F 09/17/19 15:02 Pulse Rate 95 H 09/17/19 15:02 Respiratory Rate 20 09/17/19 15:02 Blood Pressure 154/92 09/17/19 15:02 O2 Sat by Pulse Oximetry (%) 98 09/17/19 15:02 Constitutional: Yes: Calm Eyes: Yes: Conjunctiva Clear HENT: Yes: Atraumatic Neck: Yes: Supple Cardiovascular: Yes: S1, S2 Respiratory: Yes: CTA Bilaterally Gastrointestinal: Yes: Soft Renal/: Yes: WNL Musculoskeletal: Yes: WNL Edema: LLE: Trace, RLE: Trace Integumentary: Yes: Tattoos Neurological: Yes: Oriented Psychiatric: Yes: Oriented Labs: CBC, BMP 09/17/19 13:00 09/17/19 13:00 Imaging - Results Chest X-ray: Report Reviewed Cat Scan: Report Reviewed Problem List - Problems (1) Hyperkalemia Code(s): E87.5 - HYPERKALEMIA (2) Seizure Code(s): R56.9 - UNSPECIFIED CONVULSIONS (3) ESRD (end stage renal disease) Code(s): N18.6 - END STAGE RENAL DISEASE Assessment/Plan Current Medications Generic Name Dose Route Start Last Admin Trade Name Freq PRN Reason Stop Dose Admin Sodium Chloride 250 mls @ 3,000 mls/hr 09/17/19 17:31 Normal Saline - IV 09/18/19 17:31 PRN PRN Hypotension during Dialysis Laboratory Tests 09/17/19 13:00 Calcium 9.7 Phosphorus 4.5 Magnesium 2.1 Albumin 3.5 Impression 1. ESRD 2. seizure 3. htn 4. cad 5. anxiety 6. tertiary hyperpara 7. hyperkalemia Plan - will arrange for HD today - will treat potassium with HD - calcium phos and mag are within normal range - saw pt in Er earlier today when she presented - recommend psych follow up as she stopped her anxiety meds - recommend neuro evaluation - permacath 3 hrs, 2 k bath, 300 abf, weight 51, no heparin, hectorol 5 mcg
[2019-09-17] MEDS ORDERED: LORazepam 2 MG/ML SDV VIAL IVPUSH PRN (21:16)
[2019-09-17] MEDS: busPIRone HCL 10 MG TABLET (FP) PO SCH (23:29)
[2019-09-17] MEDS: levETIRAcetam 500 MG TABLET (FP) PO SCH (23:29)
[2019-09-18 08:04] LABS: BASO % 1.3 % (0-2.0); HEMATOCRIT 35.2 % (32.4-45.2); HEMOGLOBIN 11.3 GM/dL (10.7-15.3); LYMPH % 21.3 % (8-40); MCH 28.8 pg (25.7-33.7); MEAN CELL VOLUME 89.9 fl (80-96); MEAN PLT VOLUME 7.7 fl (7.5-11.1); MONO % 8.2 % (3.8-10.2); NEUT % 69.2 % (42.8-82.8); PLATELET COUNT 140 K/MM3 (134-434); RBC 3.91 M/mm3 (3.60-5.2); RDW 18.1 % (11.6-15.6); WHITE BLOOD COUNT 6.5 K/mm3 (4.0-10.0)
[2019-09-18 08:35] VITALS: BMI 20.7
[2019-09-18 08:49] LABS: ALBUMIN 3.3 g/dl (3.4-5.0); BILIRUBIN,TOTAL 0.5 mg/dL (0.2-1); BLOOD UREA NITROGEN 12.9 mg/dL (7-18); CALCIUM 9.5 mg/dL (8.5-10.1); CREATININE 3.3 mg/dL (0.55-1.3); POTASSIUM 3.3 mmol/L (3.5-5.1); TOT PROT 5.7 g/dl (6.4-8.2)
--- NOTE | 2019-09-18 09:09 | CON.NEURO ---
Consult - Past Medical History Cardio/Vascular: Yes: CAD, HTN, Hyperlipdemia Pulmonary: Yes: COPD Gastrointestinal: Yes: GERD (on a PPI ) Renal/: Yes: Renal Failure, Renal Inusuff (Nephrotic syndrome as a child, Ischemic nephropathy), Hemodialysis ...LMP: 01/07/09 Psych: Yes: Anxiety - Past Surgical History Past Surgical History: Yes: AV Fistula/Graft, CABG - Alcohol/Substance Use Hx Alcohol Use: No History of Substance Use: reports: None - Smoking History Smoking history: Never smoked Have you smoked in the past 12 months: No Aproximately how many cigarettes per day: 0 - Social History Usual Living Arrangement: Alone ADL: Independent 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 History of Recent Travel: No Home Medications - Allergies Allergies/Adverse Reactions: Allergies Allergy/AdvReac Type Severity Reaction Status Date / Time amoxicillin Allergy Itching Verified 07/22/19 22:00 erythromycin base Allergy Itching Verified 07/22/19 22:00 [Erythromycin Base] Penicillins Allergy Itching Verified 07/22/19 22:00 - Home Medications Home Medications: Ambulatory Orders Metoprolol Succinate [Toprol XL -] 25 mg PO DAILY 04/22/13 Albuterol Sulfate Inhaler - [Ventolin HFA Inhaler -] 2 inh PO PRN PRN 06/06/18 Cinacalcet HCl [Sensipar] 60 mg PO DAILY 06/06/18 Calcitriol 0.5 mcg PO DAILY 07/23/19 Ketorolac 0.5% Eye Drop 1 drop OP QID 07/23/19 Prednisolone 1% Ophthalmic [Pred Forte 1% -] 1 drop OP BID 07/23/19 Rosuvastatin Calcium [Crestor] 20 mg PO DAILY 07/23/19 Buspirone HCl [Buspar -] 10 mg PO BID #60 tablet 07/24/19 Pantoprazole Sodium [Protonix -] 40 mg PO DAILY #30 tablet.ec 07/24/19 Physical Exam-Neuro Vital Signs: Vital Signs Temperature 97.5 F L 09/18/19 06:00 Pulse Rate 47 L 09/18/19 06:00 Respiratory Rate 18 09/18/19 06:00 Blood Pressure 142/97 09/18/19 06:00 O2 Sat by Pulse Oximetry (%) 100 09/17/19 22:00 Labs: CBC, BMP 09/18/19 06:25 09/18/19 06:25 Assessment/Plan cc New onset seizure HPI 59 year old female came to hospital for Newe onset seizure and tongue bite. Jeff has never had seizure in past. She was on aixiolytic medication and she has generalized tonic clonic seizure with tongue bite. There was no incontinence, his ct head was normal. She do have ESRD and getting HD. She was very upset with something yesterday and did not sleep the night before. PMH: HTN, high cholesterol, cabg (~12 yrs), nephrosis (dialysis MWF) Allergies/Adverse Reactions: Allergies Allergy/AdvReac Type Severity Reaction Status Date / Time amoxicillin Allergy Itching Verified 07/22/19 22:00 erythromycin base Allergy Itching Verified 07/22/19 22:00 [Erythromycin Base] Penicillins Allergy Itching Verified 07/22/19 22:00 Home Medications: Metoprolol Succinate [Toprol XL -] 25 mg PO DAILY 04/22/13 Albuterol Sulfate Inhaler - [Ventolin HFA Inhaler -] 2 inh PO PRN PRN 06/06/18 Cinacalcet HCl [Sensipar] 60 mg PO DAILY 06/06/18 Calcitriol 0.5 mcg PO DAILY 07/23/19 Ketorolac 0.5% Eye Drop 1 drop OP QID 07/23/19 Prednisolone 1% Ophthalmic [Pred Forte 1% -] 1 drop OP BID 07/23/19 Rosuvastatin Calcium [Crestor] 20 mg PO DAILY 07/23/19 Buspirone HCl [Buspar -] 10 mg PO BID #60 tablet 07/24/19 Pantoprazole Sodium [Protonix -] 40 mg PO DAILY #30 tablet.ec 07/24/19 ROS,FH,SH unreamrkable NEUROLOGICAL EXAMINATION Alert oriented x 3 neck is supple and febrile eomi, pupils reactive no face asymmetry, facial sensation is normal moving all ext reflex are generalized diminished sensation is normal gait testing deferred ct head no acute findings Assessment/Plan 59 year old female history of ESRD ,cad,htn,hld. Patient has new onseizure, she was under lot of stress , Seizure seems to be induced and now she is back to baseline. She was loaded with keppra and ct head unremarkable. PLan: She would need mri of brain and eeg, she is claustrophobic , if mri cant be done at hospital . It can be done outpatinet -EEG - Continue tanner for now, and over the intermodal dispatcher, she would not require medication and would be stopped - seizure precautions were discussed, she is not driving Thankign you so much Harsh Szymanski MD
[2019-09-18] MEDS ORDERED: CALCITRIOL 0.25 MCG CAPSULE (FP) PO SCH (10:00)
[2019-09-18] MEDS ORDERED: metoPROLOL SUCCINATE 25 MG TAB.SR.24H (FP) PO SCH (10:00)
[2019-09-18] MEDS ORDERED: CINACALCET HCL 30 MG TAB (FP) PO SCH (10:00)
--- NOTE | 2019-09-18 11:42 | HP ---
Admitting History and Physical - Past Medical History Cardiovascular: Yes: CAD, HTN, Hyperlipdemia Pulmonary: Yes: COPD Gastrointestinal: Yes: GERD (on a PPI ) Renal/: Yes: Renal Failure, Renal Inusuff (Nephrotic syndrome as a child, Ischemic nephropathy), Hemodialysis ...LMP: 01/07/09 Heme/Onc: Yes: Anemia Psych: Yes: Anxiety - Past Surgical History Past Surgical History: Yes: AV Fistula/Graft, CABG - Smoking History Smoking history: Never smoked Have you smoked in the past 12 months: No Aproximately how many cigarettes per day: 0 - Alcohol/Substance Use Hx Alcohol Use: No History of Substance Use: reports: None - Social History ADL: Independent 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 History of Recent Travel: No Home Medications - Allergies Allergies/Adverse Reactions: Allergies Allergy/AdvReac Type Severity Reaction Status Date / Time amoxicillin Allergy Itching Verified 07/22/19 22:00 erythromycin base Allergy Itching Verified 07/22/19 22:00 [Erythromycin Base] Penicillins Allergy Itching Verified 07/22/19 22:00 - Home Medications Home Medications: Ambulatory Orders Metoprolol Succinate [Toprol XL -] 25 mg PO DAILY 04/22/13 Albuterol Sulfate Inhaler - [Ventolin HFA Inhaler -] 2 inh PO PRN PRN 06/06/18 Cinacalcet HCl [Sensipar] 60 mg PO DAILY 06/06/18 Calcitriol 0.5 mcg PO DAILY 07/23/19 Ketorolac 0.5% Eye Drop 1 drop OP QID 07/23/19 Prednisolone 1% Ophthalmic [Pred Forte 1% -] 1 drop OP BID 07/23/19 Rosuvastatin Calcium [Crestor] 20 mg PO DAILY 07/23/19 Buspirone HCl [Buspar -] 10 mg PO BID #60 tablet 07/24/19 Pantoprazole Sodium [Protonix -] 40 mg PO DAILY #30 tablet.ec 07/24/19 Physical Examination Vital Signs: Vital Signs Temperature 97.5 F L 09/18/19 06:00 Pulse Rate 47 L 09/18/19 06:00 Respiratory Rate 18 09/18/19 06:00 Blood Pressure 142/97 09/18/19 06:00 O2 Sat by Pulse Oximetry (%) 100 09/17/19 22:00 Labs: CBC, BMP 09/18/19 06:25 09/18/19 06:25
--- NOTE | 2019-09-18 11:42 | DS ---
Physical Examination Vital Signs: Vital Signs Temperature 97.5 F L 09/18/19 06:00 Pulse Rate 47 L 09/18/19 06:00 Respiratory Rate 18 09/18/19 06:00 Blood Pressure 142/97 09/18/19 06:00 O2 Sat by Pulse Oximetry (%) 100 09/17/19 22:00 Labs: CBC, BMP 09/18/19 06:25 09/18/19 06:25 Discharge Summary Problems reviewed: Yes Reason For Visit: SEIZURE Current Active Problems Chronic kidney disease (CKD) (Acute) Hyperkalemia (Acute) Seizure (Acute) Condition: Fair - Instructions Referrals: Marry Gan MD [Primary Care Provider] - - Home Medications Comprehensive Discharge Medication List: Ambulatory Orders Metoprolol Succinate [Toprol XL -] 25 mg PO DAILY 04/22/13 Albuterol Sulfate Inhaler - [Ventolin HFA Inhaler -] 2 inh PO PRN PRN 06/06/18 Cinacalcet HCl [Sensipar] 60 mg PO DAILY 06/06/18 Calcitriol 0.5 mcg PO DAILY 07/23/19 Ketorolac 0.5% Eye Drop 1 drop OP QID 07/23/19 Prednisolone 1% Ophthalmic [Pred Forte 1% -] 1 drop OP BID 07/23/19 Rosuvastatin Calcium [Crestor] 20 mg PO DAILY 07/23/19 Buspirone HCl [Buspar -] 10 mg PO BID #60 tablet 07/24/19 Pantoprazole Sodium [Protonix -] 40 mg PO DAILY #30 tablet.ec 07/24/19
[2019-09-18] MEDS ORDERED: PT OWN MED DRAWER 7, Y5N ONE (11:55)
[2019-09-18] MEDS: busPIRone HCL 10 MG TABLET (FP) PO SCH ×2 (12:11→12:17)
[2019-09-18] MEDS: levETIRAcetam 500 MG TABLET (FP) PO SCH (12:11)
[2019-09-18 13:21] LABS: INR 1.1 (0.83-1.09)
[2019-09-18 13:23] LABS: ACTIVATED PTT 32.7 SECONDS (25.2-36.5)
[2019-09-18 14:07] VITALS: BP 110/76; PULSE 80; TEMP 97.4
[2019-09-18] MEDS ORDERED: ROSUVASTATIN CA 20 MG TABLET (FP) PO SCH (22:00)
== END 2019-09-18 13:37 | disposition home or self-care (01) | DRG 100 ==
LOC: JER 11:28 → JERBED 15:35 → J5S 21:13
PROVIDERS: ADMIT Internal Medicine; ATTEND Internal Medicine
PROC: 5A1D70Z Performance of Urinary Filtration, Intermittent, Less than 6 Hours Per Day (ICD-10-PCS; principal; 2019-09-17)
DX: R56.9 Unspecified convulsions (principal); N18.6 End stage renal disease; I12.0 Hypertensive chronic kidney disease with stage 5 chronic kidney disease or end stage renal disease; F41.9 Anxiety disorder, unspecified; E78.5 Hyperlipidemia, unspecified; E87.5 Hyperkalemia; I25.10 Atherosclerotic heart disease of native coronary artery without angina pectoris; I25.2 Old myocardial infarction; F40.240 Claustrophobia; D64.9 Anemia, unspecified; K21.9 Gastro-esophageal reflux disease without esophagitis; Z95.1 Presence of aortocoronary bypass graft; J44.9 Chronic obstructive pulmonary disease, unspecified; Z99.2 Dependence on renal dialysis
CPT/HCPCS: 36415; 70450-TC; 71045-TC-FY; 80053; 83735; 84100; 84146; 85025; 85610; 85730; 86803; 87340; 93005; 93010; 95816; 99285-25

== ENCOUNTER 2019-12-03 06:06 | Day surgery (SDC) | payer OTHER ==
[2019-11-27 16:50] VITALS: BMI 21.8
[2019-12-03] MEDS ORDERED: LIDOCAINE HCL 1%, 10 MG/ML (20ML VIAL) ONE (07:27)
[2019-12-03] MEDS ORDERED: HEPARIN NA (PORCINE) 5,000 UNITS/ML 1ML VIAL ONE ×2 (07:27→08:46)
[2019-12-03] MEDS ORDERED: PAPAVERINE HCL 30 MG/1 ML 10 ML VIAL NR ONE (07:27)
--- NOTE | 2019-12-03 07:51 | HP ---
History & Physical Update - History History: No Change - Physical Physical: No Change - Assessment Assessment: No Change - Plan Plan: No Change
[2019-12-03] MEDS ORDERED: LIDOCAINE HCL/PF 2% SDV 5ML VIAL ONE (08:07)
[2019-12-03] MEDS ORDERED: MIDAZOLAM HCL 2 MG/2 ML SINGLE DOSE VIAL ONE (08:07)
[2019-12-03] MEDS ORDERED: PROPOFOL 20 ML ONE (08:07)
[2019-12-03] MEDS ORDERED: THROMBIN (BOVINE) 5,000 UNIT VIAL TP ONE (08:16)
[2019-12-03] MEDS ORDERED: ACETAMINOPHEN 325 MG TABLET (FP) PO PRN (08:18)
[2019-12-03] MEDS ORDERED: oxyCODONE HCL 5 MG TABLET PO PRN (08:18)
[2019-12-03] MEDS ORDERED: ONDANSETRON 4 MG/2 ML VIAL IVPUSH PRN (08:18)
[2019-12-03] MEDS ORDERED: SODIUM CHLORIDE 1,000 ML IV SCH (08:30)
[2019-12-03] MEDS ORDERED: CLINDAMYCIN PHOSPHATE 600 MG/4 ML VIAL IVPB ONE (08:49)
[2019-12-03] MEDS ORDERED: CLINDAMYCIN PHOSPHATE 600 MG/4 ML VIAL ONE (08:49)
[2019-12-03] MEDS ORDERED: LIDOCAINE HCL 1%, 10 MG/ML (20ML VIAL) NR ONE (09:00)
--- NOTE | 2019-12-03 10:47 | OP ---
Operative Note - Note: Operative Date: 12/03/19 Pre-Operative Diagnosis: ESRD on HD Operation: Placement AV graft left arm Findings: Patent axillary artery and vein Implants: 4-7 mm Propaten graft Post-Operative Diagnosis: Same as Pre-op Surgeon: Santos Woody Inspector Water Pollution Control: Marissa Garcia Anesthesiologist/ABSTRACT CHECKER: Snow Cox Anesthesia: Fractional Estimated Blood Loss (mls): 30
[2019-12-03 12:56] VITALS: TEMP 98.2
[2019-12-03 13:06] VITALS: BP 105/70; PULSE 97
--- NOTE | 2019-12-03 13:55 | SURG ---
Surgery Loan Associate Note Loan Associate: Marissa Garcia PA-C Date of Service: 12/03/19 Diagnosis: ESRD on HD Procedure: Placement AV graft left arm I was present for the entirety of the operative procedure. For further detail, please refer to operative report. Visit type - Case Type Case Type: Scheduled - Emergency Emergency Visit: No - New patient This patient is new to me today: Yes Date on this admission: 12/03/19
--- NOTE | 2019-12-03 17:04 | OP ---
DATE OF OPERATION: 12/03/2019 SURGEON: Santos Kelly MD WHEELCHAIR VAN DRIVER: ANATOLY Joseph PROCEDURE: Placement of arteriovenous graft, left arm. PREOPERATIVE DIAGNOSIS: Renal failure. POSTOPERATIVE DIAGNOSIS: Renal failure. ANESTHESIA: Fractional. ANESTHESIOLOGIST: Snow Cox M.D. OPERATIVE FINDINGS: The left axillary vein and artery were patent, with adequate diameter for anastomosis. OPERATIVE PROCEDURE: Following routine patient identification, with site and side verification, intravenous sedation was established. The left arm was prepped with ChloraPrep. A time-out was performed. Lidocaine 1% was infiltrated in the axilla, and a longitudinal incision was made. The subcutaneous tissues were divided using cautery for hemostasis. The axillary vein was identified and mobilized with sharp dissection. Side branches were ligated with ties and divided. The vein was encircled with a vessel loop. The adjacent axillary artery was then mobilized and secured with vessel loops. Side branches were ligated with ties and divided. A curved metal tunneler was then passed along the anterior aspect of the arm, using a counterincision proximal to the elbow crease. A 4-7 mm PTFE graft was passed through the tunneler, with care not to twist it. The tunneler was then placed between the 2 incisions along the medial aspect of the arm and the graft passed back to create a loop configuration. The artery was occluded with a vascular clamp and vessel loop, and opened on exposed surface with a 6-mm arteriotomy. The small end of the graft was beveled and anastomosed to the side of the artery with running suture of 6-0 Prolene. Prior to completion of the suture line the graft was occluded and the artery was allowed to back bleed and flushed. The suture line was completed and the artery was released. Bleeding from the suture line was controlled with Surgicel. The vein was then occluded with a bulldog clamp and vessel loop. A longitudinal venotomy measuring approximately 15 mm was made. The large end of the graft was beveled and anastomosed to the side of the artery with a running suture of 6-0 Prolene. Prior to completion of the suture line, the vein was allowed to back bleed and was flushed with heparin and the graft was allowed to flush. The suture line was completed. Clamps were removed. There was good flow through the graft with a palpable pulse present. Surgicel was applied to control bleeding. When hemostasis was adequate, the wounds were closed with interrupted suture of 3-0 Vicryl on the subcutaneous tissues and skin cornelia. Sterile dressings were applied. The patient was taken to the recovery area in stable condition. SANTOS KELLY M.D. [id number]
== END 2019-12-03 12:30 | disposition home or self-care (01) ==
LOC: JASU-SURG 06:06
PROVIDERS: ATTEND Surgery
PROC: 03150JD Bypass Right Axillary Artery to Upper Arm Vein with Synthetic Substitute, Open Approach (ICD-10-PCS; principal; 2019-12-03 08:00)
DX: I12.0 Hypertensive chronic kidney disease with stage 5 chronic kidney disease or end stage renal disease (principal); N18.6 End stage renal disease; Z99.2 Dependence on renal dialysis
CPT/HCPCS: 36415; 84132; 94760; J1644

== ENCOUNTER 2019-12-19 17:11 | Inpatient (IN) | payer OTHER ==
--- NOTE | 2019-12-19 17:20 | PDOC ---
Rapid Medical Evaluation Time Seen by Provider: 12/19/19 17:14 Medical Evaluation: Allergies Allergy/AdvReac Type Severity Reaction Status Date / Time amoxicillin Allergy Itching Verified 11/27/19 16:31 erythromycin base Allergy Itching Verified 11/27/19 16:31 [Erythromycin Base] Penicillins Allergy Itching Verified 11/27/19 16:31 12/19/19 17:15 Pt c/o: feels anxious, no other complaints Pt on brief exam: anxious appearing, hr 142 Pt ordered for: ekg, labs pt to proceed to the ED 12/19/19 17:19 Discharge Disposition - Diagnosis Anxiety, Tachycardia - Discharge Dispostion Disposition: AGAINST MEDICAL ADVICE Condition at time of disposition: Stable - Referrals - Patient Instructions - Post Discharge Activity
[2019-12-19] MEDS ORDERED: LORazepam 1 MG TABLET PO ONE (18:09)
[2019-12-19] MEDS ORDERED: LORazepam 0.5 MG TABLET ONE (18:13)
--- NOTE | 2019-12-19 18:26 | CONSULT ---
Consult Consult Specialty:: Nephrology Reason for Consultation:: ESRD - History of Present Illness Chief Complaint: tachycardia History of Present Illness: Pt is a 59 year old female with pmhx of esrd, anxiety and anemia who I sent in from HD for tachycardia. She had a pulse in the 130s. She feels very anxious. She did have caffeine. Her pulse was in the 140 range in er. She denies chest pain or shortness of breath. Her last HD was on Sunday. She is awake and alert. Her is at bedside. - History Source History Provided By: Patient - Past Medical History Cardio/Vascular: Yes: CAD, HTN, Hyperlipdemia Pulmonary: Yes: COPD Gastrointestinal: Yes: GERD (on a PPI ) Renal/: Yes: Renal Failure, Renal Inusuff (Nephrotic syndrome as a child, Ischemic nephropathy), Hemodialysis ...LMP: 01/07/09 Psych: Yes: Anxiety - Past Surgical History Past Surgical History: Yes: AV Fistula/Graft, CABG - Alcohol/Substance Use Hx Alcohol Use: No History of Substance Use: reports: None - Smoking History Smoking history: Unknown if ever smoked Have you smoked in the past 12 months: No Aproximately how many cigarettes per day: 0 - Social History Usual Living Arrangement: Alone ADL: Independent 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 History of Recent Travel: No Home Medications - Allergies Allergies/Adverse Reactions: Allergies Allergy/AdvReac Type Severity Reaction Status Date / Time amoxicillin Allergy Itching Verified 12/19/19 17:20 erythromycin base Allergy Itching Verified 12/19/19 17:20 [Erythromycin Base] Penicillins Allergy Itching Verified 12/19/19 17:20 - Home Medications Home Medications: Ambulatory Orders Metoprolol Succinate [Toprol XL -] 25 mg PO DAILY 04/22/13 Albuterol Sulfate Inhaler - [Ventolin HFA Inhaler -] 2 inh PO PRN PRN 06/06/18 Cinacalcet HCl [Sensipar] 60 mg PO DAILY 06/06/18 Prednisolone 1% Ophthalmic [Pred Forte 1% -] 1 drop OP PRN 07/23/19 Rosuvastatin Calcium [Crestor] 20 mg PO DAILY 07/23/19 Pantoprazole Sodium [Protonix -] 40 mg PO DAILY #30 tablet.ec 07/24/19 Oxycodone HCl/Acetaminophen [Percocet 5-325 mg Tablet] 1 tab PO Q8H PRN #12 tablet MDD 3 12/03/19 Family Medical History Family History: Denies Review of Systems - Review of Systems Constitutional: reports: Malaise Eyes: reports: No Symptoms HENT: reports: No Symptoms Neck: reports: No Symptoms Cardiovascular: reports: Palpitations. denies: Shortness of Breath Respiratory: reports: No Symptoms Gastrointestinal: reports: No Symptoms Genitourinary: reports: No Symptoms Musculoskeletal: reports: No Symptoms Integumentary: reports: No Symptoms Neurological: reports: No Symptoms Psychiatric: reports: Anxiety Physical Exam Vital Signs: Vital Signs Temperature 98.2 F 12/19/19 17:15 Pulse Rate 142 H 12/19/19 17:15 Respiratory Rate 24 H 12/19/19 17:15 Blood Pressure 137/86 12/19/19 17:15 O2 Sat by Pulse Oximetry (%) 99 12/19/19 17:15 Constitutional: Yes: Anxious Eyes: Yes: Conjunctiva Clear HENT: Yes: Atraumatic Neck: Yes: Supple Cardiovascular: Yes: S1, S2 Respiratory: Yes: CTA Bilaterally Gastrointestinal: Yes: Soft Renal/: Yes: WNL Extremities: Yes: Other (left arm edema, graft with thrill and bruit) Neurological: Yes: Oriented Psychiatric: Yes: Oriented, Agitated Problem List - Problems (1) Anxiety Code(s): F41.9 - ANXIETY DISORDER, UNSPECIFIED Assessment/Plan Impression 1. ESRD 2. anxiety 3. htn 4. cad 5. anemia 6. tertiary hyperpara Plan - check ecg - check labs - discussed with er - r/o anxiety vs cardiac arrhythmia - pt has HD set up as outpt - permacath 3 hrs, 2 k bath, 300 abf, weight 51, no heparin, hectorol 5 mcg
--- NOTE | 2019-12-19 18:30 | PDOC ---
History of Present Illness - General Chief Complaint: Psychiatric Stated Complaint: SENT BY DOCTOR FOR EKG Time Seen by Provider: 12/19/19 17:14 - History of Present Illness Initial Comments: Jeny Atkinson is a 59yo woman with a PMH of CAD s/p CABG, HTN, HLD, GERD, ESRD on HD (MWF) who presents with anxiety and tachycardia. She reports that she " did something she wasn't supposed to do" and went to [employer] for lunch and had a soda. Afterwards, she started to feel jittery and then anxious. She attempted to go to dialysis in the afternoon, but she was unable to complete her session. She contacted Dr Torres, who told her to present to the ED for additional evaluation. Ms Atkinson denies any chest pain, difficulty breathing, lightheadedness, or papitations. She does endorse feeling nervous. Dr Torres, present in the ED during initial evaluation, reports that the pt has had similar episodes of anxiety/panic in the past. He sent her to the ED to evaluate for arrhythmias. He additionally reports that Ms Atkinson has known swelling in her LUE secondary to stenosis following a recent graft placement. The pt reports that she had an ultrasound completed in Dr Woody's office 3 days after the graft was placed, and she was told that she needs a balloon angioplasty. The procedure is scheduled for next week. According to the pt's , she has had tachycardia along with anxiety for as long as he has known her. He feels that she is very worried about her swollen arm. Past History - Past Medical History Allergies/Adverse Reactions: Allergies Allergy/AdvReac Type Severity Reaction Status Date / Time amoxicillin Allergy Itching Verified 12/19/19 17:20 erythromycin base Allergy Itching Verified 12/19/19 17:20 [Erythromycin Base] Penicillins Allergy Itching Verified 12/19/19 17:20 Home Medications: Ambulatory Orders Metoprolol Succinate [Toprol XL -] 25 mg PO DAILY 04/22/13 Albuterol Sulfate Inhaler - [Ventolin HFA Inhaler -] 2 inh PO TID PRN 06/06/18 Cinacalcet HCl [Sensipar] 60 mg PO DAILY 06/06/18 Prednisolone 1% Ophthalmic [Pred Forte 1% -] 1 drop OP PRN 07/23/19 Rosuvastatin Calcium [Crestor] 20 mg PO DAILY 07/23/19 Pantoprazole Sodium [Protonix -] 40 mg PO DAILY #30 tablet.ec 07/24/19 Oxycodone HCl/Acetaminophen [Percocet 5-325 mg Tablet] 1 tab PO Q8H PRN #12 tablet MDD 3 12/03/19 Anemia: Yes Asthma: No Cancer: No Cardiac Disorders: Yes (TRIPLE BYPASS 2006,[place],CAD) CVA: No COPD: No CHF: No Dementia: No Diabetes: No Dialysis: Yes GI Disorders: Yes (acid reflux) Disorders: Yes (ESRD,HD) HTN: Yes Hypercholesterolemia: Yes Liver Disease: No Psychiatric Problems: Yes (Anxiety) Seizures: Yes (1 episode 10/2019. Neuro, EEG workup negative) Thyroid Disease: No - Surgical History Abdominal Surgery: No Appendectomy: No Cardiac Surgery: Yes (triple by pass 2005) Cholecystectomy: Yes (CABG) Lung Surgery: No Neurologic Surgery: No Orthopedic Surgery: No - Psycho Social/Smoking Cessation Hx Smoking Status: No Smoking History: Unknown if ever smoked Have you smoked in the past 12 months: No Number of Cigarettes Smoked Daily: 0 Cigars Per Day: 0 'Breaking Loose' booklet given: 02/14/16 Hx Alcohol Use: No Drug/Substance Use Hx: No Substance Use Type: None Hx Substance Use Treatment: No Review of Systems - Review of Systems Comments:: General: No fevers, no chills, no weight or appetite change, no malaise HEENT: No changes in vision, no changes in hearing, no congestion, no sore throat CV: No chest pain, no palpitations, no LE edema Pulm: No SOB, no cough, no wheezing GI: No nausea or vomiting, no change in bowel habits, no melena : ESRD on HD Musc: No back pain, no joint swelling, no recent injury Skin: No rash, no lesions, no erythema Endo: No excessive thirst, no heat/cold intolerance Heme: No unusual bruising or bleeding, no swollen glands Neuro: No syncope, no numbness/tingling, no focal weakness Vasc: No claudication. +Recent LUE AVG w/ marked edema Psych: +anxiety *Physical Exam - Vital Signs Last Vital Signs Temp Pulse Resp BP Pulse Ox 98.2 F 142 H 24 H 137/86 99 12/19/19 17:15 12/19/19 17:15 12/19/19 17:15 12/19/19 17:15 12/19/19 17:15 - Physical Exam General: Uncomfortable. In mild distress HEENT: Atraumatic, PERRL, EOMI, MMM, voice normal, normal neck ROM Cards: Tachycardic, regular, no murmur appreciated Pulm: Comfortable on room air, clear to auscultation bilaterally Abd: Soft, nontender, nondistended Ext: Atraumatic. No LE edema. LUE w/ well-healed surgical scar c/w AVG placement. Marked swelling to distal LUE, hand movements intact, sensation intact, nontender. Vasc: Extremities WWP. Palpable radial pulses bilaterally Skin: Normal color, no rashes or lesions Neuro: A&Ox3, CN grossly intact, normal speech, motor/sensory grossly intact and symmetric Psych: Appears anxious ED Treatment Course - LABORATORY CBC & Chemistry Diagram: 12/19/19 18:55 12/19/19 18:55 Medical Decision Making - Medical Decision Making 12/19/19 18:15 Jeny Atkinson is a 59yo woman with a PMH of CAD s/p CABG, HTN, HLD, GERD, ESRD on HD (MWF) who was sent to the ED by Dr Torres with anxiety and tachycardia. She reportedly has had similar episodes secondary to anxiety in the past. Today , she had a soda, which has previously lead to the anxiety episodes. - EKG completed. Sinus tachycardia w/ HR 137, normal intervals. No concerning ST changes - PO ativan for anxiety - CBC, CMP, trop to evaluate for end-organ effects or electrolyte abnormalities causing tachycarda. Pt agrees to allow labs once she feels calmer - LUE swelling likely secondary to recent AVG placement. Per pt and Dr Torres , has been evaluated by vascular surgery. Unlikely to be related as swelling has been present and unchanged since the graft placement. 12/19/19 19:56 - Labs notable for hgb 8.1. Per the pt, it was 10.6 on 12/12/19. She denies any bleeding. Also notable for leukocytosis to 13. - HR now 120 following 2mg ativan PO. Still feels slightly anxious - Call placed to Dr Torres to discuss lab results 12/19/19 20:26 - On additional discussion with Ms Atkinson, she states that she had declined the recommended dose of erythropoeitin for the past two weeks because she was afraid it was going to be "too much for [her] body." She was only accepting half the prescribed dose. She states that following labs today at the dialysis center with hgb in the 8's, she agreed to the full dose in the future. - Requesting to be d/c home. Advised to wait until conversation w/ regular doctors 12/19/19 21:05 - Continued tachycardia to 130. Pt is asymptomatic - Advised that pt be admitted to the hospital for observation as no cause of continued tachycardia has been identified. - Discussed w/ Dr Torres. Reports that pt always has persistent tachcyardia w / anxiety attacks. However, agrees that pt should be admitted for additional evaluation of HR. Reports that pt's Hgb has been slowly decreasing over several weeks; recommending trending in the morning. Can get blood products tomorrow if needed. Will order dialysis. 12/19/19 21:46 - Pt reluctant to be admitted but agrees after discussion w/ Dr Salomon and pt's . - CXR ordered for admission - Duplex LUE. Pt had prior w/ Dr Woody, but results not available. - Sign out given to EDE Jay. Will admit to telemetry for additional management and workup 12/19/19 23:09 - Pt requesting something to help her sleep. D/w Melba Jay. 5mg melatonin ordered - Duplex US completed, to be followed by primary team. Discussed with Dr Umm Cortez PGY2 Discharge - Discharge Information Problems reviewed: Yes Clinical Impression/Diagnosis: Anxiety, Tachycardia Condition: Stable - Admission Yes - Follow up/Referral - Patient Discharge Instructions - Post Discharge Activity
[2019-12-19 19:11] LABS: BASO % 0.8 % (0-2.0); HEMATOCRIT 25.8 % (32.4-45.2); HEMOGLOBIN 8.1 GM/dL (10.7-15.3); LYMPH % 11.5 % (8-40); MCHC 31.2 g/dl (32.0-36.0); MONO % 6.5 % (3.8-10.2); NEUT % 81.2 % (42.8-82.8); PLATELET COUNT 208 K/MM3 (134-434); RBC 2.78 M/mm3 (3.60-5.2); WHITE BLOOD COUNT 11.8 K/mm3 (4.0-10.0)
[2019-12-19 19:41] LABS: ALBUMIN 2.8 g/dl (3.4-5.0); BILIRUBIN,TOTAL 0.2 mg/dL (0.2-1); BLOOD UREA NITROGEN 50.8 mg/dL (7-18); CALCIUM 9.4 mg/dL (8.5-10.1); CREATININE 5.9 mg/dL (0.55-1.3); POTASSIUM 4.2 mmol/L (3.5-5.1); TOT PROT 5.6 g/dl (6.4-8.2)
--- NOTE | 2019-12-19 19:46 | PDOC ---
Attending Attestation - Resident Resident Name: Sarah Cortez - ED Attending Attestation I have performed the following: I have examined & evaluated the patient, The case was reviewed & discussed with the resident, I agree w/resident's findings & plan - HPI HPI: 12/19/19 21:19 Pt comes with SOB, tachycardia, swollen left arm, coarse BS at the left base ESRD and AV graft procedure x 2 in bilat arms and a shiley in the past couple weeks, all with unfavorable outcomes. She is going back to vascular surg this Thurs. Pt has a hx of anxiety. Pt has elevated heart rate regularly. - Physicial Exam PE: 12/19/19 21:21 Agree with resident exam Afebrile Left arm is swollen; last week normal DVT study. We will repeat it, as a 2nd study within a week takes the sensitivity of the test up to the 90s% range Left lower lobe coarse BS Pt has severe kyphosis Pt has swollen lower extremities. A+Ox3 - Medical Decision Making 12/19/19 23:23 Pt's HB/HCT dropped 2 points in 2 days. She is tachy. Denies red or black stools Pt has no chest pain. 12/20/19 19:51 Pt will be admitted
[2019-12-19] MEDS ORDERED: morphine CARPU-JECT 2 MG/1 ML DISP.SYRIN IVPUSH ONE (21:22)
--- NOTE | 2019-12-19 21:38 | HP ---
Admitting History and Physical - Admission History of Present Illness: This is a 59 y/o woman with a PMHx of CAD s/p CABG, HTN, HLD, GERD, ESRD on HD ( MWF). Who presents to the ED with anxiety and tachycardia. She reports that she "did something she wasn't supposed to do" and went to [employer] for lunch and had a soda. Afterwards, she started to feel jittery and then anxious. She attempted to go to dialysis in the afternoon, but she was unable to complete her session. She contacted Dr Torres, who told her to come to the ED for for additional evaluation. Patient reports feeling anxious. Patient denies any chest pain, SOB, lightheadedness, or palpitations. Denies fever, chills, cough, ALVAREZ, dizziness, AP, N/V/D. Her is at bedside, reports that she gets this way after consuming caffeine. he reports that she has been drinking soda all week. History Source: Patient, Family Member Limitations to Obtaining History: Clinical Condition - Past Medical History Cardiovascular: Yes: CAD, HTN, Hyperlipdemia Pulmonary: Yes: COPD Gastrointestinal: Yes: GERD (on a PPI ) Renal/: Yes: Renal Failure, Renal Inusuff (Nephrotic syndrome as a child, Ischemic nephropathy), Hemodialysis ...LMP: 01/07/09 Heme/Onc: Yes: Anemia Psych: Yes: Anxiety - Past Surgical History Past Surgical History: Yes: AV Fistula/Graft, CABG - Smoking History Smoking history: Unknown if ever smoked Have you smoked in the past 12 months: No Aproximately how many cigarettes per day: 0 - Alcohol/Substance Use Hx Alcohol Use: No History of Substance Use: reports: None - Social History ADL: Independent 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 [employer] History of Recent Travel: No Home Medications - Allergies Allergies/Adverse Reactions: Allergies Allergy/AdvReac Type Severity Reaction Status Date / Time amoxicillin Allergy Itching Verified 12/19/19 17:20 erythromycin base Allergy Itching Verified 12/19/19 17:20 [Erythromycin Base] Penicillins Allergy Itching Verified 12/19/19 17:20 - Home Medications Home Medications: Ambulatory Orders Metoprolol Succinate [Toprol XL -] 25 mg PO DAILY 04/22/13 Albuterol Sulfate Inhaler - [Ventolin HFA Inhaler -] 2 inh PO TID PRN 06/06/18 Cinacalcet HCl [Sensipar] 60 mg PO DAILY 06/06/18 Prednisolone 1% Ophthalmic [Pred Forte 1% -] 1 drop OP PRN 07/23/19 Rosuvastatin Calcium [Crestor] 20 mg PO DAILY 07/23/19 Pantoprazole Sodium [Protonix -] 40 mg PO DAILY #30 tablet.ec 07/24/19 Oxycodone HCl/Acetaminophen [Percocet 5-325 mg Tablet] 1 tab PO Q8H PRN #12 tablet MDD 3 12/03/19 Family Medical History Family History: Unable to Obtain Review of Systems - Review of Systems Constitutional: reports: No Symptoms Eyes: reports: No Symptoms HENT: reports: No Symptoms Neck: reports: No Symptoms Cardiovascular: reports: Palpitations Respiratory: reports: No Symptoms Gastrointestinal: reports: No Symptoms Genitourinary: reports: No Symptoms Breasts: reports: No Symptoms Reported Musculoskeletal: reports: No Symptoms Integumentary: reports: No Symptoms Neurological: reports: No Symptoms Endocrine: reports: No Symptoms Hematology/Lymphatic: reports: No Symptoms Psychiatric: reports: Anxiety Pain Intensity: 0 Physical Examination Vital Signs: Vital Signs Temperature 98.2 F 12/19/19 17:15 Pulse Rate 128 H 12/19/19 19:50 Respiratory Rate 24 H 12/19/19 17:15 Blood Pressure 137/86 12/19/19 17:15 O2 Sat by Pulse Oximetry (%) 99 12/19/19 17:15 Constitutional: Yes: Well Nourished, Anxious Eyes: Yes: Conjunctiva Clear, EOM Intact, PERRL HENT: Yes: WNL, Atraumatic, Normocephalic Neck: Yes: WNL, Supple, Trachea Midline Cardiovascular: Yes: Tachycardia, S1, S2, Other (Permacath RCW) Respiratory: Yes: WNL, Regular, CTA Bilaterally Gastrointestinal: Yes: WNL, Normal Bowel Sounds, Soft ...Rectal Exam: Yes: Deferred Breast(s): Yes: WNL Musculoskeletal: Yes: WNL Extremities: Yes: WNL Edema: Yes (Face, L- arm, L- hand) Peripheral Pulses WNL: Yes Integumentary: Yes: WNL Neurological: Yes: Alert, Oriented, Cran Nerves II-XII Intact ...Motor Strength: WNL Psychiatric: Yes: WNL, Alert, Oriented Labs: CBC, BMP 12/19/19 18:55 12/19/19 18:55 Laboratory Results - last 24 hr 12/19/19 12/19/19 12/19/19 18:55 18:55 18:55 WBC 11.8 H RBC 2.78 L Hgb 8.1 L Hct 25.8 L D MCV 93.0 MCH 29.0 MCHC 31.2 L RDW 17.0 H Plt Count 208 D MPV 8.0 Absolute Neuts (auto) 9.6 H Neutrophils % 81.2 Lymphocytes % 11.5 D Monocytes % 6.5 Eosinophils % 0.0 Basophils % 0.8 Nucleated RBC % 0 Sodium 141 Potassium 4.2 Chloride 106 Carbon Dioxide 24 Anion Gap 12 BUN 50.8 H Creatinine 5.9 H Est GFR (CKD-EPI)AfAm 8.41 Est GFR (CKD-EPI)NonAf 7.26 Random Glucose 113 H Calcium 9.4 Total Bilirubin 0.2 AST 6 L ALT 9 L Alkaline Phosphatase 79 Creatine Kinase 21 L Troponin I < 0.02 Total Protein 5.6 L Albumin 2.8 L 12/20/19 00:00 WBC RBC Hgb Hct MCV MCH MCHC RDW Plt Count MPV Absolute Neuts (auto) Neutrophils % Lymphocytes % Monocytes % Eosinophils % Basophils % Nucleated RBC % Sodium Potassium Chloride Carbon Dioxide Anion Gap BUN Creatinine Est GFR (CKD-EPI)AfAm Est GFR (CKD-EPI)NonAf Random Glucose Calcium Total Bilirubin AST ALT Alkaline Phosphatase Creatine Kinase Troponin I 0.02 Total Protein Albumin Intake & Output 12/17/19 12/18/19 12/19/19 12/20/19 23:59 23:59 23:59 23:59 Weight 64.864 kg 51.936 kg Current Medications Generic Name Dose Route Start Last Admin Trade Name Freq PRN Reason Stop Dose Admin Epoetin Eulalio 4,000 unit 12/20/19 18:26 Epogen - IVPUSH 12/20/19 18:27 ONCE ONE Sodium Chloride 250 mls @ 3,000 mls/hr 12/19/19 18:26 Normal Saline - IV 12/20/19 18:26 PRN PRN Hypotension during Dialysis Melatonin 5 mg 12/19/19 22:58 12/19/19 23:55 Melatonin PO 5 mg HS PRN Administration INSOMNIA Imaging - Results Chest X-ray: Pending EKG: Image Reviewed Problem List - Problems (1) Tachycardia Assessment/Plan: Likely due to arrhythmia vs anxiety vs PE Wells Score 1.5- low probability for PE PERC 2 EKG reviewed -sinus tachycardia, septal infarct age undetermined, change compared to prior study of nsr Cardiac monitoring Serial enzymes, neg x1 will trend Appreciate Cardiology consult vascular duplex of LUE r/o dvt- report pending TSH in am Monitor CBC, BMP Code(s): R00.0 - TACHYCARDIA, UNSPECIFIED (2) ESRD (end stage renal disease) Assessment/Plan: HD- M,W,F Nephrology following HD Management Monitor BMP Avoid Nephrotoxic Drugs Code(s): N18.6 - END STAGE RENAL DISEASE (3) Anxiety Assessment/Plan: Likely secondary to Caffeine Ativan given in ED, some improvement Consider Psychological eval Consider starting Paxil Ativan prn Code(s): F41.9 - ANXIETY DISORDER, UNSPECIFIED (4) Hyperkalemia Assessment/Plan: Likely secondary to ESRD with missed dialysis EKG reviewed no peaked Ts Monitor BMP Code(s): E87.5 - HYPERKALEMIA (5) Anemia in chronic kidney disease Assessment/Plan: stable At baseline Will transfuse if HGB < 7.0 Monitor CBC Code(s): N18.9 - CHRONIC KIDNEY DISEASE, UNSPECIFIED; D63.1 - ANEMIA IN CHRONIC KIDNEY DISEASE (6) CAD (coronary artery disease) Assessment/Plan: Continue home meds EKG reviewed Code(s): I25.10 - ATHSCL HEART DISEASE OF [place] CORONARY ARTERY W/O ANG PCTRS Qualifiers: Coronary Disease-Associated Artery/Lesion type: [place] artery [place] vs. transplanted heart: [place] heart Associated angina: without angina Qualified Code(s): I25.10 - Atherosclerotic heart disease of [place] coronary artery without angina pectoris (7) Hyperlipidemia Assessment/Plan: stable Continue home med Monitor LFTs Code(s): E78.5 - HYPERLIPIDEMIA, UNSPECIFIED Qualifiers: Hyperlipidemia type: pure hypercholesterolemia Qualified Code(s): E78.00 - Pure hypercholesterolemia, unspecified; E78.0 - Pure hypercholesterolemia (8) Hypertension Assessment/Plan: stable Monitor BP Continue home meds Code(s): I10 - ESSENTIAL (PRIMARY) HYPERTENSION Assessment/Plan This is a 59 y/o woman admitted for tachycardia for further evaluation of their emergent condition. Plan: See Problem List FEN Fluid Restriction Replete lytes prn NPO DVT ppx OOB SCDs Hold Xarelto- pending OR Dispo: Requires Inpatient Care Visit type - Emergency Visit Emergency Visit: Yes ED Registration Date: 12/19/19 Care time: The patient presented to the Emergency Department on the above date and was hospitalized for further evaluation of their emergent condition. - New Patient This patient is new to me today: Yes Date on this admission: 12/19/19 - Critical Care Critical Care patient: No
[2019-12-19] MEDS ORDERED: MELATONIN 5 MG TABLETS PO PRN (22:58)
[2019-12-19] MEDS ORDERED: MELATONIN 5 MG TABLETS ONE (23:21)
[2019-12-19] MEDS ORDERED: MORPHINE SULFATE 2 MG/ML VIAL ONE (23:42)
[2019-12-20 03:53] VITALS: BMI 25.7
[2019-12-20 08:03] LABS: BASO % 1.2 % (0-2.0); HEMATOCRIT 22.8 % (32.4-45.2); HEMOGLOBIN 7.5 GM/dL (10.7-15.3); MCHC 32.6 g/dl (32.0-36.0); MEAN PLT VOLUME 7.9 fl (7.5-11.1); MONO % 7.6 % (3.8-10.2); NEUT % 76.2 % (42.8-82.8); PLATELET COUNT 209 K/MM3 (134-434); RBC 2.48 M/mm3 (3.60-5.2); RDW 17.1 % (11.6-15.6)
[2019-12-20 09:10] LABS: BLOOD UREA NITROGEN 56.5 mg/dL (7-18); CALCIUM 9.9 mg/dL (8.5-10.1); CREATININE 6.4 mg/dL (0.55-1.3); MAGNESIUM 1.9 mg/dL (1.8-2.4); PHOSPHOROUS 6.2 mg/dL (2.5-4.9); POTASSIUM 4.4 mmol/L (3.5-5.1)
--- NOTE | 2019-12-20 10:17 | CON.CARD ---
Consult Consult Specialty:: Cardiology Referred by:: Marry Gan MD Reason for Consultation:: Tachycardia - History of Present Illness Chief Complaint: Tachycardia History of Present Illness: 59 year old woman with PMhx of ESRD on HD secondary to chronic reflux nephropathy, hx of nephrotic syndrome as a child, CAD s/p CABG, Hypertension, Chronic Anemia initially referred to hospital for anxiety and tachycardia after drinking caffeinated beverage. No clinical sxs suggestive of pulmonary embolism , but always extremely anxious and reports baseline HR 105-110 at rest, not on ASA due to significant reflux. She denies chest pain, dyspnea, palpitations, near or true syncope, orthopnea, PND or LE edema, reports medication compliance. - History Source History Provided By: Patient Limitations to Obtaining History: No Limitations - Past Medical History Cardio/Vascular: Yes: CAD, HTN, Hyperlipdemia Pulmonary: Yes: COPD Gastrointestinal: Yes: GERD (on a PPI ) Renal/: Yes: Renal Failure, Renal Inusuff (Nephrotic syndrome as a child, Ischemic nephropathy), Hemodialysis ...LMP: 01/07/09 ...: No Psych: Yes: Anxiety - Past Surgical History Past Surgical History: Yes: AV Fistula/Graft, CABG - Alcohol/Substance Use Hx Alcohol Use: No History of Substance Use: reports: None - Smoking History Smoking history: Unknown if ever smoked Have you smoked in the past 12 months: No Aproximately how many cigarettes per day: 0 - Social History Usual Living Arrangement: Alone ADL: Independent 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 Travel: No Home Medications - Allergies Allergies/Adverse Reactions: Allergies Allergy/AdvReac Type Severity Reaction Status Date / Time amoxicillin Allergy Itching Verified 12/19/19 17:20 erythromycin base Allergy Itching Verified 12/19/19 17:20 [Erythromycin Base] Penicillins Allergy Itching Verified 12/19/19 17:20 - Home Medications Home Medications: Ambulatory Orders Metoprolol Succinate [Toprol XL -] 25 mg PO DAILY 04/22/13 Albuterol Sulfate Inhaler - [Ventolin HFA Inhaler -] 2 inh PO TID PRN 06/06/18 Cinacalcet HCl [Sensipar] 60 mg PO DAILY 06/06/18 Prednisolone 1% Ophthalmic [Pred Forte 1% -] 1 drop OP PRN 07/23/19 Rosuvastatin Calcium [Crestor] 20 mg PO DAILY 07/23/19 Pantoprazole Sodium [Protonix -] 40 mg PO DAILY #30 tablet.ec 07/24/19 Oxycodone HCl/Acetaminophen [Percocet 5-325 mg Tablet] 1 tab PO Q8H PRN #12 tablet MDD 3 12/03/19 Review of Systems - Review of Systems Psychiatric: reports: Anxiety Vital Signs: Vital Signs Temperature 97.9 F 12/20/19 09:00 Pulse Rate 113 H 12/20/19 09:00 Respiratory Rate 12/20/19 09:00 Blood Pressure 112/72 12/20/19 09:00 O2 Sat by Pulse Oximetry (%) 97 12/20/19 09:00 Constitutional: Yes: No Distress, Calm, Thin Neck: Yes: Supple Respiratory: Yes: Regular, CTA Bilaterally Gastrointestinal: Yes: Normal Bowel Sounds, Soft Cardiovascular: Yes: Tachycardia JVD: No Carotid Bruit: No Heart Sounds: Yes: S1, S2 Edema: No - Other Data Labs, Other Data: CBC, BMP 12/20/19 05:54 12/20/19 05:54 Troponin, BNP 12/19/19 12/20/19 12/20/19 18:55 00:00 05:54 Troponin I < 0.02 0.02 0.02 Troponin, BNP 12/19/19 12/20/19 12/20/19 18:55 00:00 05:54 Troponin I < 0.[address] @ 137 Ejection Fraction %: LVEF > or = 40 % Problem List - Problems (1) Anxiety Code(s): F41.9 - ANXIETY DISORDER, UNSPECIFIED (2) Anemia in chronic kidney disease Code(s): N18.9 - CHRONIC KIDNEY DISEASE, UNSPECIFIED; D63.1 - ANEMIA IN CHRONIC KIDNEY DISEASE (3) CAD (coronary artery disease) Code(s): I25.10 - ATHSCL HEART DISEASE OF [place] CORONARY ARTERY W/O ANG PCTRS Qualifiers: Coronary Disease-Associated Artery/Lesion type: [place] artery [place] vs. transplanted heart: [place] heart Associated angina: without angina Qualified Code(s): I25.10 - Atherosclerotic heart disease of [place] coronary artery without angina pectoris (4) ESRD (end stage renal disease) Code(s): N18.6 - END STAGE RENAL DISEASE (5) Hyperlipidemia Code(s): E78.5 - HYPERLIPIDEMIA, UNSPECIFIED Qualifiers: Hyperlipidemia type: pure hypercholesterolemia Qualified Code(s): E78.00 - Pure hypercholesterolemia, unspecified; E78.0 - Pure hypercholesterolemia (6) S/P CABG (coronary artery bypass graft) Code(s): Z95.1 - PRESENCE OF AORTOCORONARY BYPASS GRAFT (7) Sinus tachycardia Code(s): R00.0 - TACHYCARDIA, UNSPECIFIED Assessment/Plan 1. Sinus tachycardia referable to anxiety, caffeine and post-HD volume shifts, do not suspect PE 2. ESRD->HD TTHS 3. CAD s/p CABG, angina pectoris 4. Anemia of CKD 5. Hyperlipidemia 6. GERD worsened by ASA P:1. Resume Toprol XL 25 qAM dosing, hesitant for dose uptitration now 2. Resume Crestor 20 qhs, does not tolerate ASA due to severe reflux for which she is on Protonix 3. HD MWF per renal 4. Patient should f/u with Dr. Parrish as outpatient 5. Thank you for consultative opportunity
[2019-12-20] MEDS ORDERED: metoPROLOL SUCCINATE 25 MG TAB.SR.24H (FP) PO SCH (10:45)
--- NOTE | 2019-12-20 10:52 | EKG ---
Test Reason : Blood Pressure : / mmHG Vent. Rate : 137 BPM Atrial Rate : 137 BPM P-R Int : 132 ms QRS Dur : 078 ms QT Int : 298 ms P-R-T Axes : 001 005 044 degrees QTc Int : 449 ms SINUS TACHYCARDIA NONSPECIFIC ST ABNORMALITY ABNORMAL ECG Confirmed by SISSY SINGLETON MD ([id number]) on 12/20/2019 10:52:00 AM Referred By: Confirmed By:SISSY SINGLETON MD
--- NOTE | 2019-12-20 11:27 | CONSULT ---
Consult - text type - Consultation Consultation Note: 59 year old woman ESRD on HD. She is 2 weeks s/p placement AV graft left arm. She developed swelling in arm post-op which has not improved. She is scheduled for a venogram to look for central vein disease on . Currently admitted for tachycardia. No new problems with arm Left arm and hand edema 3+. no erythema. No drainage from stapled wounds. Rec: Arm elevation.
--- NOTE | 2019-12-20 11:40 | PN ---
Progress Note, Physician History of Present Illness: Pt seen/ examined in tele chart is reviewed anxious - Current Medication List Current Medications: Active Medications Epoetin Eulalio (Epogen -) 5,000 unit IVPUSH ONCE ONE Stop: 12/20/19 18:27 Sodium Chloride (Normal Saline -) 250 mls @ 3,000 mls/hr IV PRN PRN PRN Reason: Hypotension during Dialysis Stop: 12/20/19 18:26 Melatonin (Melatonin) 5 mg PO HS PRN PRN Reason: INSOMNIA Last Admin: 12/19/19 23:55 Dose: 5 mg Metoprolol Succinate (Toprol Xl -) 25 mg PO DAILY YOHANA Rosuvastatin Calcium (Crestor -) 20 mg PO HS YOHANA - Objective Vital Signs: Vital Signs Temperature 97.9 F 12/20/19 09:00 Pulse Rate 113 H 12/20/19 09:00 Respiratory Rate 20 12/20/19 09:00 Blood Pressure 112/72 12/20/19 09:00 O2 Sat by Pulse Oximetry (%) 97 12/20/19 09:00 Constitutional: Yes: No Distress, Anxious Eyes: Yes: Conjunctiva Clear Neck: Yes: Supple Cardiovascular: Yes: Regular Rate and Rhythm Respiratory: Yes: CTA Bilaterally Gastrointestinal: Yes: Soft Edema: Yes Edema: LUE: 3+ Neurological: Yes: Alert Labs: CBC, BMP 12/20/19 05:54 12/20/19 05:54 - ....Imaging Chest X-ray: Report Reviewed Problem List - Problems (1) Anxiety Code(s): F41.9 - ANXIETY DISORDER, UNSPECIFIED (2) Tachycardia Code(s): R00.0 - TACHYCARDIA, UNSPECIFIED (3) Anemia in chronic kidney disease Code(s): N18.9 - CHRONIC KIDNEY DISEASE, UNSPECIFIED; D63.1 - ANEMIA IN CHRONIC KIDNEY DISEASE (4) CAD (coronary artery disease) Code(s): I25.10 - ATHSCL HEART DISEASE OF [place] CORONARY ARTERY W/O ANG PCTRS Qualifiers: Coronary Disease-Associated Artery/Lesion type: [place] artery [place] vs. transplanted heart: [place] heart Associated angina: without angina Qualified Code(s): I25.10 - Atherosclerotic heart disease of [place] coronary artery without angina pectoris (5) ESRD (end stage renal disease) Code(s): N18.6 - END STAGE RENAL DISEASE (6) S/P CABG (coronary artery bypass graft) Code(s): Z95.1 - PRESENCE OF AORTOCORONARY BYPASS GRAFT Assessment/Plan Discussed with pt Discussed about compliance Advised to stay calm Dont want any meds for anxiety all consults noted monitor will follow d/w Rn also
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
[2019-12-20] MEDS ORDERED: SODIUM CHLORIDE 250 ML IV PRN (15:08)
[2019-12-20] MEDS ORDERED: EPOETIN ALFA 3,000 UNIT, EPOETIN ALFA 2,000 UNIT IVPUSH ONE (16:00)
[2019-12-20] MEDS ORDERED: EPOETIN ALFA 2,000 UNIT/1 ML VIAL IVPUSH ONE ×2 (18:26)
[2019-12-20 20:11] VITALS: BP 132/62; PULSE 130; TEMP 98.7
[2019-12-20] MEDS ORDERED: ROSUVASTATIN CA 20 MG TABLET (FP) PO SCH (22:00)
--- NOTE | 2019-12-21 11:03 | HOSP ---
Subjective - Review of Symptoms Events since last encounter: Hospitalist Encounter Notified by the RN, that the patient is requesting to sign out AMA. Was asked to assess. Arrived to bedside, patient is awake, alert and oriented, her is at bedside. Patient denies palpitations, CP, SOB. attempted to convince patient to stay, unsuccessful. Risks and dangers explained to patient she and her verbalized understanding. VS taken by the RN. Patient left with her via w/c. Physical Examination Vital Signs: Vital Signs Temperature 98.7 F 12/20/19 19:40 Pulse Rate 130 H 12/20/19 19:40 Respiratory Rate 12/20/19 19:40 Blood Pressure 132/62 12/20/19 19:40 O2 Sat by Pulse Oximetry (%) 97 12/20/19 20:00 Constitutional: Yes: No Distress, Calm Eyes: Yes: WNL, Conjunctiva Clear, EOM Intact, PERRL HENT: Yes: WNL, Atraumatic, Normocephalic Neck: Yes: WNL, Supple, Trachea Midline Cardiovascular: Yes: Tachycardia, S1, S2 Respiratory: Yes: WNL, Regular, CTA Bilaterally Gastrointestinal: Yes: WNL, Normal Bowel Sounds, Soft Renal/: Yes: WNL Breast(s): Yes: WNL Musculoskeletal: Yes: WNL Edema: No Peripheral Pulses WNL: Yes Neurological: Yes: WNL, Alert, Oriented, Cran Nerves II-XII Intact ...Motor Strength: WNL Psychiatric: Yes: WNL, Alert, Oriented Labs: CBC, BMP 12/20/19 05:54 12/20/19 05:54
== END 2019-12-20 21:20 | disposition left against medical advice (07) | DRG 308 ==
LOC: JER 17:11 → JERBED 21:34 → J4W 12-20 01:01
PROVIDERS: ADMIT Internal Medicine; ATTEND Internal Medicine
DX: R00.0 Tachycardia, unspecified (principal); N18.6 End stage renal disease; I12.0 Hypertensive chronic kidney disease with stage 5 chronic kidney disease or end stage renal disease; F41.9 Anxiety disorder, unspecified; I25.10 Atherosclerotic heart disease of native coronary artery without angina pectoris; Z95.1 Presence of aortocoronary bypass graft; K21.9 Gastro-esophageal reflux disease without esophagitis; I10 Essential (primary) hypertension; E78.5 Hyperlipidemia, unspecified; Z99.2 Dependence on renal dialysis; Z88.0 Allergy status to penicillin; M40.209 Unspecified kyphosis, site unspecified; E87.5 Hyperkalemia; D63.1 Anemia in chronic kidney disease
CPT/HCPCS: 36415; 36430; 36511; 71045-TC-FY; 80048; 80053; 82550; 83735; 84100; 84443; 84484; 85025; 86803; 86850; 86900; 86901; 86922; 87340; 93005; 93010; 99285-25; J0885; P9038; P9058

== ENCOUNTER 2019-12-29 11:48 | Emergency (ER) | payer OTHER ==
[2019-12-29] MEDS ORDERED: ALBUTEROL SO4 2.5/IPRATROPIUM 0.5 INH SOL 3 ML VIAL.NEB. NEB ONE ×2 (12:08→16:15)
[2019-12-29 12:48] VITALS: BMI 22.4
--- NOTE | 2019-12-29 14:03 | PDOC ---
History of Present Illness - General Chief Complaint: Psychiatric Stated Complaint: DIFFICULTY BREATHING Time Seen by Provider: 12/29/19 12:51 - History of Present Illness Initial Comments: 12/29/19 13:23 HPI: 59 y/o CAD s/p CABG, HTN, HLD, GERD, ESRD on HD MWF with a recent LUE ?clotted graft requiring intervention, anxiety presenting with panic attack. She reports she is currently taking a Zpack for a respiratory infection with significant wheezing, however, her wheezing makes her SOB and occasionally makes her anxious. She also reports worsening edema of her LUE since a procedure that was performed by Dr Garcia 5 days ago. She says looking at her arm and hearing her wheezes makes her anxious and if she cant calm down then she'll go into a panic attack. She states that her SOB and anxiety hsa improved since ED arrival. She denied any ALVAREZ, LH, chest pain, abd pain, n/v, diaphoresis. She also has HD today this afternoon. PMHx: as noted above ROS: as noted SHx: Denies tobacco use; no alcohol use; no rec drugs Allergies: NKDA ROS: GENERAL/CONSTITUTIONAL: No fever or chills. No weakness. HEAD, EYES, EARS, NOSE AND THROAT: No change in vision. No ear pain or discharge. No sore throat. CARDIOVASCULAR: No chest pain; +shortness of breath RESPIRATORY: +cough, wheezing; no hemoptysis. GASTROINTESTINAL: No nausea, vomiting, diarrhea or constipation. GENITOURINARY: No dysuria, frequency, or change in urination. MUSCULOSKELETAL: No joint or muscle swelling or pain. No neck or back pain. SKIN: No rash NEUROLOGIC: No headache, vertigo, loss of consciousness, or change in strength/ sensation. ENDOCRINE: No increased thirst. No abnormal weight change HEMATOLOGIC/LYMPHATIC: No anemia, easy bleeding, or history of blood clots. ALLERGIC/IMMUNOLOGIC: No hives or skin allergy. PE: GENERAL: Awake, alert, and fully oriented, no acute distress HEAD: No signs of trauma, normocephalic, atraumatic EYES: EOMI, sclera anicteric, conjunctiva clear ENT: Auricles normal inspection, hearing grossly normal, nares patent, oropharynx clear without exudates. Moist mucosa NECK: Normal ROM, no lymphadenopathy LUNGS: No increased work of breathing, symmetrical chest rise, scattered wheezing and rhonchi throughout all lung elizalde HEART: tachycardic, regular rhythm, normal S1 and S2, no murmur, peripheral pulses 2+ and equal bilaterally. 1+ BL pitting edema ABDOMEN: Soft, nondistended, nontender, normoactive bowel sounds. No guarding, no rebound. No masses. No CVAT MUSCULOSKELETAL: FROM, LUE: 2+ pitting edema with erythema on medial proximal portion around a suture site without ttp NEUROLOGICAL: Cranial nerves II through XII grossly intact. Normal speech, normal gait, no focal sensorimotor deficits SKIN: Warm, Dry, normal turgor, no rashes or lesions noted Past History - Past Medical History Allergies/Adverse Reactions: Allergies Allergy/AdvReac Type Severity Reaction Status Date / Time amoxicillin Allergy Itching Verified 12/19/19 17:20 erythromycin base Allergy Itching Verified 12/19/19 17:20 [Erythromycin Base] Penicillins Allergy Itching Verified 12/19/19 17:20 Home Medications: Ambulatory Orders Metoprolol Succinate [Toprol XL -] 25 mg PO DAILY 04/22/13 Albuterol Sulfate Inhaler - [Ventolin HFA Inhaler -] 2 inh PO TID PRN 06/06/18 Cinacalcet HCl [Sensipar] 60 mg PO DAILY 06/06/18 Prednisolone 1% Ophthalmic [Pred Forte 1% -] 1 drop OP PRN 07/23/19 Rosuvastatin Calcium [Crestor] 20 mg PO DAILY 07/23/19 Pantoprazole Sodium [Protonix -] 40 mg PO DAILY #30 tablet.ec 07/24/19 Oxycodone HCl/Acetaminophen [Percocet 5-325 mg Tablet] 1 tab PO Q8H PRN #12 tablet MDD 3 12/03/19 Anemia: Yes Asthma: No Cancer: No Cardiac Disorders: Yes (TRIPLE BYPASS 2006,[place],CAD) CVA: No COPD: No CHF: No Dementia: No Diabetes: No Dialysis: Yes GI Disorders: Yes (acid reflux) Disorders: Yes (ESRD,HD) HTN: Yes Hypercholesterolemia: Yes Liver Disease: No Psychiatric Problems: Yes (Anxiety) Seizures: Yes (1 episode 10/2019. Neuro, EEG workup negative) Thyroid Disease: No - Surgical History Abdominal Surgery: No Appendectomy: No Cardiac Surgery: Yes (triple by pass 2005) Cholecystectomy: Yes (CABG) Lung Surgery: No Neurologic Surgery: No Orthopedic Surgery: No - Psycho Social/Smoking Cessation Hx Smoking Status: No Smoking History: Former smoker Have you smoked in the past 12 months: No Number of Cigarettes Smoked Daily: 0 Cigars Per Day: 0 Information on smoking cessation initiated: No 'Breaking Loose' booklet given: 02/14/16 Hx Alcohol Use: No Drug/Substance Use Hx: No Substance Use Type: None Hx Substance Use Treatment: No *Physical Exam - Vital Signs Last Vital Signs Temp Pulse Resp BP Pulse Ox 98.2 F 110 H 20 118/72 99 12/29/19 12:43 12/29/19 12:43 12/29/19 12:43 12/29/19 12:43 12/29/19 12:43 ED Treatment Course - LABORATORY CBC & Chemistry Diagram: 12/29/19 13:45 12/29/19 13:45 - RADIOLOGY Radiology Studies Ordered: Category Date Time Status CHEST PA & LAT [RAD] Stat Radiology 12/29/19 13:20 Ordered DUPLEX ART. UPPER COMPL US [US] Stat Ultrasound 12/29/19 13:20 Ordered DUPLEX VASCUL US-1 ARM [US] Stat Ultrasound 12/29/19 13:20 Ordered Medical Decision Making - Medical Decision Making 12/29/19 14:03 59 y/o CAD s/p CABG, HTN, HLD, GERD, ESRD on HD MWF with a recent LUE ?clotted graft requiring intervention, anxiety presenting with panic attack in the setting of significantly edematous LUE and SOB/wheezing from current LRI. HR 110 , BP 118/72, AF. PE with scattered wheezing and rhonchi as well as 2+ edema of LUE with bruit present, no thrill, erythema on proximal medial portion of arm. -cbc, cmp, coags, cardiac prof, ekg, cxr, LUE aa/vv US 12/29/19 16:49 bnp 11,000 remainder labs wnl discussed with Dr Torres regarding LUE; patient refusing HD today and admission attempted to contact Dr carlson, but patient still refusing admission will AMA and recommend nebs treatment and HD tomorrow Discharge - Discharge Information Problems reviewed: Yes Clinical Impression/Diagnosis: ESRD (end stage renal disease), Panic attack, Wheezing, Arm edema Condition: Fair Disposition: AGAINST MEDICAL ADVICE - Follow up/Referral Referrals: Vanessa Torres MD [Primary Care Provider] - - Patient Discharge Instructions - Post Discharge Activity
[2019-12-29 14:32] LABS: BASO % 0.7 % (0-2.0); HEMATOCRIT 30.2 % (32.4-45.2); HEMOGLOBIN 9.6 GM/dL (10.7-15.3); LYMPH % 11.2 % (8-40); MCH 29.6 pg (25.7-33.7); MCHC 31.7 g/dl (32.0-36.0); MEAN CELL VOLUME 93.2 fl (80-96); MEAN PLT VOLUME 8.2 fl (7.5-11.1); NEUT % 82.1 % (42.8-82.8); PLATELET COUNT 176 K/MM3 (134-434); RBC 3.24 M/mm3 (3.60-5.2); RDW 17.2 % (11.6-15.6); WHITE BLOOD COUNT 8.6 K/mm3 (4.0-10.0)
[2019-12-29 14:52] LABS: INR 1.08 (0.83-1.09); PROTHROMBIN TIME (PATIENT) 12.7 SEC (9.7-13.0)
[2019-12-29 14:56] LABS: ALBUMIN 2.9 g/dl (3.4-5.0); BILIRUBIN,TOTAL 0.2 mg/dL (0.2-1); BLOOD UREA NITROGEN 39.1 mg/dL (7-18); CALCIUM 8.1 mg/dL (8.5-10.1); CREATININE 6.2 mg/dL (0.55-1.3); MAGNESIUM 1.9 mg/dL (1.8-2.4); POTASSIUM 3.9 mmol/L (3.5-5.1)
[2019-12-29 16:00] LABS: N-TERMINAL BNP 11037.3 pg/ml (5-125)
--- NOTE | 2019-12-29 16:07 | PDOC ---
Documentation entered by Naomi Godfrey SCRIBE, acting as scribe for Neeru Freitas MD. Neeru Freitas MD: This documentation has been prepared by the Bekah louise Nirvannie, SCRIBE, under my direction and personally reviewed by me in its entirety. I confirm that the documentation accurately reflects all work, treatment, procedures, and medical decision making performed by me. Attending Attestation - Resident Resident Name: TomMarianne - ED Attending Attestation I have performed the following: I have examined & evaluated the patient, The case was reviewed & discussed with the resident, I agree w/resident's findings & plan, Exceptions are as noted - HPI HPI: 12/29/19 14:48 The patient is a 59 year old female, with a significant past medical history of CAD (s/p CABG), HTN, HLD, GERD, ESRD (on HD MWF with a recent LUE ?clotted graft requiring intervention), anxiety, who presents to the emergency department with 5 days of worsening LUE edema after a procedure by Dr. Woody. Patient also notes she is currently taking a Z-pack for wheezing and a respiratory infection. She notes whenever she wheezes she becomes increasingly anxious, prompting her arrival to the ED. She denies recent dysuria, frequency, urgency or hematuria. Allergies: PCN, Amoxicillin, erythromycin bases. - Physicial Exam PE: 12/29/19 15:37 GENERAL: +Mildly anxious. Awake, alert, and fully oriented, in no acute distress HEAD: No signs of trauma +LUNGS: Speaking in 3-4 word sentences. Diffuse wheezing. Scattered rhonchi HEART: Regular rate and rhythm, normal S1 and S2, no murmurs, rubs or gallops ABDOMEN: Soft, nontender, normoactive bowel sounds. No guarding, no rebound. No masses +BACK: dowager's hump. - Medical Decision Making 01/03/20 07:40 Pt presents to the ED complaining of shortness of breath. + diffuse rhonchi on exam. XRay is consistent with congestion. Also has worsening upper extremity swelling. Will admit to medicine for continued management.
[2019-12-29 18:43] VITALS: BP 112/70; PULSE 102; TEMP 98.1
--- NOTE | 2019-12-29 19:47 | CONSULT ---
Consult Consult Specialty:: Nephrology Reason for Consultation:: ESRD - History of Present Illness Chief Complaint: panic attack History of Present Illness: Pt is a 59 year old female with pmhx of esrd, htn, hld, gerd, anxiety, cabg who presents with anxiety. She says she was getting into the car to go have lunch when she began to feel anxious and then could not breath. She is on a z-pack for resp infection. She currently says she feels better and is asking to go home. She denies shortness of breath. She does not want to get HD today and wants to reschedule till tomorrow. - History Source History Provided By: Patient, Family Member - Past Medical History Cardio/Vascular: Yes: CAD, HTN, Hyperlipdemia Pulmonary: Yes: COPD Gastrointestinal: Yes: GERD (on a PPI ) Renal/: Yes: Renal Failure, Renal Inusuff (Nephrotic syndrome as a child, Ischemic nephropathy), Hemodialysis ...LMP: 01/07/09 Psych: Yes: Anxiety - Past Surgical History Past Surgical History: Yes: AV Fistula/Graft, CABG - Alcohol/Substance Use Hx Alcohol Use: No History of Substance Use: reports: None - Smoking History Smoking history: Former smoker Have you smoked in the past 12 months: No Aproximately how many cigarettes per day: 0 - Social History Usual Living Arrangement: Alone ADL: Independent 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 History of Recent Travel: No Home Medications - Allergies Allergies/Adverse Reactions: Allergies Allergy/AdvReac Type Severity Reaction Status Date / Time amoxicillin Allergy Itching Verified 12/19/19 17:20 erythromycin base Allergy Itching Verified 12/19/19 17:20 [Erythromycin Base] Penicillins Allergy Itching Verified 12/19/19 17:20 - Home Medications Home Medications: Ambulatory Orders Metoprolol Succinate [Toprol XL -] 25 mg PO DAILY 04/22/13 Albuterol Sulfate Inhaler - [Ventolin HFA Inhaler -] 2 inh PO TID PRN 06/06/18 Cinacalcet HCl [Sensipar] 60 mg PO DAILY 06/06/18 Prednisolone 1% Ophthalmic [Pred Forte 1% -] 1 drop OP PRN 07/23/19 Rosuvastatin Calcium [Crestor] 20 mg PO DAILY 07/23/19 Pantoprazole Sodium [Protonix -] 40 mg PO DAILY #30 tablet.ec 07/24/19 Oxycodone HCl/Acetaminophen [Percocet 5-325 mg Tablet] 1 tab PO Q8H PRN #12 tablet MDD 3 12/03/19 Albuterol 0.083% Nebulizer Adalgisa [Ventolin 0.083% Nebulizer Soln -] 1 neb NEB Q8H #9 vial 12/29/19 levoFLOXacin [Levaquin] 750 mg PO Q2D #4 tab 12/29/19 Family Medical History Family History: Denies Review of Systems - Review of Systems Constitutional: reports: Malaise Eyes: reports: No Symptoms HENT: reports: No Symptoms Neck: reports: No Symptoms Cardiovascular: reports: No Symptoms Respiratory: reports: SOB Gastrointestinal: reports: No Symptoms Genitourinary: reports: No Symptoms Musculoskeletal: reports: Other (left arm edema) Neurological: reports: No Symptoms Psychiatric: reports: Anxiety, Panic Physical Exam Vital Signs: Vital Signs Temperature 98.1 F 12/29/19 17:00 Pulse Rate 102 H 12/29/19 17:00 Respiratory Rate 18 12/29/19 17:00 Blood Pressure 112/70 12/29/19 17:00 O2 Sat by Pulse Oximetry (%) 98 12/29/19 17:00 Constitutional: Yes: Calm Eyes: Yes: Conjunctiva Clear HENT: Yes: Atraumatic Neck: Yes: Supple Cardiovascular: Yes: S1, S2 Respiratory: Yes: Wheezes Gastrointestinal: Yes: Soft Renal/: Yes: WNL Musculoskeletal: Yes: Other (left arm edema) Edema: Yes Edema: LUE: 2+ Neurological: Yes: Oriented Psychiatric: Yes: Oriented, Agitated Labs: CBC, BMP 12/29/19 13:45 12/29/19 13:45 Imaging - Results Chest X-ray: Report Reviewed Problem List - Problems (1) Anxiety Code(s): F41.9 - ANXIETY DISORDER, UNSPECIFIED (2) ESRD (end stage renal disease) Code(s): N18.6 - END STAGE RENAL DISEASE Assessment/Plan Impression 1. ESRD 2. anxiety 3. htn 4. cad 5. anemia 6. tertiary hyperpara Plan - HD in am if she agrees to stay - av graft patent on ultrasound - graft with thrill and bruit - pt has vascular procedure on Sunday - discussed with ER - permacath 3 hrs, 2 k bath, 300 abf, weight 51, no heparin, hectorol 5 mcg
--- NOTE | 2019-12-30 09:28 | EKG ---
Test Reason : Blood Pressure : / mmHG Vent. Rate : 108 BPM Atrial Rate : 108 BPM P-R Int : 148 ms QRS Dur : 082 ms QT Int : 358 ms P-R-T Axes : 007 -08 022 degrees QTc Int : 479 ms SINUS TACHYCARDIA LOW VOLTAGE QRS BORDERLINE ECG WHEN COMPARED WITH ECG OF 19-DEC-2019 17:23, CRITERIA FOR SEPTAL INFARCT ARE NO LONGER PRESENT NONSPECIFIC T WAVE ABNORMALITY NO LONGER EVIDENT IN LATERAL LEADS Confirmed by Killian Salter MD ([id number]) on 12/30/2019 9:27:21 AM Referred By: Confirmed By:Killian Salter MD
== END 2019-12-29 18:00 | disposition left against medical advice (07) ==
LOC: JER 11:48
PROC: 3E0F7GC Introduction of Other Therapeutic Substance into Respiratory Tract, Via Natural or Artificial Opening (ICD-10-PCS; principal; 2019-12-29)
DX: F41.0 Panic disorder [episodic paroxysmal anxiety] (principal); I13.11 Hypertensive heart and chronic kidney disease without heart failure, with stage 5 chronic kidney disease, or end stage renal disease; N18.6 End stage renal disease; N17.8 Other acute kidney failure; Z99.2 Dependence on renal dialysis; Z95.1 Presence of aortocoronary bypass graft; I25.2 Old myocardial infarction; D64.9 Anemia, unspecified; E78.00 Pure hypercholesterolemia, unspecified; K21.9 Gastro-esophageal reflux disease without esophagitis; Z87.891 Personal history of nicotine dependence
CPT/HCPCS: 36415; 71045-TC-FY; 80053; 82550; 83735; 83880; 84484; 85025; 85610; 85730; 93005; 93010; 93930; 94640; 99284-25

== ENCOUNTER 2019-12-31 06:09 | Day surgery (SDC) | payer OTHER ==
[2019-12-30 17:42] VITALS: BMI 25.7
--- NOTE | 2019-12-31 08:22 | HP ---
History & Physical Update - History Currently as noted:: Left arm swelling from AV graft and central vein occlusion. - Physical Currently as noted:: Wheezing - Assessment Currently as noted:: Venous hypertension with arm sweling - Plan Currently as noted:: Ligation AV graft today. Schedule HeRo when respiratory status improves.
[2019-12-31] MEDS ORDERED: LIDOCAINE HCL 1%, 10 MG/ML (50 mL VIAL) INF ONE ×2 (08:45)
--- NOTE | 2019-12-31 09:37 | OP ---
Operative Note - Note: Operative Date: 12/31/19 Pre-Operative Diagnosis: Left arm swelling Operation: Ligation left arm AV graft Post-Operative Diagnosis: Same as Pre-op Surgeon: Santos Woody Anesthesiologist/CABLE ARMORER OPERATOR: Snow Cox Anesthesia: Fractional Estimated Blood Loss (mls): 50
[2019-12-31] MEDS ORDERED: oxyCODONE HCL 5 MG TABLET PO PRN (09:39)
[2019-12-31] MEDS ORDERED: ONDANSETRON 4 MG/2 ML VIAL IVPUSH PRN (09:39)
[2019-12-31] MEDS ORDERED: SODIUM CHLORIDE 1,000 ML IV SCH (09:45)
[2019-12-31] MEDS ORDERED: ACETAMINOPHEN INJECTION 100 ML IVPB ONE (10:08)
[2019-12-31] MEDS ORDERED: ACETAMINOPHEN 1000 MG/100 ML VIAL (NON FORMULARY) IVPB ONE (10:10)
[2019-12-31 11:33] VITALS: TEMP 98
[2019-12-31 12:35] VITALS: BP 112/75; PULSE 90
--- NOTE | 2019-12-31 13:12 | OP ---
DATE OF OPERATION: 12/31/2019 SURGEON: Santos Kelly MD PROCEDURE: Ligation of arteriovenous graft, left arm. PREOPERATIVE DIAGNOSIS: Left arm swelling. POSTOPERATIVE DIAGNOSIS: Left arm swelling. ANESTHESIA: Fractional. ANESTHESIOLOGIST: Snow Cox MD OPERATIVE FINDINGS: This patient with an AV graft in the left upper extremity developed severe swelling, post-implantation, and was found to have occlusion of her central vein. Plan for a HeRO graft was aborted, due to the patient's upper respiratory infection. Ligation of the graft was performed, instead. OPERATIVE PROCEDURE: Following routine patient identification with site and side verification, intravenous sedation was established. The left arm was prepped with ChloraPrep. A timeout was performed. Lidocaine 1% was infiltrated over the AV graft in the proximal left upper arm. A skin incision was made and carried into subcutaneous plane using cautery for hemostasis. The graft was then clamped and divided. Both ends were overseen with running sutures of 6-0 Prolene. The wound was closed with a running suture of 3-0 nylon. A sterile dressing and Donovan wrap was applied and the patient was taken to recovery in stable condition. SANTOS KELLY M.D. [id number]
== END 2019-12-31 11:55 | disposition home or self-care (01) ==
LOC: JASU-SURG 06:09
PROVIDERS: ATTEND Surgery
PROC: 05LY0ZZ Occlusion of Upper Vein, Open Approach (ICD-10-PCS; principal; 2019-12-31 08:00)
DX: R22.32 Localized swelling, mass and lump, left upper limb (principal)
CPT/HCPCS: 36415; 84132; 86850; 86900; 86901; 94760; J0131; J1644

== ENCOUNTER 2020-05-17 09:55 | Day surgery (SDC) | payer OTHER ==
[2020-05-14 09:22] VITALS: BMI 22.7
[2020-05-17] MEDS ORDERED: ONDANSETRON 4 MG/2 ML VIAL IVPUSH PRN (11:55)
[2020-05-17] MEDS ORDERED: PROMETHAZINE HCL 25 MG/1 ML VIAL IVPUSH PRN (11:55)
[2020-05-17] MEDS ORDERED: oxyCODONE HCL 5 MG TABLET PO PRN (11:55)
[2020-05-17] MEDS ORDERED: SODIUM CHLORIDE 1,000 ML IV SCH (12:00)
[2020-05-17] MEDS ORDERED: MIDAZOLAM HCL 2 MG/2 ML SINGLE DOSE VIAL ONE (12:09)
[2020-05-17] MEDS ORDERED: LIDOCAINE HCL 1%, 10 MG/ML (20ML VIAL) ONE (12:16)
[2020-05-17] MEDS ORDERED: LIDOCAINE HCL/PF 2% SDV 5ML VIAL ONE (12:45)
[2020-05-17] MEDS ORDERED: CLINDAMYCIN PHOSPHATE 600 MG/4 ML VIAL ONE (12:51)
[2020-05-17] MEDS ORDERED: CLINDAMYCIN 600 MG PREMIX BAG IVPB ONE (12:52)
[2020-05-17] MEDS ORDERED: DEXAMETHASONE SOD PHOSPHATE 4 MG/1 ML VIAL ONE (12:52)
[2020-05-17] MEDS ORDERED: LIDOCAINE HCL 1%, 10 MG/ML (20ML VIAL) NR ONE (13:03)
[2020-05-17] MEDS ORDERED: BACITRACIN 50,000 UNITS VIAL TP ONE (13:14)
[2020-05-17] MEDS ORDERED: KETOROLAC TROMETHAMINE 30 MG/1 ML VIAL ONE (13:25)
[2020-05-17 15:34] VITALS: BP 129/72; PULSE 86; TEMP 98
== END 2020-05-17 15:35 | disposition home or self-care (01) ==
LOC: JASU-SURG 09:55
PROVIDERS: ATTEND Surgery
PROC: 03PY0JZ Removal of Synthetic Substitute from Upper Artery, Open Approach (ICD-10-PCS; principal; 2020-05-17 12:00)
DX: T82.7XXA Infection and inflammatory reaction due to other cardiac and vascular devices, implants and grafts, initial encounter (principal); I12.0 Hypertensive chronic kidney disease with stage 5 chronic kidney disease or end stage renal disease; N18.6 End stage renal disease; Z99.2 Dependence on renal dialysis
CPT/HCPCS: 36415; 84132; 88300-TC; 94760

== ENCOUNTER 2021-05-04 04:29 | Day surgery (SDC) | payer OTHER ==
[2021-05-03 15:25] VITALS: BMI 22.2
[2021-05-04] MEDS ORDERED: LIDOCAINE HCL 1%, 10 MG/ML (20ML VIAL) ONE (13:15)
[2021-05-04] MEDS ORDERED: HEPARIN NA (PORCINE) 5,000 UNITS/ML 1ML VIAL ONE (13:15)
[2021-05-04 14:20] VITALS: BP 169/105; PULSE 88; TEMP 98.2
== END 2021-05-04 14:30 | disposition home or self-care (01) ==
LOC: JASU-SURG 04:29
PROVIDERS: ATTEND Surgery
DX: Z53.8 Procedure and treatment not carried out for other reasons (principal)
CPT/HCPCS: 36415; 84132; 93005; 93010; J1644

== ENCOUNTER 2021-05-18 04:29 | Day surgery (SDC) | payer OTHER ==
[2021-05-16 18:07] VITALS: BMI 23.2
[2021-05-18 07:03] LABS: CALCIUM 9.8 mg/dL (8.5-10.1)
[2021-05-18 07:07] LABS: CREATININE 6.6 mg/dL (0.55-1.3)
[2021-05-18] MEDS ORDERED: LIDOCAINE HCL 1%, 10 MG/ML (20ML VIAL) ONE (07:18)
[2021-05-18] MEDS ORDERED: PAPAVERINE HCL 30 MG/1 ML 10 ML VIAL NR ONE (07:18)
[2021-05-18] MEDS ORDERED: HEPARIN NA (PORCINE) 5,000 UNITS/ML 1ML VIAL ONE (07:18)
[2021-05-18] MEDS ORDERED: POVIDONE-IODINE OINTMENT 10% - 28.4 GM TUBE ONE (07:24)
[2021-05-18] MEDS ORDERED: PROPOFOL 20 ML ONE (08:11)
[2021-05-18] MEDS ORDERED: MIDAZOLAM HCL 2 MG/2 ML SINGLE DOSE VIAL ONE (08:11)
[2021-05-18] MEDS ORDERED: LIDOCAINE HCL 1%, 10 MG/ML (20ML VIAL) NR ONE (08:38)
[2021-05-18] MEDS ORDERED: HEPARIN NA (PORCINE) 5,000 UNITS/ML 1ML VIAL SQ ONE (08:45)
[2021-05-18] MEDS ORDERED: ONDANSETRON 4 MG/2 ML VIAL ONE (09:35)
[2021-05-18] MEDS ORDERED: DEXAMETHASONE SOD PHOSPHATE 4 MG/1 ML VIAL ONE (09:35)
[2021-05-18] MEDS ORDERED: ONDANSETRON 4 MG/2 ML VIAL IVPUSH PRN (10:13)
[2021-05-18] MEDS ORDERED: ALBUTEROL SO4 0.083% IH SOL 2.5 MG/3 ML VIAL.NEB. NEB PRN (10:14)
[2021-05-18 12:16] VITALS: BP 121/77; PULSE 91; TEMP 97.1
== END 2021-05-18 12:25 | disposition home or self-care (01) ==
LOC: JASU-SURG 04:29
PROVIDERS: ATTEND Surgery
PROC: 03170ZD Bypass Right Brachial Artery to Upper Arm Vein, Open Approach (ICD-10-PCS; principal; 2021-05-18 08:00)
DX: I12.0 Hypertensive chronic kidney disease with stage 5 chronic kidney disease or end stage renal disease (principal); N18.6 End stage renal disease
CPT/HCPCS: 36415; 80048; 94760; J1644

== ENCOUNTER 2021-08-17 04:15 | Day surgery (SDC) | payer OTHER ==
[2021-08-17 06:52] LABS: INR 1.07 (0.83-1.09); PROTHROMBIN TIME (PATIENT) 13.2 SEC (9.7-13.0)
[2021-08-17 06:54] LABS: HEMATOCRIT 33.2 % (32.4-45.2); HEMOGLOBIN 10.6 GM/dL (10.7-15.3); MCH 27.9 pg (25.7-33.7); MCHC 31.9 g/dl (32.0-36.0); MEAN CELL VOLUME 87.4 fl (80-96); MEAN PLT VOLUME 7.8 fl (7.5-11.1); PLATELET COUNT 235 10^3/uL (134-434); RDW 17.2 % (11.6-15.6); WHITE BLOOD COUNT 12.7 K/mm3 (4.0-10.0)
[2021-08-17 07:07] LABS: CALCIUM 10.5 mg/dL (8.5-10.1)
[2021-08-17 07:08] LABS: ALBUMIN 3.3 g/dl (3.4-5.0); BLOOD UREA NITROGEN 38.6 mg/dL (7-18)
[2021-08-17 07:11] LABS: CREATININE 5.6 mg/dL (0.55-1.3)
[2021-08-17 07:12] LABS: BILIRUBIN,TOTAL 0.6 mg/dL (0.2-1)
[2021-08-17 07:13] LABS: TOT PROT 6.8 g/dl (6.4-8.2)
[2021-08-17 07:14] VITALS: BMI 21.8
[2021-08-17] MEDS ORDERED: HEPARIN NA (PORCINE) 5,000 UNITS/ML 1ML VIAL ONE (07:29)
[2021-08-17] MEDS ORDERED: POVIDONE-IODINE OINTMENT 10% - 28.4 GM TUBE ONE (07:29)
[2021-08-17] MEDS ORDERED: PAPAVERINE HCL 30 MG/1 ML 10 ML VIAL NR ONE (07:29)
[2021-08-17] MEDS ORDERED: LIDOCAINE HCL 1%, 10 MG/ML (20ML VIAL) ONE (07:29)
[2021-08-17] MEDS ORDERED: ceFAZolin SODIUM 1 GM VIAL IVPB ONE (08:20)
[2021-08-17] MEDS ORDERED: HEPARIN NA (PORCINE) 5,000 UNITS/ML 1ML VIAL SQ ONE (08:30)
[2021-08-17] MEDS ORDERED: oxyCODONE HCL 5 MG TABLET ONE (09:48)
[2021-08-17 10:15] VITALS: PULSE 89
[2021-08-17] MEDS ORDERED: ONDANSETRON 4 MG/2 ML VIAL IVPUSH PRN (10:37)
[2021-08-17] MEDS ORDERED: oxyCODONE HCL 5 MG TABLET PO PRN (10:37)
[2021-08-17 12:16] VITALS: BP 141/71; TEMP 98
== END 2021-08-17 11:00 | disposition home or self-care (01) ==
LOC: JASU-SURG 04:15
PROVIDERS: ATTEND Surgery
PROC: 05WY03Z Revision of Infusion Device in Upper Vein, Open Approach (ICD-10-PCS; principal; 2021-08-17 08:00)
DX: I12.0 Hypertensive chronic kidney disease with stage 5 chronic kidney disease or end stage renal disease (principal); N18.6 End stage renal disease; Z99.2 Dependence on renal dialysis; I25.10 Atherosclerotic heart disease of native coronary artery without angina pectoris; E78.5 Hyperlipidemia, unspecified; J44.9 Chronic obstructive pulmonary disease, unspecified; K21.9 Gastro-esophageal reflux disease without esophagitis; D64.9 Anemia, unspecified
CPT/HCPCS: 36415; 80053; 85027; 85610; 85730; 94760; J1644

== ENCOUNTER 2022-09-23 17:50 | Inpatient (IN) | payer OTHER ==
[2022-09-23 18:06] VITALS: BMI 19.8
[2022-09-23 19:02] LABS: HEMATOCRIT 39.6 % (32.4-45.2); MCH 29.5 pg (25.7-33.7); MCHC 32.8 g/dl (32.0-36.0); MEAN CELL VOLUME 90.1 fl (80-96); MEAN PLT VOLUME 8.8 fl (7.5-11.1); PLATELET COUNT 285.7 10^3/uL (134-434); RBC 4.39 10^6/uL (3.60-5.2); RDW 19.3 % (11.6-15.6); WHITE BLOOD COUNT 17.6 10^3/uL (4.0-10.8)
[2022-09-23 19:07] LABS: INR 1.34 (0.83-1.09); PROTHROMBIN TIME (PATIENT) 15.5 SEC (9.7-13.0)
[2022-09-23 19:10] LABS: ACTIVATED PTT 30.7 SECONDS (25.2-36.5)
[2022-09-23 19:14] LABS: BILIRUBIN,TOTAL 0.9 mg/dl (0.2-1); CALCIUM 9.8 mg/dl (8.5-10); CREATININE 5.8 mg/dl (0.55-1.3); TOT PROT 5.7 g/dl (6.4-8.2)
[2022-09-23 19:29] LABS: ARTERIAL BLD GAS O2 SATURATION 94.2 % (95-98); ARTERIAL BLOOD GAS BASE EXCESS -0.7 mmol/L (-2-2); ARTERIAL BLOOD GAS pH 7.428 (7.350-7.450)
[2022-09-23] MEDS ORDERED: MAG HYDROX/AL HYDROX/SIMETH -MYLANTA- ORAL SUSPENSION PO ONE (21:11)
[2022-09-23] MEDS ORDERED: MAG HYDROX/AL HYDROX/SIMETH 30 ML UNIT-DOSE CUP ONE (21:13)
[2022-09-23] MEDS ORDERED: DOCUSATE SODIUM 100 MG CAPSULE (FP) PO PRN (21:19)
[2022-09-23] MEDS ORDERED: ACETAMINOPHEN 325 MG TABLET (FP) PO PRN (21:19)
[2022-09-24] MEDS ORDERED: ALPRAZolam 0.25 MG TABLET PO PRN (00:12)
[2022-09-24] MEDS ORDERED: ALBUTEROL SO4 HFA INHALER IH PRN (00:12)
[2022-09-24] MEDS ORDERED: METOPROLOL TARTRATE 5 MG/5 ML VIAL IVPUSH ONE (05:28)
[2022-09-24] MEDS ORDERED: HEPARIN NA (PORCINE) 5,000 UNITS/ML 1ML VIAL SQ SCH (06:00)
[2022-09-24] MEDS ORDERED: PANTOPRAZOLE SODIUM 40 MG VIAL IVPUSH ONE (06:57)
[2022-09-24 09:11] LABS: HEMATOCRIT 38.4 % (32.4-45.2); HEMOGLOBIN 12.3 G/dL (10.7-15.3); MCH 29.6 pg (25.7-33.7); MCHC 32.1 g/dl (32.0-36.0); MEAN CELL VOLUME 92.4 fl (80-96); MEAN PLT VOLUME 9.4 fl (7.5-11.1); PLATELET COUNT 226.3 10^3/uL (134-434); RBC 4.16 10^6/uL (3.60-5.2); RDW 18.8 % (11.6-15.6); WHITE BLOOD COUNT 14.1 10^3/uL (4.0-10.8)
[2022-09-24 09:30] LABS: CALCIUM 9.6 mg/dl (8.5-10); CREATININE 6.2 mg/dl (0.55-1.3); MAGNESIUM 1.9 mg/dL (1.8-2.4); PHOSPHOROUS 7.6 mg/dl (2.5-4.9)
[2022-09-24] MEDS ORDERED: PANTOPRAZOLE 40 MG TABLET PO SCH (10:00)
[2022-09-24 10:37] VITALS: BP 122/63; PULSE 47; RESP 18; TEMP 97.3
[2022-09-24] MEDS ORDERED: ROSUVASTATIN CA 10 MG TABLET PO SCH (22:00)
[2022-09-25] MEDS ORDERED: PANTOPRAZOLE 40 MG TABLET PO SCH (10:00)
== END 2022-09-24 11:57 | disposition short-term general hospital (02) | DRG 308 ==
LOC: FER 17:50 → FM/S 20:16
PROVIDERS: ADMIT Internal Medicine; ATTEND Internal Medicine
DX: I44.2 Atrioventricular block, complete (principal); N18.6 End stage renal disease; I12.0 Hypertensive chronic kidney disease with stage 5 chronic kidney disease or end stage renal disease; S09.90XA Unspecified injury of head, initial encounter; W19.XXXA Unspecified fall, initial encounter; Y93.89 Activity, other specified; Y92.002 Bathroom of unspecified non-institutional (private) residence as the place of occurrence of the external cause; Y99.8 Other external cause status; I10 Essential (primary) hypertension; E78.5 Hyperlipidemia, unspecified; Z99.2 Dependence on renal dialysis; F41.9 Anxiety disorder, unspecified; D63.8 Anemia in other chronic diseases classified elsewhere; J44.9 Chronic obstructive pulmonary disease, unspecified; K21.9 Gastro-esophageal reflux disease without esophagitis; R77.8 Other specified abnormalities of plasma proteins; D72.829 Elevated white blood cell count, unspecified
CPT/HCPCS: 0241U-QW; 36415; 36600; 70450-TC; 70486-TC; 71045-TC-FY; 72125-TC; 80048; 80053; 82803; 83605; 83735; 84100; 84484; 85027; 85610; 85730; 93005; 93010; 99285-25; J1644

== ENCOUNTER 2022-10-20 16:59 | Inpatient (IN) | payer OTHER ==
[2022-10-20] MEDS ORDERED: LACTATED RINGERS SOLUTION 1000 ML INFUS.BAG IV ONE (17:30)
[2022-10-20] MEDS ORDERED: LIDOCAINE 5% TOPICAL PATCH ONE (18:19)
[2022-10-20 19:28] LABS: BASO % 0.6 % (0-2.0); HEMATOCRIT 25.8 % (32.4-45.2); LYMPH % 5.6 % (8-40); MCH 28.5 pg (25.7-33.7); MEAN CELL VOLUME 91.9 fl (80-96); MEAN PLT VOLUME 8.7 fl (7.5-11.1); MONO % 6.2 % (3.8-10.2); NEUT % 87.6 % (42.8-82.8); PLATELET COUNT 209 10^3/uL (134-434); RBC 2.81 M/mm3 (3.60-5.2); RDW 21.5 % (11.6-15.6); WHITE BLOOD COUNT 14.8 K/mm3 (4.0-10.0)
[2022-10-20 19:43] LABS: INR 1.11 (0.83-1.09); PROTHROMBIN TIME (PATIENT) 12.8 SEC (9.7-13.0)
[2022-10-20 19:46] LABS: ACTIVATED PTT 27.4 SECONDS (25.2-36.5)
[2022-10-20 19:49] LABS: ALBUMIN 2.4 g/dl (3.4-5.0)
[2022-10-20 19:53] LABS: CREATININE 4.2 mg/dL (0.55-1.3); PHOSPHOROUS 4.4 mg/dL (2.5-4.9)
[2022-10-20 19:54] LABS: BILIRUBIN,TOTAL 0.4 mg/dL (0.2-1); TOT PROT 4.9 g/dl (6.4-8.2)
[2022-10-20] MEDS ORDERED: VANCOMYCIN 1 GM in D5W (PRE-DOCKED) 1,000 MG/250 ML IVPB ONE (19:54)
[2022-10-20] MEDS ORDERED: PIPERACILLIN/TAZOB 3.375 GM 3.375 GM in DEXTROSE 5%-WATER - 50 ML IVPB ONE (19:54)
[2022-10-20] MEDS ORDERED: ACETAMINOPHEN 1000 MG/100 ML BAG IVPB ONE (19:54)
[2022-10-20] MEDS ORDERED: PANTOPRAZOLE SODIUM 40 MG VIAL IVPUSH ONE (20:35)
[2022-10-20] MEDS ORDERED: PANTOPRAZOLE SODIUM 40 MG VIAL ONE (20:58)
[2022-10-20] MEDS ORDERED: ACETAMINOPHEN INJECTION 100 ML IVPB ONE (20:58)
[2022-10-20] MEDS ORDERED: PIPERACILLIN/TAZOB 3.375 GM 3.375 GM/50 ML BAG IVPB ONE (20:59)
[2022-10-20 23:24] LABS: ANISOCYTOSIS 1+; MACROCYTOSIS 1+; OVALOCYTE 1+; PLATELET ESTIMATE NORMAL
[2022-10-21] MEDS ORDERED: VANCOMYCIN/WATER FOR INJ (PEG) 1,000 MG/200 ML BAG IVPB ONE (00:31)
[2022-10-21 00:47] LABS: HEMATOCRIT 27.7 % (32.4-45.2); HEMOGLOBIN 8.8 GM/dL (10.7-15.3); MCH 29.4 pg (25.7-33.7); MCHC 31.7 g/dl (32.0-36.0); MEAN CELL VOLUME 92.8 fl (80-96); MEAN PLT VOLUME 8.3 fl (7.5-11.1); PLATELET COUNT 166 10^3/uL (134-434); RBC 2.98 M/mm3 (3.60-5.2); RDW 18.7 % (11.6-15.6); WHITE BLOOD COUNT 11.2 K/mm3 (4.0-10.0)
[2022-10-21 02:07] VITALS: BMI 21.8
[2022-10-21] MEDS ORDERED: FLU VACC QS2022-23(6MOS UP)/PF 60 MCG/0.5 ML SYRINGE IM ONE (02:08)
[2022-10-21 03:52] LABS: EPI CELLS 13 /uL (0-25.1); HYALINE CASTS 1 /uL (0-3.1); PH,URINE 7.5 (5.0-8.0); URINE APPEARANCE CLEAR; URINE BACTERIA 6 /uL (0-1359); URINE BILIRUBIN NEGATIVE (NEGATIVE); URINE COLOR YELLOW; URINE GLUCOSE (UA) NEGATIVE (NEGATIVE); URINE KETONE NEGATIVE (NEGATIVE); URINE LEUK ESTERASE NEGATIVE (NEGATIVE); URINE NITRITE NEGATIVE (NEGATIVE); URINE PROTEIN 2+ (NEGATIVE); URINE RBC 5 /uL (0-23.9); URINE UROBILINOGEN 0.2 mg/dL (0.2-1.0); URINE WBC 30 /uL (0-25.8)
[2022-10-21] MEDS: PIPERACILLIN/TAZOB 2.25 GM 2.25 GM in DEXTROSE 5%-WATER - 50 ML IVPB SCH ×4 (06:44→21:19)
[2022-10-21] MEDS ORDERED: DEXMEDETOMIDINE HCL 200 MCG/2 ML IVPB ONE (08:19)
[2022-10-21] MEDS ORDERED: HEPARIN NA (PORCINE) 5,000 UNITS/ML 1ML VIAL ONE ×2 (08:21→08:22)
[2022-10-21] MEDS ORDERED: LIDOCAINE HCL 1%, 10 MG/ML (20ML VIAL) ONE (08:21)
[2022-10-21] MEDS ORDERED: FENTANYL CITRATE/PF 50 MCG/ML VIAL IVPUSH PRN (08:22)
[2022-10-21 09:14] LABS: YEAST NONE SEEN (NEGATIVE)
[2022-10-21] MEDS ORDERED: FENTANYL CITRATE/PF 50 MCG/ML VIAL ONE ×2 (09:14→09:23)
[2022-10-21] MEDS ORDERED: LIDOCAINE HCL 1%, 10 MG/ML (20ML VIAL) INF ONE ×2 (09:27)
[2022-10-21] MEDS ORDERED: POVIDONE-IODINE OINTMENT 10% - 28.4 GM TUBE ONE (10:19)
[2022-10-21] MEDS ORDERED: POVIDONE-IODINE OINTMENT 10% - 28.4 GM TUBE TP ONE (10:41)
[2022-10-21] MEDS: MUPIROCIN 2% TOPICAL OINTMENT FOR DECOLONIZATION NS SCH ×2 (11:09→21:19)
[2022-10-21] MEDS: PANTOPRAZOLE SODIUM 40 MG VIAL IVPUSH SCH ×2 (11:09→21:19)
[2022-10-21] MEDS ORDERED: PIPERACILLIN/TAZOBACTAM 2.25 GM VIAL IVPB ONE ×2 (11:12→15:18)
[2022-10-21] MEDS ORDERED: ACETAMINOPHEN 325 MG TABLET (FP) PO ONE (12:30)
[2022-10-21 15:49] LABS: BASO % 1.3 % (0-2.0); HEMATOCRIT 28.3 % (32.4-45.2); LYMPH % 6.1 % (8-40); MCH 29.1 pg (25.7-33.7); MCHC 31.8 g/dl (32.0-36.0); MEAN CELL VOLUME 91.7 fl (80-96); MEAN PLT VOLUME 8.7 fl (7.5-11.1); MONO % 6.9 % (3.8-10.2); NEUT % 85.7 % (42.8-82.8); PLATELET COUNT 169 10^3/uL (134-434); RBC 3.08 M/mm3 (3.60-5.2); RDW 19.7 % (11.6-15.6); WHITE BLOOD COUNT 10.7 K/mm3 (4.0-10.0)
[2022-10-21] MEDS: NOREPINEPHRINE BITARTRATE 4,000 MCG in DEXTROSE 5%-WATER - 496 ML IV SCH (15:57)
[2022-10-21 15:58] LABS: INR 1.12 (0.83-1.09); PROTHROMBIN TIME (PATIENT) 12.9 SEC (9.7-13.0)
[2022-10-21 16:05] LABS: CHLORIDE 104 mmol/L (98-107); SODIUM 141 mmol/L (136-145)
[2022-10-21 16:08] LABS: ANION GAP 11 MMOL/L (8-16); BLOOD UREA NITROGEN 34.3 mg/dL (7-18); CO2 26 mmol/L (21-32); GLUCOSE,RANDOM 153 mg/dL (74-106); MAGNESIUM 1.7 mg/dL (1.8-2.4)
[2022-10-21 16:09] LABS: ALBUMIN 2.1 g/dl (3.4-5.0)
[2022-10-21 16:11] LABS: PHOSPHOROUS 4.3 mg/dL (2.5-4.9); SGOT/AST 9 U/L (15-37)
[2022-10-21 16:12] LABS: CREATININE 4.4 mg/dL (0.55-1.3); SGPT/ALT 11 U/L (13-61)
[2022-10-21 16:13] LABS: TOT PROT 4.6 g/dl (6.4-8.2)
[2022-10-21 16:14] LABS: ALK PHOS 60 U/L (45-117)
[2022-10-21 16:23] LABS: ARTERIAL BLD GAS O2 SATURATION 97.1 % (95-98); ARTERIAL BLOOD GAS BASE EXCESS 1.5 mmol/L (-2-2); ARTERIAL BLOOD GAS PO2 88.2 mmHg (80-100); ARTERIAL BLOOD GAS pH 7.456 (7.350-7.450)
[2022-10-21] MEDS ORDERED: LIDOCAINE 5% TOPICAL PATCH TP ONE (17:47)
[2022-10-21] MEDS ORDERED: MIDODRINE HCL 5 MG TABLET PO SCH (18:00)
[2022-10-21] MEDS: MIDODRINE HCL 5 MG TABLET PO SCH (18:43)
[2022-10-21] MEDS ORDERED: ALPRAZolam 0.25 MG TABLET PO ONE (21:10)
[2022-10-21] MEDS: LIDOCAINE PATCH REMOVAL MC SCH (21:19)
[2022-10-21] MEDS ORDERED: CHLORHEXIDINE GLUCONATE 4% CLEANSER FOR DECOLONIZATION TP SCH (22:00)
[2022-10-22] MEDS ORDERED: MELATONIN 5 MG TABLETS PO ONE (01:07)
[2022-10-22] MEDS ORDERED: PIPERACILLIN/TAZOB 2.25 GM 2.25 GM in DEXTROSE 5%-WATER - 50 ML IVPB SCH (03:00)
[2022-10-22 07:51] LABS: CHLORIDE 106 mmol/L (98-107); SODIUM 145 mmol/L (136-145)
[2022-10-22 07:54] LABS: ANION GAP 8 MMOL/L (8-16); BLOOD UREA NITROGEN 16.1 mg/dL (7-18); CO2 31 mmol/L (21-32); GLUCOSE,RANDOM 120 mg/dL (74-106); MAGNESIUM 1.9 mg/dL (1.8-2.4)
[2022-10-22 07:57] LABS: CREATININE 2.7 mg/dL (0.55-1.3)
[2022-10-22 07:58] LABS: PHOSPHOROUS 3.5 mg/dL (2.5-4.9)
[2022-10-22 08:16] LABS: HEMATOCRIT 26.5 % (32.4-45.2); HEMOGLOBIN 8.5 GM/dL (10.7-15.3); MCH 29.4 pg (25.7-33.7); MCHC 32.1 g/dl (32.0-36.0); MEAN CELL VOLUME 91.8 fl (80-96); MEAN PLT VOLUME 8.6 fl (7.5-11.1); PLATELET COUNT 135 10^3/uL (134-434); RBC 2.88 M/mm3 (3.60-5.2); RDW 19.5 % (11.6-15.6); WHITE BLOOD COUNT 8.7 K/mm3 (4.0-10.0)
[2022-10-22] MEDS ORDERED: NOREPINEPHRINE BITARTRATE 4 MG/4 ML ML IV ONE (10:23)
[2022-10-22] MEDS: MIDODRINE HCL 5 MG TABLET PO SCH ×3 (10:48→18:12)
[2022-10-22] MEDS: PANTOPRAZOLE SODIUM 40 MG VIAL IVPUSH SCH ×2 (10:48→21:12)
[2022-10-22] MEDS: MUPIROCIN 2% TOPICAL OINTMENT FOR DECOLONIZATION NS SCH ×2 (10:48→21:12)
[2022-10-22] MEDS ORDERED: HYDROCORTISONE SOD SUCCINATE 100 MG/2 ML VIAL IVPUSH ONE (14:32)
[2022-10-22] MEDS: NOREPINEPHRINE BITARTRATE 4,000 MCG in DEXTROSE 5%-WATER - 496 ML IV SCH (15:11)
[2022-10-22] MEDS: CHLORHEXIDINE GLUCONATE 4% CLEANSER FOR DECOLONIZATION TP SCH (21:12)
[2022-10-22] MEDS: HYDROCORTISONE SOD SUCCINATE 100 MG/2 ML VIAL IVPUSH SCH (21:12)
[2022-10-22] MEDS: LIDOCAINE PATCH REMOVAL MC SCH (21:19)
[2022-10-23] MEDS: HYDROCORTISONE SOD SUCCINATE 100 MG/2 ML VIAL IVPUSH SCH ×3 (05:39→21:34)
[2022-10-23] MEDS ORDERED: DOCUSATE SODIUM 100 MG CAPSULE (FP) PO PRN (07:00)
[2022-10-23 07:50] LABS: BASO % 0.5 % (0-2.0); HEMATOCRIT 28.6 % (32.4-45.2); HEMOGLOBIN 8.9 GM/dL (10.7-15.3); LYMPH % 6.7 % (8-40); MCH 29.1 pg (25.7-33.7); MCHC 31.3 g/dl (32.0-36.0); MEAN CELL VOLUME 93.1 fl (80-96); MEAN PLT VOLUME 8.9 fl (7.5-11.1); MONO % 2.3 % (3.8-10.2); NEUT % 90.5 % (42.8-82.8); PLATELET COUNT 146 10^3/uL (134-434); RBC 3.07 M/mm3 (3.60-5.2); RDW 19.9 % (11.6-15.6); WHITE BLOOD COUNT 7.2 K/mm3 (4.0-10.0)
[2022-10-23 08:37] LABS: CALCIUM 10.8 mg/dL (8.5-10.1)
[2022-10-23 08:38] LABS: ALBUMIN 2.2 g/dl (3.4-5.0); BLOOD UREA NITROGEN 22.8 mg/dL (7-18); MAGNESIUM 1.9 mg/dL (1.8-2.4)
[2022-10-23 08:41] LABS: CREATININE 3.4 mg/dL (0.55-1.3); PHOSPHOROUS 5.8 mg/dL (2.5-4.9)
[2022-10-23 08:42] LABS: BILIRUBIN,TOTAL 0.4 mg/dL (0.2-1); TOT PROT 4.7 g/dl (6.4-8.2)
[2022-10-23] MEDS: MUPIROCIN 2% TOPICAL OINTMENT FOR DECOLONIZATION NS SCH ×2 (09:24→21:34)
[2022-10-23] MEDS: POLYETHYLENE GLYCOL (HEALTHYLAX) 3350 17 GM PACKET PO SCH (09:25)
[2022-10-23] MEDS: PANTOPRAZOLE SODIUM 40 MG VIAL IVPUSH SCH ×2 (09:25→21:35)
[2022-10-23] MEDS: MIDODRINE HCL 5 MG TABLET PO SCH ×3 (09:25→18:00)
[2022-10-23] MEDS ORDERED: SODIUM CHLORIDE 250 ML IV STA (10:40)
[2022-10-23] MEDS ORDERED: HYDROCORTISONE 1% TOPICAL OINT 30 GM TUBE TP PRN (10:55)
[2022-10-23] MEDS: NOREPINEPHRINE BITARTRATE 4,000 MCG in DEXTROSE 5%-WATER - 496 ML IV SCH (14:58)
[2022-10-23] MEDS: ALPRAZolam 0.25 MG TABLET PO PRN (21:33)
[2022-10-23] MEDS: LIDOCAINE PATCH REMOVAL MC SCH (21:34)
[2022-10-23] MEDS: CHLORHEXIDINE GLUCONATE 4% CLEANSER FOR DECOLONIZATION TP SCH (21:34)
[2022-10-24] MEDS: HYDROCORTISONE SOD SUCCINATE 100 MG/2 ML VIAL IVPUSH SCH ×3 (06:04→21:47)
[2022-10-24] MEDS ORDERED: EPOETIN ALFA-EPBX 10,000 UNIT/ML VIAL IVPUSH ONE (08:00)
[2022-10-24 10:12] LABS: BASO % 0.3 % (0-2.0); HEMATOCRIT 29.7 % (32.4-45.2); HEMOGLOBIN 9.3 GM/dL (10.7-15.3); LYMPH % 5.9 % (8-40); MCHC 31.3 g/dl (32.0-36.0); MEAN CELL VOLUME 92.6 fl (80-96); MEAN PLT VOLUME 9.1 fl (7.5-11.1); MONO % 3.5 % (3.8-10.2); NEUT % 90.3 % (42.8-82.8); PLATELET COUNT 233 10^3/uL (134-434); RBC 3.21 M/mm3 (3.60-5.2); RDW 20.4 % (11.6-15.6); WHITE BLOOD COUNT 12.2 K/mm3 (4.0-10.0)
[2022-10-24 10:26] LABS: ACTIVATED PTT 27.2 SECONDS (25.2-36.5); INR 1.01 (0.83-1.09); PROTHROMBIN TIME (PATIENT) 11.6 SEC (9.7-13.0)
[2022-10-24 10:39] LABS: ALBUMIN 2.4 g/dl (3.4-5.0); BLOOD UREA NITROGEN 33.3 mg/dL (7-18); CALCIUM 11.4 mg/dL (8.5-10.1)
[2022-10-24 10:40] LABS: MAGNESIUM 1.8 mg/dL (1.8-2.4)
[2022-10-24 10:42] LABS: CREATININE 4.2 mg/dL (0.55-1.3); PHOSPHOROUS 6.5 mg/dL (2.5-4.9)
[2022-10-24 10:44] LABS: BILIRUBIN,TOTAL 0.5 mg/dL (0.2-1)
[2022-10-24] MEDS: POLYETHYLENE GLYCOL (HEALTHYLAX) 3350 17 GM PACKET PO SCH (11:23)
[2022-10-24] MEDS: MIDODRINE HCL 5 MG TABLET PO SCH ×3 (11:23→17:14)
[2022-10-24] MEDS: MUPIROCIN 2% TOPICAL OINTMENT FOR DECOLONIZATION NS SCH ×2 (11:23→21:47)
[2022-10-24] MEDS: PANTOPRAZOLE SODIUM 40 MG VIAL IVPUSH SCH ×2 (11:23→21:47)
[2022-10-24] MEDS: ALPRAZolam 0.25 MG TABLET PO PRN ×2 (12:06→23:24)
[2022-10-24] MEDS: NOREPINEPHRINE BITARTRATE 4,000 MCG in DEXTROSE 5%-WATER - 496 ML IV SCH (14:54)
[2022-10-24] MEDS ORDERED: ACETAMINOPHEN 325 MG TABLET (FP) PO ONE (16:54)
[2022-10-24] MEDS: LIDOCAINE PATCH REMOVAL MC SCH (21:47)
[2022-10-24] MEDS: CHLORHEXIDINE GLUCONATE 4% CLEANSER FOR DECOLONIZATION TP SCH (21:47)
[2022-10-25] MEDS ORDERED: DOCUSATE SODIUM 100 MG CAPSULE (FP) PO PRN (02:50)
[2022-10-25] MEDS ORDERED: HYDROCORTISONE 1% TOPICAL OINT 30 GM TUBE TP PRN (02:50)
[2022-10-25] MEDS ORDERED: ALPRAZolam 0.25 MG TABLET PO PRN (02:50)
[2022-10-25] MEDS ORDERED: ALBUTEROL SO4 HFA INHALER IH PRN (02:50)
[2022-10-25] MEDS: HYDROCORTISONE SOD SUCCINATE 100 MG/2 ML VIAL IVPUSH SCH ×3 (06:18→22:42)
[2022-10-25] MEDS ORDERED: MIDODRINE HCL 5 MG TABLET PO SCH (10:00)
[2022-10-25] MEDS: POLYETHYLENE GLYCOL (HEALTHYLAX) 3350 17 GM PACKET PO SCH (10:43)
[2022-10-25] MEDS: ALPRAZolam 0.25 MG TABLET PO PRN (10:44)
[2022-10-25] MEDS: PANTOPRAZOLE SODIUM 40 MG VIAL IVPUSH SCH ×2 (10:44→22:42)
[2022-10-25] MEDS: CINACALCET HCL 30 MG TAB (FP) PO SCH (10:44)
[2022-10-25] MEDS ORDERED: TAMSULOSIN HCL 0.4 MG CAP PO ONE ×2 (12:42→18:00)
[2022-10-25] MEDS: MIDODRINE HCL 5 MG TABLET PO SCH ×2 (14:24→18:11)
[2022-10-26] MEDS: HYDROCORTISONE SOD SUCCINATE 100 MG/2 ML VIAL IVPUSH SCH ×2 (06:29→14:07)
[2022-10-26] MEDS: POLYETHYLENE GLYCOL (HEALTHYLAX) 3350 17 GM PACKET PO SCH (09:54)
[2022-10-26] MEDS: ALPRAZolam 0.25 MG TABLET PO PRN (09:54)
[2022-10-26] MEDS: CINACALCET HCL 30 MG TAB (FP) PO SCH (09:55)
[2022-10-26] MEDS: MIDODRINE HCL 5 MG TABLET PO SCH ×3 (09:55→17:42)
[2022-10-26] MEDS: PANTOPRAZOLE SODIUM 40 MG VIAL IVPUSH SCH (09:55)
[2022-10-26] MEDS: TAMSULOSIN HCL 0.4 MG CAP PO SCH (09:55)
[2022-10-26] MEDS ORDERED: SODIUM CHLORIDE 250 ML IV PRN (12:48)
[2022-10-26] MEDS ORDERED: EPOETIN ALFA-EPBX 10,000 UNIT/ML VIAL IVPUSH ONE (12:48)
[2022-10-26] MEDS: ALBUMIN HUMAN 25% 12.5 GM/50 ML VIAL IV SCH ×4 (13:00→16:30)
[2022-10-26 14:33] LABS: HEMATOCRIT 28.8 % (32.4-45.2); HEMOGLOBIN 9.3 GM/dL (10.7-15.3); MCH 30.1 pg (25.7-33.7); MCHC 32.3 g/dl (32.0-36.0); MEAN PLT VOLUME 8.4 fl (7.5-11.1); PLATELET COUNT 178 10^3/uL (134-434); RDW 19.5 % (11.6-15.6)
[2022-10-26 14:58] LABS: ALBUMIN 2.5 g/dl (3.4-5.0); CALCIUM 10.9 mg/dL (8.5-10.1)
[2022-10-26 14:59] LABS: BLOOD UREA NITROGEN 35.2 mg/dL (7-18)
[2022-10-26 15:05] LABS: BILIRUBIN,TOTAL 0.3 mg/dL (0.2-1); CREATININE 3.8 mg/dL (0.55-1.3)
[2022-10-26] MEDS ORDERED: MELATONIN 5 MG TABLETS PO ONE (22:37)
[2022-10-26] MEDS: PANTOPRAZOLE 40 MG TABLET PO SCH (22:47)
[2022-10-26] MEDS: HYDROCORTISONE 20 MG TABLET PO SCH (22:49)
[2022-10-27] MEDS: HYDROCORTISONE 20 MG TABLET PO SCH ×3 (05:56→23:44)
[2022-10-27] MEDS: TAMSULOSIN HCL 0.4 MG CAP PO SCH (10:49)
[2022-10-27] MEDS: PANTOPRAZOLE 40 MG TABLET PO SCH ×2 (10:49→23:43)
[2022-10-27] MEDS: CINACALCET HCL 30 MG TAB (FP) PO SCH (10:49)
[2022-10-27] MEDS: ALPRAZolam 0.25 MG TABLET PO PRN (10:49)
[2022-10-27] MEDS: MIDODRINE HCL 5 MG TABLET PO SCH ×3 (10:49→17:46)
[2022-10-27] MEDS: POLYETHYLENE GLYCOL (HEALTHYLAX) 3350 17 GM PACKET PO SCH (10:49)
[2022-10-27] MEDS: HYDROCORTISONE SOD SUCCINATE 100 MG/2 ML VIAL IVPUSH SCH (13:24)
[2022-10-27] MEDS ORDERED: SODIUM CHLORIDE 250 ML IV PRN (15:20)
[2022-10-28] MEDS ORDERED: HYDROCORTISONE SOD SUCCINATE 100 MG/2 ML VIAL IVPB SCH (07:30)
[2022-10-28] MEDS: PANTOPRAZOLE 40 MG TABLET PO SCH ×2 (09:04→23:15)
[2022-10-28] MEDS: TAMSULOSIN HCL 0.4 MG CAP PO SCH (09:04)
[2022-10-28] MEDS: MIDODRINE HCL 5 MG TABLET PO SCH ×2 (09:04→15:09)
[2022-10-28] MEDS: POLYETHYLENE GLYCOL (HEALTHYLAX) 3350 17 GM PACKET PO SCH (09:04)
[2022-10-28] MEDS: CINACALCET HCL 30 MG TAB (FP) PO SCH (09:05)
[2022-10-28] MEDS: ALPRAZolam 0.25 MG TABLET PO PRN ×3 (10:39→23:15)
[2022-10-28] MEDS: HYDROCORTISONE SOD SUCCINATE 100 MG/2 ML VIAL IM SCH (10:39)
[2022-10-28] MEDS: ROSUVASTATIN CA 10 MG TABLET PO SCH (12:06)
[2022-10-28] MEDS ORDERED: HEPARIN NA (PORCINE) 5,000 UNITS/ML 1ML VIAL IVPUSH ONE (15:20)
[2022-10-28] MEDS ORDERED: EPOETIN ALFA-EPBX 10,000 UNIT/ML VIAL SQ ONE (15:20)
[2022-10-28 18:15] LABS: HEMOGLOBIN 8.6 GM/dL (10.7-15.3); MCH 29.3 pg (25.7-33.7); MCHC 30.9 g/dl (32.0-36.0); MEAN CELL VOLUME 94.9 fl (80-96); MEAN PLT VOLUME 8.6 fl (7.5-11.1); PLATELET COUNT 191 10^3/uL (134-434); RBC 2.95 M/mm3 (3.60-5.2); RDW 20.3 % (11.6-15.6); WHITE BLOOD COUNT 10.1 K/mm3 (4.0-10.0)
[2022-10-28 18:34] LABS: BLOOD UREA NITROGEN 31.4 mg/dL (7-18); CALCIUM 10.1 mg/dL (8.5-10.1)
[2022-10-28 18:35] LABS: ALBUMIN 2.6 g/dl (3.4-5.0)
[2022-10-28 18:38] LABS: CREATININE 3.4 mg/dL (0.55-1.3)
[2022-10-28 18:39] LABS: BILIRUBIN,TOTAL 0.5 mg/dL (0.2-1)
[2022-10-29] MEDS: HYDROCORTISONE SOD SUCCINATE 100 MG/2 ML VIAL IM SCH ×4 (03:01→18:16)
[2022-10-29] MEDS: TAMSULOSIN HCL 0.4 MG CAP PO SCH (09:08)
[2022-10-29] MEDS: CINACALCET HCL 30 MG TAB (FP) PO SCH (09:08)
[2022-10-29] MEDS: PANTOPRAZOLE 40 MG TABLET PO SCH (09:09)
[2022-10-29] MEDS: ROSUVASTATIN CA 10 MG TABLET PO SCH (09:09)
[2022-10-29] MEDS: MIDODRINE HCL 5 MG TABLET PO SCH ×4 (09:09→18:16)
[2022-10-29] MEDS: POLYETHYLENE GLYCOL (HEALTHYLAX) 3350 17 GM PACKET PO SCH (09:09)
[2022-10-29] MEDS: ALPRAZolam 0.25 MG TABLET PO PRN ×2 (09:10→16:47)
[2022-10-29] MEDS: ESCITALOPRAM OXALATE 10 MG TABLET PO SCH (10:56)
[2022-10-30] MEDS: ALPRAZolam 0.25 MG TABLET PO PRN ×3 (01:57→18:06)
[2022-10-30] MEDS: PANTOPRAZOLE 40 MG TABLET PO SCH ×2 (01:57→10:44)
[2022-10-30] MEDS: HYDROCORTISONE SOD SUCCINATE 100 MG/2 ML VIAL IM SCH ×4 (01:58→18:07)
[2022-10-30] MEDS: TAMSULOSIN HCL 0.4 MG CAP PO SCH (10:44)
[2022-10-30] MEDS: ESCITALOPRAM OXALATE 10 MG TABLET PO SCH (10:44)
[2022-10-30] MEDS: POLYETHYLENE GLYCOL (HEALTHYLAX) 3350 17 GM PACKET PO SCH (10:44)
[2022-10-30] MEDS: CINACALCET HCL 30 MG TAB (FP) PO SCH (10:44)
[2022-10-30] MEDS: MIDODRINE HCL 5 MG TABLET PO SCH ×3 (10:44→18:09)
[2022-10-30] MEDS: ROSUVASTATIN CA 10 MG TABLET PO SCH (10:44)
[2022-10-30] MEDS: FLUDROCORTISONE ACETATE 0.1 MG TABLET (FP) PO SCH (11:15)
[2022-10-30] MEDS ORDERED: SODIUM CHLORIDE 250 ML IV PRN (13:00)
[2022-10-30] MEDS: LIDOCAINE 5% TOPICAL PATCH TP SCH (14:00)
[2022-10-31] MEDS: HYDROCORTISONE SOD SUCCINATE 100 MG/2 ML VIAL IM SCH ×3 (02:54→19:34)
[2022-10-31] MEDS: LIDOCAINE PATCH REMOVAL MC SCH ×2 (03:06→23:49)
[2022-10-31] MEDS: PANTOPRAZOLE 40 MG TABLET PO SCH ×3 (03:07→23:49)
[2022-10-31] MEDS: ALPRAZolam 0.25 MG TABLET PO PRN (06:27)
[2022-10-31] MEDS: POLYETHYLENE GLYCOL (HEALTHYLAX) 3350 17 GM PACKET PO SCH (11:12)
[2022-10-31] MEDS: LIDOCAINE 5% TOPICAL PATCH TP SCH (11:12)
[2022-10-31] MEDS: TAMSULOSIN HCL 0.4 MG CAP PO SCH (11:13)
[2022-10-31] MEDS: ESCITALOPRAM OXALATE 10 MG TABLET PO SCH (11:13)
[2022-10-31] MEDS: CINACALCET HCL 30 MG TAB (FP) PO SCH (11:14)
[2022-10-31] MEDS: MIDODRINE HCL 5 MG TABLET PO SCH ×3 (11:44→19:34)
[2022-10-31] MEDS: ROSUVASTATIN CA 10 MG TABLET PO SCH (11:47)
[2022-10-31] MEDS ORDERED: SODIUM CHLORIDE 250 ML IV PRN (14:26)
[2022-10-31] MEDS ORDERED: EPOETIN ALFA-EPBX 10,000 UNIT/ML VIAL IVPUSH ONE (15:00)
[2022-10-31] MEDS: ALBUMIN HUMAN 25% 12.5 GM/50 ML VIAL IV SCH ×4 (15:30→17:00)
[2022-10-31 17:29] LABS: HEMATOCRIT 28.8 % (32.4-45.2); HEMOGLOBIN 9.1 GM/dL (10.7-15.3); MCH 30.5 pg (25.7-33.7); MCHC 31.6 g/dl (32.0-36.0); MEAN CELL VOLUME 96.5 fl (80-96); MEAN PLT VOLUME 8.3 fl (7.5-11.1); PLATELET COUNT 189 10^3/uL (134-434); RBC 2.99 M/mm3 (3.60-5.2); RDW 23.2 % (11.6-15.6); WHITE BLOOD COUNT 9.1 K/mm3 (4.0-10.0)
[2022-10-31 17:37] LABS: CALCIUM 9.6 mg/dL (8.5-10.1)
[2022-10-31 17:38] LABS: BLOOD UREA NITROGEN 48.1 mg/dL (7-18)
[2022-10-31 17:41] LABS: CREATININE 4.2 mg/dL (0.55-1.3)
[2022-10-31] MEDS: ALPRAZolam 1 MG TABLET PO PRN (23:49)
[2022-11-01] MEDS: HYDROCORTISONE SOD SUCCINATE 100 MG/2 ML VIAL IM SCH ×2 (03:08→14:31)
[2022-11-01] MEDS: ROSUVASTATIN CA 10 MG TABLET PO SCH (11:17)
[2022-11-01] MEDS: PANTOPRAZOLE 40 MG TABLET PO SCH (11:17)
[2022-11-01] MEDS: TAMSULOSIN HCL 0.4 MG CAP PO SCH (11:17)
[2022-11-01] MEDS: MIDODRINE HCL 5 MG TABLET PO SCH ×2 (11:18→14:31)
[2022-11-01] MEDS: LIDOCAINE 5% TOPICAL PATCH TP SCH (11:18)
[2022-11-01] MEDS: ESCITALOPRAM OXALATE 10 MG TABLET PO SCH (11:18)
[2022-11-01] MEDS: CINACALCET HCL 30 MG TAB (FP) PO SCH (11:19)
[2022-11-01] MEDS: FLUDROCORTISONE ACETATE 0.1 MG TABLET (FP) PO SCH (11:19)
[2022-11-01] MEDS: POLYETHYLENE GLYCOL (HEALTHYLAX) 3350 17 GM PACKET PO SCH (11:19)
[2022-11-01 11:48] VITALS: BP 106/63; PULSE 103; RESP 20; TEMP 97.6
[2022-11-01] MEDS ORDERED: HYDROCORTISONE 10 MG TABLET PO SCH ×2 (14:00→22:00)
[2022-11-01] MEDS: ALPRAZolam 1 MG TABLET PO PRN (14:33)
[2022-11-02] MEDS ORDERED: HYDROCORTISONE 10 MG TABLET PO SCH (07:00)
== END 2022-11-01 17:40 | DRG 252 ==
LOC: JER 16:59 → JERBED 22:17 → JICU 10-21 01:56 → J7W 10-25 02:43
PROVIDERS: ADMIT Internal Medicine Pulmonary Disease; ATTEND Internal Medicine
PROC: 30233N1 Transfusion of Nonautologous Red Blood Cells into Peripheral Vein, Percutaneous Approach (ICD-10-PCS; 2022-10-20)
PROC: 037 Upper Arteries, Dilation (ICD-10-PCS; 2022-10-21)
PROC: B30HZZZ Plain Radiography of Right Upper Extremity Arteries (ICD-10-PCS; 2022-10-21)
PROC: 5A1D70Z Performance of Urinary Filtration, Intermittent, Less than 6 Hours Per Day (ICD-10-PCS; 2022-10-21)
PROC: 05CB0ZZ Extirpation of Matter from Right Basilic Vein, Open Approach (ICD-10-PCS; principal; 2022-10-21 08:00)
PROC: 5A1D70Z Performance of Urinary Filtration, Intermittent, Less than 6 Hours Per Day (ICD-10-PCS; 2022-10-22)
DX: T82.868A Thrombosis due to vascular prosthetic devices, implants and grafts, initial encounter (principal); N18.6 End stage renal disease; U07.1 COVID-19; I12.0 Hypertensive chronic kidney disease with stage 5 chronic kidney disease or end stage renal disease; R64 Cachexia; J96.11 Chronic respiratory failure with hypoxia; J98.11 Atelectasis; K92.2 Gastrointestinal hemorrhage, unspecified; I24.8 Other forms of acute ischemic heart disease; Y83.8 Other surgical procedures as the cause of abnormal reaction of the patient, or of later complication, without mention of misadventure at the time of the procedure; D64.9 Anemia, unspecified; Z99.2 Dependence on renal dialysis; J44.9 Chronic obstructive pulmonary disease, unspecified; Z68.21 Body mass index [BMI] 21.0-21.9, adult; I95.89 Other hypotension; F41.9 Anxiety disorder, unspecified; Z99.81 Dependence on supplemental oxygen; I25.10 Atherosclerotic heart disease of native coronary artery without angina pectoris; R62.7 Adult failure to thrive; R33.9 Retention of urine, unspecified; Z95.1 Presence of aortocoronary bypass graft
CPT/HCPCS: 0241U-QW; 36415; 36430; 36600; 71045-TC-FY; 74176-TC; 76000-TC-FY; 80048; 80053; 81003; 82024; 82272; 82533; 82550; 82803; 83605; 83735; 84100; 84439; 84443; 84484; 85025; 85027; 85610; 85730; 86803; 86850; 86900; 86901; 86922; 87040; 87086; 87340; 93005; 93010; 93306-TC; 97116-GP; 97161-GP; 99291; C9803-CS; J1644; P9038; P9047; P9058; Q5106; U0003; U0005

== ENCOUNTER 2022-11-03 20:53 | Inpatient (IN) | payer OTHER ==
[2022-11-03 21:32] VITALS: BMI 21.4
[2022-11-03] MEDS ORDERED: ALPRAZolam 2 MG TABLET PO ONE (23:22)
[2022-11-03 23:27] LABS: BASO % 1.1 % (0-2.0); EOS % 0.5 % (0-4.5); HEMATOCRIT 30.8 % (32.4-45.2); HEMOGLOBIN 9.4 GM/dL (10.7-15.3); LYMPH % 4.4 % (8-40); MCH 29.5 pg (25.7-33.7); MCHC 30.3 g/dl (32.0-36.0); MEAN CELL VOLUME 97.2 fl (80-96); MEAN PLT VOLUME 8.3 fl (7.5-11.1); PLATELET COUNT 154 10^3/uL (134-434); RBC 3.17 M/mm3 (3.60-5.2); RDW 22.9 % (11.6-15.6); WHITE BLOOD COUNT 14.3 K/mm3 (4.0-10.0)
[2022-11-03 23:39] LABS: CHLORIDE 103 mmol/L (98-107); SODIUM 140 mmol/L (136-145)
[2022-11-03] MEDS ORDERED: ALPRAZolam 1 MG TABLET ONE (23:40)
[2022-11-03 23:41] LABS: CALCIUM 8.9 mg/dL (8.5-10.1)
[2022-11-03 23:42] LABS: ALBUMIN 2.9 g/dl (3.4-5.0); BLOOD UREA NITROGEN 55.6 mg/dL (7-18); CO2 27 mmol/L (21-32); GLUCOSE,RANDOM 95 mg/dL (74-106); MAGNESIUM 1.8 mg/dL (1.8-2.4)
[2022-11-03 23:45] LABS: CREATININE 4.2 mg/dL (0.55-1.3); PHOSPHOROUS 4.3 mg/dL (2.5-4.9); SGOT/AST 39 U/L (15-37); SGPT/ALT 15 U/L (13-61)
[2022-11-03 23:46] LABS: BILIRUBIN,TOTAL 0.6 mg/dL (0.2-1)
[2022-11-03 23:47] LABS: TOT PROT 5.4 g/dl (6.4-8.2)
[2022-11-03 23:49] LABS: ALK PHOS 76 U/L (45-117)
[2022-11-03 23:57] LABS: ANISOCYTOSIS 1+; MACROCYTOSIS 1+
[2022-11-03 23:58] LABS: ANION GAP 11 MMOL/L (8-16)
[2022-11-04] MEDS ORDERED: CALCIUM GLUCONATE 10% - 1,000 MG/10 ML VIAL IVPB ONE (00:38)
[2022-11-04] MEDS ORDERED: INSULIN REGULAR HUMAN 100 UNITS/ML *VIAL IVPUSH ONE (00:39)
[2022-11-04] MEDS ORDERED: DEXTROSE 50%-WATER - 25 GM/50 ML VIAL IVPUSH ONE ×2 (00:39)
[2022-11-04] MEDS ORDERED: FUROSEMIDE 40 MG/4 ML INJECTABLE VIAL IVPUSH ONE (00:39)
[2022-11-04] MEDS ORDERED: CALCIUM GLUC IN NACL, ISO-OSM 1 GM/50 ML BAG IVPB ONE (00:53)
[2022-11-04] MEDS ORDERED: DEXTROSE 50%-WATER 25 GM/50 ML DISP.SYRIN ONE (00:53)
[2022-11-04] MEDS ORDERED: FUROSEMIDE 40 MG/4 ML INJECTABLE VIAL ONE (00:55)
[2022-11-04 02:03] LABS: EPI CELLS 19 /uL (0-25.1); HYALINE CASTS 19 /uL (0-3.1); URINE APPEARANCE TURBID; URINE BACTERIA >9,000 /uL (0-1359); URINE BILIRUBIN NEGATIVE (NEGATIVE); URINE COLOR YELLOW; URINE GLUCOSE (UA) NEGATIVE (NEGATIVE); URINE KETONE NEGATIVE (NEGATIVE); URINE LEUK ESTERASE 3+ (NEGATIVE); URINE NITRITE NEGATIVE (NEGATIVE); URINE PROTEIN 3+ (NEGATIVE); URINE RBC 109 /uL (0-23.9); URINE UROBILINOGEN 0.2 mg/dL (0.2-1.0); URINE WBC 3910 /uL (0-25.8)
[2022-11-04] MEDS ORDERED: CEFTRIAXONE 1 GM in DEXTROSE 5%-WATER - 100 ML IVPB ONE (02:22)
[2022-11-04] MEDS ORDERED: CEFTRIAXONE 1 GM/50 ML BAG ONE (02:31)
[2022-11-04] MEDS ORDERED: ALBUTEROL SO4 HFA INHALER IH PRN (03:09)
[2022-11-04 03:39] LABS: BLOOD UREA NITROGEN 56.2 mg/dL (7-18); CALCIUM 8.9 mg/dL (8.5-10.1); CREATININE 4.5 mg/dL (0.55-1.3)
[2022-11-04] MEDS ORDERED: SODIUM CHLORIDE 250 ML IV PRN (05:56)
[2022-11-04] MEDS ORDERED: HYDROCORTISONE 10 MG TABLET PO SCH (07:00)
[2022-11-04 07:53] LABS: BASO % 0.1 % (0-2.0); EOS % 0.2 % (0-4.5); HEMATOCRIT 31.4 % (32.4-45.2); HEMOGLOBIN 9.7 GM/dL (10.7-15.3); LYMPH % 5.5 % (8-40); MCHC 30.8 g/dl (32.0-36.0); MEAN CELL VOLUME 97.3 fl (80-96); MEAN PLT VOLUME 8.7 fl (7.5-11.1); MONO % 6.6 % (3.8-10.2); NEUT % 87.6 % (42.8-82.8); PLATELET COUNT 157 10^3/uL (134-434); RBC 3.23 M/mm3 (3.60-5.2); RDW 23.1 % (11.6-15.6); WHITE BLOOD COUNT 11.3 K/mm3 (4.0-10.0)
[2022-11-04 08:05] LABS: MAGNESIUM 1.8 mg/dL (1.8-2.4)
[2022-11-04 08:07] LABS: BLOOD UREA NITROGEN 58.8 mg/dL (7-18)
[2022-11-04 08:08] LABS: CALCIUM 9.2 mg/dL (8.5-10.1)
[2022-11-04 08:10] LABS: CREATININE 4.4 mg/dL (0.55-1.3)
[2022-11-04 08:42] LABS: YEAST NO SEEN (NEGATIVE)
[2022-11-04] MEDS: POLYETHYLENE GLYCOL (HEALTHYLAX) 3350 17 GM PACKET PO SCH ×2 (09:56→11:24)
[2022-11-04] MEDS: PANTOPRAZOLE 40 MG TABLET PO SCH (09:56)
[2022-11-04] MEDS: MIDODRINE HCL 5 MG TABLET PO SCH ×4 (09:56→17:24)
[2022-11-04] MEDS: TAMSULOSIN HCL 0.4 MG CAP PO SCH (09:56)
[2022-11-04] MEDS: CINACALCET HCL 30 MG TAB (FP) PO SCH ×2 (09:56→11:24)
[2022-11-04] MEDS ORDERED: HEPARIN NA (PORCINE) 5,000 UNITS/ML 1ML VIAL SQ SCH (10:00)
[2022-11-04] MEDS: LIDOCAINE 5% TOPICAL PATCH TP SCH (11:23)
[2022-11-04] MEDS ORDERED: AMINO ACIDS 4.25%/D5W 1,000 ML IV SCH ×2 (13:30→13:45)
[2022-11-04] MEDS ORDERED: EPOETIN ALFA-EPBX 4,000 UNIT/ML VIAL SQ ONE (18:45)
[2022-11-04] MEDS: HYDROCORTISONE 10 MG TABLET PO SCH (21:58)
[2022-11-04] MEDS: ALPRAZolam 0.25 MG TABLET PO PRN (21:58)
[2022-11-04] MEDS: LIDOCAINE PATCH REMOVAL MC SCH (21:59)
[2022-11-05] MEDS: HYDROCORTISONE 20 MG TABLET PO SCH (06:29)
[2022-11-05] MEDS: TAMSULOSIN HCL 0.4 MG CAP PO SCH (08:45)
[2022-11-05] MEDS: LIDOCAINE 5% TOPICAL PATCH TP SCH (11:02)
[2022-11-05] MEDS: PANTOPRAZOLE 40 MG TABLET PO SCH (11:03)
[2022-11-05] MEDS: MIDODRINE HCL 5 MG TABLET PO SCH ×3 (11:03→18:33)
[2022-11-05] MEDS: CEFTRIAXONE 1 GM in DEXTROSE 5%-WATER - 50 ML IVPB SCH (11:04)
[2022-11-05] MEDS: CINACALCET HCL 30 MG TAB (FP) PO SCH (11:13)
[2022-11-05] MEDS: POLYETHYLENE GLYCOL (HEALTHYLAX) 3350 17 GM PACKET PO SCH (11:36)
[2022-11-05] MEDS: ALPRAZolam 0.25 MG TABLET PO PRN (21:30)
[2022-11-05] MEDS: LIDOCAINE PATCH REMOVAL MC SCH (21:35)
[2022-11-06] MEDS: HYDROCORTISONE 10 MG TABLET PO SCH ×2 (00:59→21:36)
[2022-11-06] MEDS ORDERED: ALPRAZolam 0.25 MG TABLET PO PRN (02:36)
[2022-11-06] MEDS: HYDROCORTISONE 20 MG TABLET PO SCH ×2 (06:14→07:20)
[2022-11-06] MEDS ORDERED: SODIUM CHLORIDE 250 ML IV PRN (08:00)
[2022-11-06] MEDS: POLYETHYLENE GLYCOL (HEALTHYLAX) 3350 17 GM PACKET PO SCH (09:56)
[2022-11-06] MEDS: CEFTRIAXONE 1 GM in DEXTROSE 5%-WATER - 50 ML IVPB SCH ×2 (09:56→11:45)
[2022-11-06] MEDS: CINACALCET HCL 30 MG TAB (FP) PO SCH (09:57)
[2022-11-06] MEDS: TAMSULOSIN HCL 0.4 MG CAP PO SCH (09:57)
[2022-11-06] MEDS: LIDOCAINE 5% TOPICAL PATCH TP SCH ×2 (09:58→11:30)
[2022-11-06] MEDS: MIDODRINE HCL 5 MG TABLET PO SCH ×3 (09:58→18:17)
[2022-11-06] MEDS: PANTOPRAZOLE 40 MG TABLET PO SCH (09:58)
[2022-11-06] MEDS: ALPRAZolam 0.25 MG TABLET PO PRN ×2 (13:48→21:36)
[2022-11-06] MEDS ORDERED: ROSUVASTATIN CA 10 MG TABLET PO SCH (22:00)
[2022-11-06] MEDS: LIDOCAINE PATCH REMOVAL MC SCH (23:22)
[2022-11-07] MEDS: ALPRAZolam 0.25 MG TABLET PO PRN ×2 (05:49→18:20)
[2022-11-07] MEDS: ALBUMIN HUMAN 25% 12.5 GM/50 ML VIAL IV SCH ×3 (07:45→10:02)
[2022-11-07] MEDS ORDERED: EPOETIN ALFA-EPBX 4,000 UNIT/ML VIAL SQ ONE (08:00)
[2022-11-07] MEDS: CINACALCET HCL 30 MG TAB (FP) PO SCH (11:46)
[2022-11-07] MEDS: MIDODRINE HCL 5 MG TABLET PO SCH ×3 (11:46→17:23)
[2022-11-07] MEDS: TAMSULOSIN HCL 0.4 MG CAP PO SCH (11:47)
[2022-11-07] MEDS: LIDOCAINE 5% TOPICAL PATCH TP SCH (11:47)
[2022-11-07] MEDS: PANTOPRAZOLE 40 MG TABLET PO SCH (11:47)
[2022-11-07] MEDS: HYDROCORTISONE 20 MG TABLET PO SCH (11:47)
[2022-11-07] MEDS: POLYETHYLENE GLYCOL (HEALTHYLAX) 3350 17 GM PACKET PO SCH (11:47)
[2022-11-07] MEDS: CEFTRIAXONE 1 GM in DEXTROSE 5%-WATER - 50 ML IVPB SCH (11:48)
[2022-11-07 12:35] LABS: HEMATOCRIT 33.1 % (32.4-45.2); HEMOGLOBIN 10.4 GM/dL (10.7-15.3); MCH 30.4 pg (25.7-33.7); MCHC 31.3 g/dl (32.0-36.0); MEAN CELL VOLUME 97.2 fl (80-96); MEAN PLT VOLUME 7.6 fl (7.5-11.1); PLATELET COUNT 144 10^3/uL (134-434); RBC 3.41 M/mm3 (3.60-5.2); WHITE BLOOD COUNT 9.9 K/mm3 (4.0-10.0)
[2022-11-07 12:59] LABS: CALCIUM 8.5 mg/dL (8.5-10.1)
[2022-11-07 13:00] LABS: ALBUMIN 3.4 g/dl (3.4-5.0)
[2022-11-07 13:02] LABS: CREATININE 2.3 mg/dL (0.55-1.3)
[2022-11-07 13:04] LABS: BILIRUBIN,TOTAL 0.5 mg/dL (0.2-1); TOT PROT 5.7 g/dl (6.4-8.2)
[2022-11-07 13:06] LABS: BLOOD UREA NITROGEN 21.2 mg/dL (7-18)
[2022-11-07 18:37] VITALS: BP 110/72; PULSE 108; RESP 19; TEMP 97.8
== END 2022-11-07 19:09 | DRG 682 ==
LOC: JER 20:53 → UNDOADMIN 11-04 00:41 → JERBED 11-04 00:41 → J4W 11-04 03:37 → J5S 11-05 15:47
PROVIDERS: ADMIT Internal Medicine; ATTEND Internal Medicine
PROC: 5A1D70Z Performance of Urinary Filtration, Intermittent, Less than 6 Hours Per Day (ICD-10-PCS; principal; 2022-11-04)
PROC: 5A1D70Z Performance of Urinary Filtration, Intermittent, Less than 6 Hours Per Day (ICD-10-PCS; 2022-11-07)
DX: I12.0 Hypertensive chronic kidney disease with stage 5 chronic kidney disease or end stage renal disease (principal); N18.6 End stage renal disease; U07.1 COVID-19; N39.0 Urinary tract infection, site not specified; E87.5 Hyperkalemia; I25.10 Atherosclerotic heart disease of native coronary artery without angina pectoris; J44.9 Chronic obstructive pulmonary disease, unspecified; D72.829 Elevated white blood cell count, unspecified; R33.9 Retention of urine, unspecified; F41.9 Anxiety disorder, unspecified; M41.9 Scoliosis, unspecified; E78.5 Hyperlipidemia, unspecified; K21.9 Gastro-esophageal reflux disease without esophagitis; Z99.2 Dependence on renal dialysis; Z95.1 Presence of aortocoronary bypass graft
CPT/HCPCS: 36415; 71045-TC-FY; 80048; 80053; 81003; 83735; 84100; 85025; 85027; 87086; 87186; 93005; 93010; 93971; 99285-25; C9803-CS; P9047; Q5106; U0003; U0005

== ENCOUNTER 2022-11-20 19:12 | Emergency (ER) | payer OTHER ==
[2022-11-20 20:04] VITALS: BMI 33.1
[2022-11-21 00:54] LABS: HEMATOCRIT 24.8 % (32.4-45.2); HEMOGLOBIN 7.6 GM/dL (10.7-15.3); MCH 29.1 pg (25.7-33.7); MCHC 30.6 g/dl (32.0-36.0); MEAN CELL VOLUME 95.2 fl (80-96); MEAN PLT VOLUME 8.6 fl (7.5-11.1); PLATELET COUNT 147 10^3/uL (134-434); RDW 18.7 % (11.6-15.6)
[2022-11-21 01:01] LABS: INR 1.11 (0.83-1.09); PROTHROMBIN TIME (PATIENT) 12.8 SEC (9.7-13.0)
[2022-11-21 01:04] LABS: ACTIVATED PTT 18.8 SECONDS (25.2-36.5)
[2022-11-21 01:17] LABS: CALCIUM 9.1 mg/dL (8.5-10.1)
[2022-11-21 01:18] LABS: ALBUMIN 2.8 g/dl (3.4-5.0); BLOOD UREA NITROGEN 35.7 mg/dL (7-18)
[2022-11-21 01:21] LABS: CREATININE 2.1 mg/dL (0.55-1.3); TOT PROT 5.2 g/dl (6.4-8.2)
[2022-11-21 01:23] LABS: BILIRUBIN,TOTAL 0.5 mg/dL (0.2-1)
[2022-11-21 02:42] VITALS: BP 105/63; PULSE 68; RESP 18; TEMP 98.1
[2022-11-21 08:45] LABS: ANISOCYTOSIS 0; MACROCYTOSIS 0; TARGET CELLS 1+
== END 2022-11-21 03:00 | disposition short-term general hospital (02) ==
LOC: JER 19:12
DX: T82.838A Hemorrhage due to vascular prosthetic devices, implants and grafts, initial encounter (principal)
CPT/HCPCS: 36415; 80053; 85025; 85610; 85730; 86850; 86870; 86900; 86901; 86902; 99285-25

== ENCOUNTER 2022-11-24 18:13 | Emergency (ER) | payer OTHER ==
[2022-11-24 19:30] VITALS: BMI 16.6
[2022-11-24 21:14] LABS: BASO % 0.2 % (0-2.0); HEMATOCRIT 22.9 % (32.4-45.2); LYMPH % 6.5 % (8-40); MCH 29.4 pg (25.7-33.7); MCHC 30.6 g/dl (32.0-36.0); MEAN CELL VOLUME 96.2 fl (80-96); MEAN PLT VOLUME 7.7 fl (7.5-11.1); MONO % 5.5 % (3.8-10.2); NEUT % 87.8 % (42.8-82.8); PLATELET COUNT 197 10^3/uL (134-434); RBC 2.39 M/mm3 (3.60-5.2); RDW 19.8 % (11.6-15.6); WHITE BLOOD COUNT 8.3 K/mm3 (4.0-10.0)
[2022-11-24 21:28] LABS: CALCIUM 9.1 mg/dL (8.5-10.1)
[2022-11-24 21:29] LABS: ALBUMIN 2.7 g/dl (3.4-5.0); BLOOD UREA NITROGEN 17.7 mg/dL (7-18)
[2022-11-24 21:32] LABS: CREATININE 1.4 mg/dL (0.55-1.3)
[2022-11-24 21:34] LABS: BILIRUBIN,TOTAL 0.4 mg/dL (0.2-1); TOT PROT 4.8 g/dl (6.4-8.2)
[2022-11-24 23:17] LABS: INR 1.19 (0.83-1.09); PROTHROMBIN TIME (PATIENT) 13.7 SEC (9.7-13.0)
[2022-11-24 23:20] LABS: ACTIVATED PTT 28.6 SECONDS (25.2-36.5)
[2022-11-25 15:01] VITALS: TEMP 97.9
[2022-11-25 18:36] VITALS: BP 108/62; PULSE 98; RESP 18
== END 2022-11-25 18:43 ==
LOC: JER 18:13
DX: D64.9 Anemia, unspecified (principal)
CPT/HCPCS: 0241U-QW; 36415; 36430; 80053; 82272; 85025; 85610; 85730; 86850; 86870; 86900; 86901; 86902; 86922; 93005; 93010; 93971-TC; 99285-25; P9058